=== PATIENT | male | born 1960 | race Two or more races ===

== ENCOUNTER 2017-05-09 09:31 | Emergency (ER) | payer OTHER ==
[~2017-05-09] VITALS: Ht 170.2 cm; Wt 90.7 kg
[~2017-05-09 09:31] MED LIST: ASA81 MG; ASPIR 8181 MG PO; AVAPRO300 MG; BACTROBAN OINT22 GM TP; CARVEDILOL25 MG; CATAFLAN; CIPRO750 MG; COREG CR20 MG; DOLOGESIC 500-1 EACH PO; FLEXERIL; FLONASE16 GM; GABAPENTIN100 MG; GABAPENTIN300 MG; GLUCOPHAGE XR750 MG; GLUCOPHAGE XR750 MG PO; HUMALOG MI100 UNIT/2; HUMALOG MIX 75/10 ML; LANTUS SOL100 UNIT/1; LUMIGAN2.5 M1; MECLIZINE HCL25 M1 PO; METFORMIN HCL1000 MG; MUPIROCIN15 GM TP; NEURONTIN300 MG PO; NIFE60TA3; NIFE60TA3 PO; NORFLEX100MG PO; NOVOLIN R100 UNIT/1; QUINAPRIL-HCTZ1 TA1; SYNTHROID75 MCG; SYNTHROID75 MCG PO; TRUSOPT10 ML; ULTRAM50 MG; ZOCOR20 MG
== END 2017-05-09 16:34 | disposition home or self-care (01) ==
LOC: ER 09:31 → CPU-OBS 10:10 → ER 10:10
DX: I10 Essential (primary) hypertension (principal); R07.89 Other chest pain

== ENCOUNTER → 2017-05-17 | Emergency (ER) | payer OTHER ==
[~2017-05-17] VITALS: Ht 172.7 cm; Wt 149.7 kg
== END | disposition home or self-care (01) ==
LOC: ER 12:21
DX: S60.211A Contusion of right wrist, initial encounter (principal); W22.8XXA Striking against or struck by other objects, initial encounter; Y93.89 Activity, other specified; Y92.89 Other specified places as the place of occurrence of the external cause; Y99.8 Other external cause status

== ENCOUNTER → 2017-05-30 | Emergency (ER) | payer OTHER ==
[~2017-05-30] VITALS: Ht 175.3 cm; Wt 136.1 kg
== END | disposition home or self-care (01) ==
LOC: ER 13:43
DX: L02.511 Cutaneous abscess of right hand (principal); S60.01 Contusion of thumb without damage to nail; W23.0XXS Caught, crushed, jammed, or pinched between moving objects, sequela

== ENCOUNTER 2017-08-11 13:23 | Emergency (ER) | payer OTHER ==
[~2017-08-11] VITALS: Ht 172.7 cm; Wt 145.1 kg
== END 2017-08-11 14:48 | disposition home or self-care (01) ==
LOC: ER 13:23
DX: L02.612 Cutaneous abscess of left foot (principal)

== ENCOUNTER 2017-10-06 09:14 | Inpatient (IN) | payer OTHER ==
[~2017-10-06] VITALS: Ht 172.7 cm; Wt 147.4 kg
[2017-10-08] MEDS ORDERED: ELIQUIS5 MG PO (07:58)
[2017-10-08] MEDS ORDERED: AVAPRO150 MG PO (07:59)
[2017-10-08] MEDS ORDERED: IRON1TAB4 PO (07:59)
[2017-10-08] MEDS ORDERED: CARDIZEM60 MG PO (07:59)
[2017-10-08] MEDS ORDERED: XOPENEX0.63 MG/3 IH (08:00)
== END 2017-10-08 10:31 | disposition home or self-care (01) | DRG 191 ==
LOC: ER 09:14 → MEDJ 15:12 → MEDI 15:12 → MEDJ 10-08 10:31
PROC: B246ZZZ Ultrasonography of Right and Left Heart (ICD-10-PCS; 2017-10-06)
PROC: 4A12X4Z Monitoring of Cardiac Electrical Activity, External Approach (ICD-10-PCS; 2017-10-06)
PROC: 3E0F7GC Introduction of Other Therapeutic Substance into Respiratory Tract, Via Natural or Artificial Opening (ICD-10-PCS; principal; 2017-10-07)
DX: J44.1 Chronic obstructive pulmonary disease with (acute) exacerbation (principal); L97.828 Non-pressure chronic ulcer of other part of left lower leg with other specified severity; I48.0 Paroxysmal atrial fibrillation; I10 Essential (primary) hypertension; D50.8 Other iron deficiency anemias; H54.8 Legal blindness, as defined in USA; E66.01 Morbid (severe) obesity due to excess calories; G47.33 Obstructive sleep apnea (adult) (pediatric); E11.622 Type 2 diabetes mellitus with other skin ulcer; E11.65 Type 2 diabetes mellitus with hyperglycemia

== ENCOUNTER 2018-03-15 15:36 | Emergency (ER) | payer OTHER ==
[~2018-03-15] VITALS: Ht 172.7 cm; Wt 149.7 kg
[~2018-03-15 15:36] MED LIST changes: +AVAPRO150 MG PO; +CARDIZEM60 MG PO; +ELIQUIS5 MG PO; +IRON1TAB4 PO; +XOPENEX0.63 MG/3 IH
== END 2018-03-15 21:43 | disposition home or self-care (01) ==
LOC: ER 15:36
DX: J06.9 Acute upper respiratory infection, unspecified (principal)

== ENCOUNTER 2018-05-07 18:10 | Emergency (ER) | payer OTHER ==
[~2018-05-07] VITALS: Ht 175.3 cm; Wt 158.8 kg
== END 2018-05-08 01:03 | disposition home or self-care (01) ==
LOC: ER 18:10
DX: K52.89 Other specified noninfective gastroenteritis and colitis (principal)

== ENCOUNTER 2018-07-21 00:20 | Emergency (ER) | payer OTHER ==
[~2018-07-21] VITALS: Ht 172.7 cm; Wt 127.0 kg
[2018-07-21] MEDS ORDERED: PEPCID40 MG PO (08:49)
[2018-07-21] MEDS ORDERED: ZOFRAN ODT8 MG PO (08:49)
== END 2018-07-21 09:05 | disposition home or self-care (01) ==
LOC: ER 00:20
DX: K29.60 Other gastritis without bleeding (principal)

== ENCOUNTER 2018-07-23 11:01 | Outpatient (CLI) | payer OTHER ==
[~2018-07-23 11:01] MED LIST changes: +PEPCID40 MG PO; +ZOFRAN ODT8 MG PO
== END 2018-07-23 14:41 | disposition home or self-care (01) ==
LOC: LAB 11:01
DX: N40.0 Benign prostatic hyperplasia without lower urinary tract symptoms (principal); R97.20 Elevated prostate specific antigen [PSA]; N40.1 Benign prostatic hyperplasia with lower urinary tract symptoms

== ENCOUNTER 2018-08-24 13:47 | Emergency (ER) | payer OTHER ==
[~2018-08-24] VITALS: Ht 177.8 cm; Wt 127.0 kg
[2018-08-24] MEDS ORDERED: HUMALOG JU100 UNIT/1 (14:45)
[2018-08-24] MEDS ORDERED: GLUCOPHAGE XR750 MG (14:45)
[2018-08-24] MEDS ORDERED: MICROZIDE12.5 MG (14:46)
[2018-08-24] MEDS ORDERED: ECOTRIN81 MG (14:46)
== END 2018-08-24 17:44 | disposition home or self-care (01) ==
LOC: ER 13:47
DX: J09.X2 Influenza due to identified novel influenza A virus with other respiratory manifestations (principal)

== ENCOUNTER 2018-10-30 17:55 | Emergency (ER) | payer OTHER ==
[~2018-10-30] VITALS: Ht 170.2 cm; Wt 138.3 kg
[~2018-10-30 17:55] MED LIST changes: +ECOTRIN81 MG; +HUMALOG JU100 UNIT/1; +MICROZIDE12.5 MG
== END 2018-10-31 | disposition home or self-care (01) ==
LOC: ER 17:55
DX: A41.89 Other specified sepsis (principal); M25.571 Pain in right ankle and joints of right foot; N39.0 Urinary tract infection, site not specified

== ENCOUNTER 2018-12-24 10:31 | Outpatient (CLI) | payer OTHER | END 2018-12-24 10:42 | disposition home or self-care (01) | LOC: NUCLEAR 10:31 | DX: M14.672 Charcot's joint, left ankle and foot (principal); I73.9 Peripheral vascular disease, unspecified ==

== ENCOUNTER 2019-01-19 14:10 | Emergency (ER) | payer OTHER ==
[~2019-01-19] VITALS: Ht 172.7 cm; Wt 127.0 kg
== END 2019-01-19 18:09 | disposition home or self-care (01) ==
LOC: ER 14:10 → EMR PED 14:10 → ER 15:18
DX: G89.29 Other chronic pain (principal); M25.562 Pain in left knee; M25.561 Pain in right knee

== ENCOUNTER 2019-02-26 20:10 | Emergency (ER) | payer OTHER ==
[~2019-02-26] VITALS: Ht 175.3 cm; Wt 158.8 kg
[2019-02-26] MEDS ORDERED: NIFEDIPINE20 MG (20:50)
[2019-02-26] MEDS ORDERED: CARVEDILOL ER40 MG (20:50)
[2019-02-26] MEDS ORDERED: ZYLOPRIM300 MG (20:51)
[2019-02-26] MEDS ORDERED: AVAPRO150 MG (20:51)
[2019-02-26] MEDS ORDERED: SIMVASTATIN80 MG (20:51)
== END 2019-02-26 23:01 | disposition home or self-care (01) ==
LOC: ER 20:10
DX: R00.2 Palpitations (principal); F41.1 Generalized anxiety disorder

== ENCOUNTER 2019-04-04 12:01 | Emergency (ER) | payer OTHER ==
[~2019-04-04] VITALS: Ht 172.7 cm; Wt 117.9 kg
[~2019-04-04 12:01] MED LIST changes: +AVAPRO150 MG; +CARVEDILOL ER40 MG; +NIFEDIPINE20 MG; +SIMVASTATIN80 MG; +ZYLOPRIM300 MG
== END 2019-04-04 17:05 | disposition home or self-care (01) ==
LOC: ER 12:01
DX: K29.60 Other gastritis without bleeding (principal)

== ENCOUNTER 2019-12-23 13:21 | Inpatient (IN) | payer OTHER ==
[~2019-12-23] VITALS: Ht 162.6 cm; Wt 136.1 kg
== END 2020-01-13 22:36 | disposition home or self-care (01) | DRG 623 ==
LOC: ER 13:21 → SEC-K 20:14 → SURH 20:14 → SEC-K 12-24 12:05 → MEDI 12-24 18:51 → SEC-K 12-24 21:55 → MEDI 12-24 21:56 → SURH 01-04 17:05
PROVIDERS: ADMIT Internal Medicine; ATTEND Internal Medicine
PROC: B54DZZZ Ultrasonography of Bilateral Lower Extremity Veins (ICD-10-PCS; 2019-12-23)
PROC: 3E0F7GC Introduction of Other Therapeutic Substance into Respiratory Tract, Via Natural or Artificial Opening (ICD-10-PCS; 2019-12-23)
PROC: 4A033R1 Measurement of Arterial Saturation, Peripheral, Percutaneous Approach (ICD-10-PCS; 2019-12-23)
PROC: B44HZZZ Ultrasonography of Bilateral Lower Extremity Arteries (ICD-10-PCS; 2019-12-23)
PROC: 0T9B70Z Drainage of Bladder with Drainage Device, Via Natural or Artificial Opening (ICD-10-PCS; 2019-12-23)
PROC: BT4JZZZ Ultrasonography of Kidneys and Bladder (ICD-10-PCS; 2019-12-25)
PROC: 8E0ZXY6 Isolation (ICD-10-PCS; 2019-12-25)
PROC: 0JBR0ZZ Excision of Left Foot Subcutaneous Tissue and Fascia, Open Approach (ICD-10-PCS; principal; 2019-12-28)
DX: E11.621 Type 2 diabetes mellitus with foot ulcer (principal); B37.89 Other sites of candidiasis; L97.423 Non-pressure chronic ulcer of left heel and midfoot with necrosis of muscle; L03.116 Cellulitis of left lower limb; B95.61 Methicillin susceptible Staphylococcus aureus infection as the cause of diseases classified elsewhere; I87.2 Venous insufficiency (chronic) (peripheral); G47.33 Obstructive sleep apnea (adult) (pediatric); E03.8 Other specified hypothyroidism; E66.01 Morbid (severe) obesity due to excess calories; E11.610 Type 2 diabetes mellitus with diabetic neuropathic arthropathy; E11.65 Type 2 diabetes mellitus with hyperglycemia; E11.40 Type 2 diabetes mellitus with diabetic neuropathy, unspecified; R31.29 Other microscopic hematuria; F41.1 Generalized anxiety disorder; Z79.4 Long term (current) use of insulin; Z03.818 Encounter for observation for suspected exposure to other biological agents ruled out

== ENCOUNTER 2020-01-14 10:33 | Emergency (ER) | payer OTHER ==
[~2020-01-14] VITALS: Ht 172.7 cm; Wt 149.7 kg
== END 2020-01-16 00:08 | disposition home or self-care (01) ==
LOC: ER 10:33
DX: E11.621 Type 2 diabetes mellitus with foot ulcer (principal); L97.428 Non-pressure chronic ulcer of left heel and midfoot with other specified severity; R53.81 Other malaise; J45.998 Other asthma; Z74.01 Bed confinement status

== ENCOUNTER 2020-01-20 13:05 | Emergency (ER) | payer OTHER ==
[~2020-01-20] VITALS: Ht 172.7 cm; Wt 136.1 kg
[2020-01-20] MEDS ORDERED: ZITHROMAX500 MG PO (15:02)
== END 2020-01-20 16:52 | disposition home or self-care (01) ==
LOC: ER 13:05
DX: H66.91 Otitis media, unspecified, right ear (principal)

== ENCOUNTER 2020-01-27 14:07 | Emergency (ER) | payer OTHER ==
[~2020-01-27] VITALS: Ht 172.7 cm; Wt 136.1 kg
[~2020-01-27 14:07] MED LIST changes: +ZITHROMAX500 MG PO
[2020-01-27] MEDS ORDERED: ANALPRAM HC 2.530 GM RECTAL (14:24)
== END 2020-01-27 15:30 | disposition home or self-care (01) ==
LOC: ER 14:07
DX: K64.8 Other hemorrhoids (principal)

== ENCOUNTER 2020-02-12 14:50 | Inpatient (IN) | payer OTHER ==
[~2020-02-12] VITALS: Ht 172.7 cm; Wt 136.1 kg
[~2020-02-12 14:50] MED LIST changes: +ANALPRAM HC 2.530 GM RECTAL
--- NOTE | 2020-02-12 16:18 | NUR ---
PTE SE RECIBE POR MOLESTIA EN EL CUERPO REFIERE PARAMEDICO Y PTE.
--- NOTE | 2020-02-12 16:19 | NUR ---
SE ORIENTA AL PACIENTE SOBRE EL TX. SE EXTRAEN MUESTRAS DE DIANNA BAJO MEDIDAS ASEPTICAS SE ROTULAN Y ENVIAN AL LABORATORIO. PTE CON ARCE DE COMUNIDAD. AL MOMENTO VACIO SIN ORINA.
== END 2020-02-16 12:38 | disposition home or self-care (01) | DRG 690 ==
LOC: ER 14:50 → MEDI 20:12
PROVIDERS: ADMIT Internal Medicine; ATTEND Internal Medicine
DX: N39.0 Urinary tract infection, site not specified (principal); L97.518 Non-pressure chronic ulcer of other part of right foot with other specified severity; E11.621 Type 2 diabetes mellitus with foot ulcer; E66.01 Morbid (severe) obesity due to excess calories; B96.29 Other Escherichia coli [E. coli] as the cause of diseases classified elsewhere; Z20.828 Contact with and (suspected) exposure to other viral communicable diseases; Z74.01 Bed confinement status

== ENCOUNTER 2020-03-25 16:29 | Inpatient (IN) | payer OTHER ==
[~2020-03-25] VITALS: Ht 172.7 cm; Wt 108.9 kg
--- NOTE | 2020-03-25 16:40 | NUR ---
PTE ALERTA Y ORIENTADO X 3 ESFERAS RECIBIDO EN AMBULANCIA,EN COMPANIA DE FAMILIAR,REFIERE VENIR POR ULCERA EN PIERNA LT.
--- NOTE | 2020-03-25 17:33 | NUR ---
PACIENTE ALERTA Y ORIENTADO EN FIFI KAVON ESFERAS. MS. CHAUDHARI ORIENTA A PACIENTE SOBRE PROCEDIMIENTO Y TX, REFIERE ENTENDER, EXTRAE MUESTRAS DE LABORATROIO CON MEDIDAS ASEPTICAS Y ADMINISTRA MEDICAMENTOS ANTHONY ORDEN MEDICA.
--- NOTE | 2020-03-26 01:30 | NUR ---
SE RECIBE MASCULINO ALERTA Y ORIENTADO POR KAVON ESFERAS, EN [place] CON BARANDAS SEGURAS Y ELEVADAS. AREA DE VENOPUNCION JENNYFER DE EDEMA O ENROJECIMIENTO. RECIBIENDO IVF ORDENADO. ARCE PATENTE DRENANDO ORINA COLOR AMARILLO. SE MANTIENE EN OBSERVACION POR CAMBIOS EN ESPERA DE MEDICO CONSULTADO.
--- NOTE | 2020-03-26 07:02 | NUR ---
PACIENTE ALERTA Y ORIENTADO EN FIFI KAVON ESFERAS, PRESENTA BUEN PATRON RESPIRATORIO Y JENNYFER DE DOLOR. RECIBIENDO 0.9% NSS A 150 ML/HR, VENOPUNCION PATENTE Y JENNYFER DE S/S DE FLEBITIS E INFILTRACION, SONDA URINARIA DRENANDO ORINA AMARILLO INTENSO. PENDIENTE EVALUACION DE MEDICINA INTERNA DR CHAUDHARI JOHNSON POR ULCERA EN PIERNA LT.
== END 2020-03-29 17:47 | disposition home or self-care (01) | DRG 638 ==
LOC: ER 16:29 → SEC-K 03-26 14:37 → SURG 03-26 19:26 → MEDJ 03-26 20:21
PROVIDERS: ADMIT Internal Medicine; ATTEND Internal Medicine
PROC: 3E0F7GC Introduction of Other Therapeutic Substance into Respiratory Tract, Via Natural or Artificial Opening (ICD-10-PCS; principal; 2020-03-26)
DX: E11.628 Type 2 diabetes mellitus with other skin complications (principal); L97.528 Non-pressure chronic ulcer of other part of left foot with other specified severity; L08.89 Other specified local infections of the skin and subcutaneous tissue; Z20.828 Contact with and (suspected) exposure to other viral communicable diseases; B96.5 Pseudomonas (aeruginosa) (mallei) (pseudomallei) as the cause of diseases classified elsewhere; B95.2 Enterococcus as the cause of diseases classified elsewhere; B95.1 Streptococcus, group B, as the cause of diseases classified elsewhere; I13.10 Hypertensive heart and chronic kidney disease without heart failure, with stage 1 through stage 4 chronic kidney disease, or unspecified chronic kidney disease; N18.9 Chronic kidney disease, unspecified; E66.01 Morbid (severe) obesity due to excess calories

== ENCOUNTER 2021-08-02 11:33 | Inpatient (IN) | payer OTHER ==
[~2021-08-02] VITALS: Ht 172.7 cm; Wt 99.8 kg
[2021-08-02] MEDS ORDERED: GLUMETZA500 MG (11:50)
[2021-08-02] MEDS ORDERED: HUMALOG100 UNIT/2 (11:50)
[2021-08-02] MEDS ORDERED: HUMULIN R100 UNIT/1 (11:51)
[2021-08-03] MEDS ORDERED: FLONASE16 GM (10:46)
[2021-08-03] MEDS ORDERED: DORZOLAMIDE HCL10 ML (10:47)
[2021-08-03] MEDS ORDERED: SERTRALINE HCL50 MG (10:47)
[2021-08-03] MEDS ORDERED: LUMIGAN2.5 M1 (10:47)
[2021-08-03] MEDS ORDERED: HUMALOG MI100 UNIT/2 (10:47)
[2021-08-03] MEDS ORDERED: CARVEDILOL12.5 M1 (10:47)
[2021-08-03] MEDS ORDERED: LEVOTHYROXINE25 MC1 (10:47)
[2021-08-03] MEDS ORDERED: COMBIGAN EYE DRO5 ML (10:48)
[2021-08-03] MEDS ORDERED: BUDESONIDE-FO10.2 G1 (10:48)
== END 2021-08-10 18:09 | disposition home or self-care (01) | DRG 690 ==
LOC: ER 11:33 → SEC-K 21:17 → MEDJ 21:17
PROVIDERS: ADMIT Internal Medicine; ATTEND Internal Medicine
PROC: 3E0F7GC Introduction of Other Therapeutic Substance into Respiratory Tract, Via Natural or Artificial Opening (ICD-10-PCS; principal; 2021-08-04)
DX: N39.0 Urinary tract infection, site not specified (principal); J45.901 Unspecified asthma with (acute) exacerbation; L97.328 Non-pressure chronic ulcer of left ankle with other specified severity; N40.1 Benign prostatic hyperplasia with lower urinary tract symptoms; I13.10 Hypertensive heart and chronic kidney disease without heart failure, with stage 1 through stage 4 chronic kidney disease, or unspecified chronic kidney disease; E11.22 Type 2 diabetes mellitus with diabetic chronic kidney disease; E11.40 Type 2 diabetes mellitus with diabetic neuropathy, unspecified; E11.621 Type 2 diabetes mellitus with foot ulcer; N18.9 Chronic kidney disease, unspecified; L08.89 Other specified local infections of the skin and subcutaneous tissue; B95.2 Enterococcus as the cause of diseases classified elsewhere; B96.4 Proteus (mirabilis) (morganii) as the cause of diseases classified elsewhere; N41.8 Other inflammatory diseases of prostate; G47.33 Obstructive sleep apnea (adult) (pediatric); E66.01 Morbid (severe) obesity due to excess calories; Z74.01 Bed confinement status; Z79.84 Long term (current) use of oral hypoglycemic drugs

== ENCOUNTER 2021-08-13 11:53 | Emergency (ER) | payer OTHER ==
[~2021-08-13] VITALS: Ht 172.7 cm; Wt 99.8 kg
[~2021-08-13 11:53] MED LIST changes: +BUDESONIDE-FO10.2 G1; +CARVEDILOL12.5 M1; +COMBIGAN EYE DRO5 ML; +DORZOLAMIDE HCL10 ML; +GLUMETZA500 MG; +HUMALOG100 UNIT/2; +HUMULIN R100 UNIT/1; +LEVOTHYROXINE25 MC1; +SERTRALINE HCL50 MG
== END 2021-08-13 14:24 | disposition home or self-care (01) ==
LOC: ER 11:53
DX: T83.9XXA Unspecified complication of genitourinary prosthetic device, implant and graft, initial encounter (principal)

== ENCOUNTER 2021-08-30 19:41 | Emergency (ER) | payer OTHER ==
[~2021-08-30] VITALS: Ht 172.7 cm; Wt 99.8 kg
== END 2021-08-31 00:43 | disposition home or self-care (01) ==
LOC: ER 19:41
DX: R33.9 Retention of urine, unspecified (principal); R07.9 Chest pain, unspecified; Z88.2 Allergy status to sulfonamides; Z88.8 Allergy status to other drugs, medicaments and biological substances; E11.9 Type 2 diabetes mellitus without complications; Z79.4 Long term (current) use of insulin; Z79.84 Long term (current) use of oral hypoglycemic drugs; I10 Essential (primary) hypertension

== ENCOUNTER 2022-01-22 22:36 | Emergency (ER) | payer OTHER ==
[~2022-01-22] VITALS: Ht 167.6 cm; Wt 127.0 kg
[2022-01-23] MEDS ORDERED: AZITHROMYCIN500 MG PO (06:22)
[2022-01-23] MEDS ORDERED: LEVALBUTER1.25 MG/0. IH (06:22)
[2022-01-23] MEDS ORDERED: BUDESONIDE0.5 MG/21 IH (06:22)
[2022-01-23] MEDS ORDERED: MUCINEX DM ER1 EAC1 PO (06:22)
== END 2022-01-23 09:09 | disposition home or self-care (01) ==
LOC: ER 22:36
DX: J06.9 Acute upper respiratory infection, unspecified (principal); R06.02 Shortness of breath; E11.9 Type 2 diabetes mellitus without complications; Z79.4 Long term (current) use of insulin; Z79.84 Long term (current) use of oral hypoglycemic drugs; Z20.822 Contact with and (suspected) exposure to COVID-19; Z88.2 Allergy status to sulfonamides; Z88.8 Allergy status to other drugs, medicaments and biological substances

== ENCOUNTER → 2022-02-15 | Outpatient (CLI) | payer OTHER ==
[~2022-02-15] MED LIST changes: +AZITHROMYCIN500 MG PO; +BUDESONIDE0.5 MG/21 IH; +LEVALBUTER1.25 MG/0. IH; +MUCINEX DM ER1 EAC1 PO
== END | disposition home or self-care (01) ==
LOC: RAD 12:01
PROVIDERS: ATTEND General Practice
DX: M25.561 Pain in right knee (principal); M25.562 Pain in left knee; M25.571 Pain in right ankle and joints of right foot

== ENCOUNTER 2022-07-11 14:04 | Outpatient (CLI) | payer OTHER | END 2022-07-11 14:07 | disposition home or self-care (01) | LOC: RAD 14:04 | PROVIDERS: ATTEND Physical Medicine & Rehabilitation | DX: M25.561 Pain in right knee (principal); M25.562 Pain in left knee ==

== ENCOUNTER 2022-07-26 13:49 | Outpatient (CLI) | payer OTHER | END 2022-07-26 13:58 | disposition home or self-care (01) | LOC: RAD 13:49 | PROVIDERS: ATTEND General Practice | DX: M25.572 Pain in left ankle and joints of left foot (principal); M25.571 Pain in right ankle and joints of right foot; M79.672 Pain in left foot; M79.671 Pain in right foot ==

== ENCOUNTER 2022-10-07 15:15 | Emergency (ER) | payer OTHER ==
[~2022-10-07] VITALS: Ht 175.3 cm; Wt 136.1 kg
== END 2022-10-07 20:19 | disposition home or self-care (01) ==
LOC: ER 15:15
DX: B02.8 Zoster with other complications (principal); R53.81 Other malaise; Z88.2 Allergy status to sulfonamides; Z91.041 Radiographic dye allergy status; Z88.1 Allergy status to other antibiotic agents

== ENCOUNTER 2022-10-28 12:16 | Emergency (ER) | payer OTHER ==
[~2022-10-28] VITALS: Ht 172.7 cm; Wt 142.4 kg
[2022-10-28] MEDS ORDERED: SYMBICORT 80/10.2 GM (12:43)
== END 2022-10-28 21:39 | disposition home or self-care (01) ==
LOC: ER 12:16
DX: R00.2 Palpitations (principal); I25.10 Atherosclerotic heart disease of native coronary artery without angina pectoris; E78.00 Pure hypercholesterolemia, unspecified; M19.90 Unspecified osteoarthritis, unspecified site; J44.9 Chronic obstructive pulmonary disease, unspecified; I50.9 Heart failure, unspecified; E05.80 Other thyrotoxicosis without thyrotoxic crisis or storm; Z88.2 Allergy status to sulfonamides; Z91.041 Radiographic dye allergy status; N39.0 Urinary tract infection, site not specified; Z20.822 Contact with and (suspected) exposure to COVID-19

== ENCOUNTER 2023-07-25 10:59 | Emergency (ER) | payer OTHER ==
[~2023-07-25] VITALS: Ht 162.6 cm; Wt 204.1 kg
[~2023-07-25 10:59] MED LIST changes: +SYMBICORT 80/10.2 GM
[2023-07-25] MEDS ORDERED: 0.9 % SODIUM CHLORIDE 1,000 ML IV SCH (11:15)
[2023-07-25 11:44] LABS: HEMATOCRIT 38.8 % (39.0-48.0); MEAN CELL VOLUME 92.1 fL (80.0-100.00); MEAN CORPUSCULAR HEMOGLOBIN 30.9 pg (27.00-32.0); MEAN CORPUSCULAR HGB CONC 33.6 g/dl (32.0-36.0); PLATELET COUNT 291 K/uL (150-450); RED BLOOD COUNT 4.21 M/uL (4.00-6.00); RED CELL DISTRIBUTION WIDTH 14.4 % (11.5-14.5)
[2023-07-25 13:25] LABS: CALCIUM 8.9 mg/dL (8.5-10.1); CREATININE SERUM 1.04 mg/dL (0.70-1.30); GFR 71.9; POTASSIUM 5.09 mEq/L (3.5-5.1)
[2023-07-25 14:13] LABS: ABG PH 7.404 (7.35-7.45); ABG PO2 84.4 mmHg (80-100); BASE EXCESS -1.1 mmol/l; BICARBONATE 23.2 mmol/l (23-25); SaO2 96.3 %; Tco2 24.4 mmol/l; allen test SATISFACTORY; o2 21 %; puncture site RADIAL RIGHT
== END 2023-07-25 17:18 | disposition home or self-care (01) ==
LOC: ER 10:59
PROVIDERS: Emergency Medicine
DX: J22 Unspecified acute lower respiratory infection (principal); R06.02 Shortness of breath; Z20.822 Contact with and (suspected) exposure to COVID-19; I10 Essential (primary) hypertension; E03.8 Other specified hypothyroidism; E11.9 Type 2 diabetes mellitus without complications; Z79.4 Long term (current) use of insulin; Z88.1 Allergy status to other antibiotic agents; Z88.2 Allergy status to sulfonamides; Z91.041 Radiographic dye allergy status
CPT/HCPCS: 36415; 71045; 82803; 93005; 96365; 96366; 99283; J7030

== ENCOUNTER 2023-07-29 12:20 | Emergency (ER) | payer OTHER ==
[~2023-07-29] VITALS: Ht 172.7 cm; Wt 165.1 kg
[2023-07-29] MEDS ORDERED: ONDANSETRON HCL 2 MG/ML VIAL IV STA (12:23)
[2023-07-29] MEDS ORDERED: FAMOTIDINE/PF 20 MG in 0.9 % SODIUM CHLORIDE 8 ML IV PUSH STA (12:23)
[2023-07-29] MEDS ORDERED: 0.9 % SODIUM CHLORIDE 1,000 ML IV SCH (12:30)
[2023-07-29 13:39] LABS: HEMATOCRIT 37.4 % (39.0-48.0); HEMOGLOBIN 12.4 g/dL (13-16.00); MEAN CELL VOLUME 92.9 fL (80.0-100.00); MEAN CORPUSCULAR HEMOGLOBIN 30.8 pg (27.00-32.0); MEAN CORPUSCULAR HGB CONC 33.1 g/dl (32.0-36.0); PLATELET COUNT 286 K/uL (150-450); RED BLOOD COUNT 4.03 M/uL (4.00-6.00); RED CELL DISTRIBUTION WIDTH 14.9 % (11.5-14.5)
[2023-07-29 14:12] LABS: AMYLASE 26 U/L (25-115); LIPASE 9 U/L (13-75)
== END 2023-07-29 17:44 | disposition home or self-care (01) ==
LOC: ER 12:20
PROVIDERS: Emergency Medicine
DX: R11.0 Nausea (principal); I10 Essential (primary) hypertension; E11.9 Type 2 diabetes mellitus without complications; Z79.4 Long term (current) use of insulin; Z88.1 Allergy status to other antibiotic agents; Z88.2 Allergy status to sulfonamides; Z91.041 Radiographic dye allergy status
CPT/HCPCS: 36415; 96365; 96366; 99282; J2405; J3490; J7030

== ENCOUNTER 2023-11-19 13:27 | Inpatient (IN) | payer OTHER ==
[~2023-11-19] VITALS: Ht 152.4 cm; Wt 148.3 kg
[~2023-11-19 13:27] MED LIST changes: +AMMONIUM LACTA385 GM; +AVAPRO300 MG PO; +CARVEDILOL25 M1; +CARVEDILOL3.125 MG PO; +CEFUROXIME500 MG; +CLOTRIMAZOLE-BE15 G1 TOP; +GABAPENTIN100 M2; +GABAPENTIN300 MG PO; +LEVOTHYROXINE25 MCG PO; +NIFEDIPINE ER60 MG PO; +SIMVASTATIN20 MG
--- NOTE | 2023-11-19 13:45 | NUR ---
SE RECIBE PTE ALERTA Y ORIENTADO X3 EL MISMO REFIERE TENER KANE FRAVTURA EN EL TOBILLO DE LA PIERNA IZQUIERDA Y ANOCHE ESTUVO SUPURANDO POR EL MISMO.
--- NOTE | 2023-11-19 16:49 | NUR ---
MASCULINO EVALUADO POR TALI HARMON. ALEJANDRO [place] ORIENTA A PTE SOBRE ORDENES MEDICAS. SE COLECTAN MUESTRAS DE LABORATORIO BAJO MEDIDAS ASEPTICAS Y SE CANALIZA.
[2023-11-19 17:04] LABS: ERYTHROCYTE SEDIMENTATION RATE 113 mm/hr; HEMATOCRIT 34.5 % (39.0-48.0); HEMOGLOBIN 11.6 g/dL (13-16.00); MEAN CELL VOLUME 91.3 fL (80.0-100.00); MEAN CORPUSCULAR HEMOGLOBIN 30.6 pg (27.00-32.0); MEAN CORPUSCULAR HGB CONC 33.5 g/dl (32.0-36.0); PLATELET COUNT 359 K/uL (150-450); RED BLOOD COUNT 3.78 M/uL (4.00-6.00); RED CELL DISTRIBUTION WIDTH 14.7 % (11.5-14.5)
[2023-11-19 17:23] LABS: PH,URINE 7.5 (5.0-8.0); URINE APPEARANCE Clear; URINE BILIRRUBIN Negative (NEGATIVE); URINE BLOOD Negative; URINE COLOR Yellow; URINE GLUCOSE Negative (NEGATIVE); URINE KETONE Negative (NEGATIVE); URINE LEUKOCYTE Negative; URINE NITRATE Negative; URINE PROTEIN Negative (NEGATIVE); URINE UROBILINOGEN 0.2 E.U./dl
[2023-11-19 17:26] LABS: URINE RBC 2.8 uL (0.0-20.8)
[2023-11-19 17:30] LABS: URINE EPITHELIAL CELLS 1.2 uL (0.0-38.8); URINE WBC 0.3 uL (0.0-23.2)
[2023-11-19 17:45] LABS: ALBUMIN 3.1 gm/dL (3.4-5.0); BILIRUBIN TOTAL 0.72 mg/dL (0.3-1.2); CALCIUM 9.1 mg/dL (8.5-10.1); CREATININE SERUM 0.92 mg/dL (0.70-1.30); GFR 82.83; GLOBULINA 4.3 G/DL (2.4-3.5); POTASSIUM 4.27 mEq/L (3.5-5.1); TOTAL PROTEIN 7.4 gm/dL (6.4-8.2)
[2023-11-19] MEDS ORDERED: CEFTRIAXONE SODIUM 2,000 MG VIAL IV ONE (18:00)
[2023-11-19] MEDS ORDERED: CEFTRIAXONE SODIUM 2,000 MG VIAL ONE (18:02)
[2023-11-19] MEDS ORDERED: PIPERACILLIN/TAZOBACTAM SODIUM 3.375 GM in 0.9 % SODIUM CHLORIDE 100 ML IV SCH (19:12)
[2023-11-19] MEDS ORDERED: 0.9 % SODIUM CHLORIDE 1,000 ML IV SCH (19:15)
[2023-11-19] MEDS ORDERED: ONDANSETRON HCL 4 MG in 0.9 % SODIUM CHLORIDE 50 ML IV PRN (19:15)
[2023-11-19] MEDS ORDERED: INSULIN LISPRO 1,000 UNIT/10 ML UNITS SUBCUTANEO PRN (19:15)
[2023-11-19] MEDS ORDERED: ACETAMINOPHEN 500 MG GEL..CAP PO PRN (19:15)
[2023-11-19] MEDS ORDERED: DEXTROSE 50 % IN WATER 0.5 G/ML DISP.SYRIN IV PRN (19:15)
[2023-11-19] MEDS ORDERED: PIPERACILLIN/TAZOBACTAM SODIUM 3.375 GM VIAL IV ONE (19:38)
[2023-11-19 20:55] LABS: INR 1.1; PARTIAL THROMBOPLASTIN TIME 33.3 SECONDS (22.0-34.0); PROTHROMBIN TIME 11.5 SECONDS (9.0-11.5)
[2023-11-19] MEDS ORDERED: CARVEDILOL 3.125 MG TABLET PO SCH (21:00)
[2023-11-20] MEDS ORDERED: IPRATROPIUM BROMIDE 0.5 MG/2.5 ML AMPUL.NEB IH SCH (01:00)
[2023-11-20] MEDS ORDERED: APIXABAN 5 MG TABLET PO SCH (05:00)
[2023-11-20] MEDS ORDERED: FAMOTIDINE/PF 20 MG/2 ML VIAL ONE (08:31)
[2023-11-20] MEDS ORDERED: NIFEDIPINE 60 MG TAB.SA.OSM PO SCH (09:00)
[2023-11-20] MEDS ORDERED: FAMOTIDINE/PF 20 MG in 0.9 % SODIUM CHLORIDE 8 ML IV PUSH SCH (09:00)
[2023-11-20] MEDS ORDERED: SERTRALINE HCL 50 MG TABLET PO SCH (09:00)
[2023-11-20] MEDS ORDERED: VANCOMYCIN HCL 5 MG/ML REDILUIDO IV SCH (21:00)
[2023-11-21 05:09] LABS: HEMATOCRIT 34.8 % (39.0-48.0); MEAN CELL VOLUME 92.8 fL (80.0-100.00); MEAN CORPUSCULAR HGB CONC 33.1 g/dl (32.0-36.0); PLATELET COUNT 353 K/uL (150-450); RED BLOOD COUNT 3.75 M/uL (4.00-6.00); RED CELL DISTRIBUTION WIDTH 14.6 % (11.5-14.5)
[2023-11-21 05:21] LABS: HEMOGLOBIN 11.5 g/dL (13-16.00); MEAN CORPUSCULAR HEMOGLOBIN 30.6 pg (27.00-32.0)
[2023-11-21 05:33] LABS: ALBUMIN 2.9 gm/dL (3.4-5.0); BILIRUBIN TOTAL 0.83 mg/dL (0.3-1.2); CALCIUM 8.5 mg/dL (8.5-10.1); CREATININE SERUM 0.94 mg/dL (0.70-1.30); GFR 80.79; GLOBULINA 3.6 G/DL (2.4-3.5); MAGNESIUM 1.9 mg/dL (1.8-2.4); PHOSPHOROUS 3.7 mg/dL (2.5-4.9); POTASSIUM 4.72 mEq/L (3.5-5.1); TOTAL PROTEIN 6.5 gm/dL (6.4-8.2)
[2023-11-21 05:36] LABS: C-REACTIVE PROTEIN 1.92 MG/DL (0.00-0.29)
[2023-11-21] MEDS ORDERED: LACTOBACILLUS ACIDOPHILUS 1 CAP CAP PO SCH (17:00)
[2023-11-21] MEDS ORDERED: FAMOtidine 20 MG TABLET PO SCH (21:00)
[2023-11-22] MEDS ORDERED: CEFEPIME HCL 2,000 MG VIAL IV SCH (17:00)
[2023-11-24 12:04] LABS: HEMATOCRIT 37.3 % (39.0-48.0); HEMOGLOBIN 12.6 g/dL (13-16.00); MEAN CORPUSCULAR HEMOGLOBIN 31.3 pg (27.00-32.0); MEAN CORPUSCULAR HGB CONC 33.7 g/dl (32.0-36.0); PLATELET COUNT 389 K/uL (150-450); RED BLOOD COUNT 4.02 M/uL (4.00-6.00); RED CELL DISTRIBUTION WIDTH 14.7 % (11.5-14.5)
[2023-11-24 12:35] LABS: ALBUMIN 2.9 gm/dL (3.4-5.0); BILIRUBIN TOTAL 0.59 mg/dL (0.3-1.2); CREATININE SERUM 0.83 mg/dL (0.70-1.30); GFR 93.27; GLOBULINA 4.1 G/DL (2.4-3.5); MAGNESIUM 1.8 mg/dL (1.8-2.4); PHOSPHOROUS 2.6 mg/dL (2.5-4.9); POTASSIUM 4.53 mEq/L (3.5-5.1)
[2023-11-24 12:44] LABS: C-REACTIVE PROTEIN 1.4 MG/DL (0.00-0.29)
[2023-11-26] MEDS ORDERED: SODIUM CHLORIDE 0.45 % 1,000 ML IV SCH (10:30)
[2023-11-26] MEDS ORDERED: [UNRECOGNIZED DRUG - OTHER] PO SCH ×2 (17:00→18:00)
[2023-11-26] MEDS ORDERED: BANANA FLAKES PO SCH ×2 (17:00→18:00)
[2023-11-26] MEDS ORDERED: VANCOMYCIN HCL 1,000 MG VIAL IV SCH (21:00)
[2023-11-27] MEDS ORDERED: NIFEDIPINE 90 MG TAB.SA.OSM PO SCH (09:00)
[2023-11-27 13:02] LABS: HEMATOCRIT 36.1 % (39.0-48.0); MEAN CELL VOLUME 93.9 fL (80.0-100.00); MEAN CORPUSCULAR HEMOGLOBIN 31.3 pg (27.00-32.0); MEAN CORPUSCULAR HGB CONC 33.4 g/dl (32.0-36.0); PLATELET COUNT 310 K/uL (150-450); RED BLOOD COUNT 3.84 M/uL (4.00-6.00); RED CELL DISTRIBUTION WIDTH 14.5 % (11.5-14.5)
[2023-11-27 13:51] LABS: ALBUMIN 2.8 gm/dL (3.4-5.0); BILIRUBIN TOTAL 0.47 mg/dL (0.3-1.2); CALCIUM 8.8 mg/dL (8.5-10.1); CREATININE SERUM 0.72 mg/dL (0.70-1.30); GFR 109.9; GLOBULINA 3.9 G/DL (2.4-3.5); POTASSIUM 4.24 mEq/L (3.5-5.1); TOTAL PROTEIN 6.7 gm/dL (6.4-8.2)
[2023-11-28] MEDS ORDERED: GABAPENTIN 300 MG CAPSULE PO SCH (17:00)
[2023-11-28] MEDS ORDERED: CHOLESTYRAMINE/ASPARTAME LIGHT 4 G/PKT PACKET PO SCH (20:20)
[2023-11-29 10:05] LABS: HEMATOCRIT 37.2 % (39.0-48.0); HEMOGLOBIN 12.3 g/dL (13-16.00); MEAN CELL VOLUME 93.9 fL (80.0-100.00); PLATELET COUNT 328 K/uL (150-450); RED BLOOD COUNT 3.96 M/uL (4.00-6.00); RED CELL DISTRIBUTION WIDTH 14.8 % (11.5-14.5)
[2023-11-29 10:39] LABS: ALBUMIN 2.9 gm/dL (3.4-5.0); BILIRUBIN TOTAL 0.6 mg/dL (0.3-1.2); CALCIUM 9.1 mg/dL (8.5-10.1); CREATININE SERUM 0.89 mg/dL (0.70-1.30); GFR 86.06; GLOBULINA 3.9 G/DL (2.4-3.5); MAGNESIUM 1.7 mg/dL (1.8-2.4); PHOSPHOROUS 2.8 mg/dL (2.5-4.9); POTASSIUM 4.51 mEq/L (3.5-5.1); TOTAL PROTEIN 6.8 gm/dL (6.4-8.2)
[2023-11-29 10:44] LABS: C-REACTIVE PROTEIN 2.04 MG/DL (0.00-0.29)
[2023-11-29] MEDS ORDERED: MAGNESIUM SULFATE IN WATER 50 ML IV SCH (18:00)
[2023-12-02 06:32] LABS: HEMATOCRIT 34.3 % (39.0-48.0); HEMOGLOBIN 11.4 g/dL (13-16.00); MEAN CELL VOLUME 92.8 fL (80.0-100.00); MEAN CORPUSCULAR HGB CONC 33.4 g/dl (32.0-36.0); PLATELET COUNT 281 K/uL (150-450); RED BLOOD COUNT 3.69 M/uL (4.00-6.00); RED CELL DISTRIBUTION WIDTH 14.4 % (11.5-14.5)
[2023-12-02 07:12] LABS: ALBUMIN 2.9 gm/dL (3.4-5.0); BILIRUBIN TOTAL 0.68 mg/dL (0.3-1.2); CALCIUM 8.8 mg/dL (8.5-10.1); CREATININE SERUM 0.75 mg/dL (0.70-1.30); GFR 104.85; GLOBULINA 3.6 G/DL (2.4-3.5); POTASSIUM 4.86 mEq/L (3.5-5.1); TOTAL PROTEIN 6.5 gm/dL (6.4-8.2)
[2023-12-03] MEDS ORDERED: ELIQUIS5 MG PO (12:45)
[2023-12-03] MEDS ORDERED: IPRATROPIU0.2 MG/1 M IH (12:45)
[2023-12-03] MEDS ORDERED: CEFUROXIME500 MG PO (12:45)
[2023-12-03] MEDS ORDERED: CARVEDILOL3.125 MG PO (12:46)
[2023-12-03] MEDS ORDERED: PROCARDIA XL90 MG PO (12:47)
[2023-12-03] MEDS ORDERED: CHOLESTYRAMINE L4 GM PO (12:47)
[2023-12-03] MEDS ORDERED: SIMVASTATIN80 MG PO (12:47)
[2023-12-03] MEDS ORDERED: SERTRALINE HCL50 MG PO (12:48)
[2023-12-03] MEDS ORDERED: INTESTINEX680 M1 PO (12:48)
[2023-12-03] MEDS ORDERED: GABAPENTIN300 MG PO (12:48)
== END 2023-12-03 20:41 | disposition home or self-care (01) | DRG 638 ==
LOC: ER 13:27 → MEDI 20:19
PROVIDERS: General Practice; Internal Medicine; Internal Medicine Infectious Disease; Nurse Practitioner Family; ADMIT Internal Medicine; ATTEND Internal Medicine
PROC: B54CZZZ Ultrasonography of Left Lower Extremity Veins (ICD-10-PCS; principal; 2023-11-19)
PROC: 3E0F7GC Introduction of Other Therapeutic Substance into Respiratory Tract, Via Natural or Artificial Opening (ICD-10-PCS; 2023-11-20)
PROC: 02HV33Z Insertion of Infusion Device into Superior Vena Cava, Percutaneous Approach (ICD-10-PCS; 2023-11-25)
PROC: 3E04329 Introduction of Other Anti-infective into Central Vein, Percutaneous Approach (ICD-10-PCS; 2023-11-25)
DX: E11.628 Type 2 diabetes mellitus with other skin complications (principal); K52.1 Toxic gastroenteritis and colitis; L03.116 Cellulitis of left lower limb; L02.416 Cutaneous abscess of left lower limb; R65.10 Systemic inflammatory response syndrome (SIRS) of non-infectious origin without acute organ dysfunction; Z68.44 Body mass index [BMI] 60.0-69.9, adult; L97.528 Non-pressure chronic ulcer of other part of left foot with other specified severity; E11.42 Type 2 diabetes mellitus with diabetic polyneuropathy; E11.610 Type 2 diabetes mellitus with diabetic neuropathic arthropathy; I89.0 Lymphedema, not elsewhere classified; E83.42 Hypomagnesemia; T36.8X5A Adverse effect of other systemic antibiotics, initial encounter; D72.829 Elevated white blood cell count, unspecified; E03.9 Hypothyroidism, unspecified; J45.998 Other asthma; E66.01 Morbid (severe) obesity due to excess calories; B95.2 Enterococcus as the cause of diseases classified elsewhere; B96.5 Pseudomonas (aeruginosa) (mallei) (pseudomallei) as the cause of diseases classified elsewhere; B96.6 Bacteroides fragilis [B. fragilis] as the cause of diseases classified elsewhere; B96.89 Other specified bacterial agents as the cause of diseases classified elsewhere; Y92.230 Patient room in hospital as the place of occurrence of the external cause; Z79.4 Long term (current) use of insulin

== ENCOUNTER 2023-12-08 13:54 | Inpatient (IN) | payer OTHER ==
[~2023-12-08] VITALS: Ht 172.7 cm; Wt 143.8 kg
[~2023-12-08 13:54] MED LIST changes: +CEFUROXIME500 MG PO; +CHOLESTYRAMINE L4 GM PO; +INTESTINEX680 M1 PO; +IPRATROPIU0.2 MG/1 M IH; +PROCARDIA XL90 MG PO; +SERTRALINE HCL50 MG PO; +SIMVASTATIN80 MG PO
[2023-12-08] MEDS ORDERED: FAMOTIDINE/PF 20 MG/2 ML VIAL IV ONE (14:45)
[2023-12-08] MEDS ORDERED: DILTIAZEM HCL 25 MG/5 ML VIAL IV ONE ×2 (14:45→16:08)
[2023-12-08 15:44] LABS: PH,URINE 6.5 (5.0-8.0); URINE APPEARANCE Clear; URINE BILIRRUBIN Negative (NEGATIVE); URINE BLOOD Negative; URINE COLOR Yellow; URINE GLUCOSE Negative (NEGATIVE); URINE KETONE Negative (NEGATIVE); URINE LEUKOCYTE Trace; URINE NITRATE Negative; URINE PROTEIN 30 (NEGATIVE); URINE UROBILINOGEN 0.2 E.U./dl
[2023-12-08 15:47] LABS: URINE BACTERIA 47.8 uL (0.0-1933); URINE EPITHELIAL CELLS 8.1 uL (0.0-38.8); URINE RBC 3.2 uL (0.0-20.8)
[2023-12-08 15:50] LABS: HEMATOCRIT 34.6 % (39.0-48.0); HEMOGLOBIN 11.9 g/dL (13-16.00); MEAN CELL VOLUME 92.3 fL (80.0-100.00); MEAN CORPUSCULAR HEMOGLOBIN 31.8 pg (27.00-32.0); MEAN CORPUSCULAR HGB CONC 34.5 g/dl (32.0-36.0); PLATELET COUNT 316 K/uL (150-450); RED BLOOD COUNT 3.75 M/uL (4.00-6.00); RED CELL DISTRIBUTION WIDTH 14.4 % (11.5-14.5)
[2023-12-08 15:52] LABS: URINE CAST 1.22 uL (0.0-1.40)
[2023-12-08] MEDS ORDERED: FAMOTIDINE/PF 20 MG/2 ML VIAL ONE ×2 (16:07→21:25)
[2023-12-08 16:15] LABS: proBNP 1653 pg/mL (0-56.7)
[2023-12-08 16:16] LABS: TROPONIN I hs < 3.0 PG/ML (42.2-82.3)
[2023-12-08 16:34] LABS: ALBUMIN 3.2 gm/dL (3.4-5.0); BILIRUBIN TOTAL 0.56 mg/dL (0.3-1.2); CREATININE SERUM 1.94 mg/dL (0.70-1.30); GFR 35.01; GLOBULINA 4.1 G/DL (2.4-3.5); POTASSIUM 5.59 mEq/L (3.5-5.1); TOTAL PROTEIN 7.3 gm/dL (6.4-8.2)
[2023-12-08] MEDS ORDERED: FAMOTIDINE/PF 20 MG in 0.9 % SODIUM CHLORIDE 100 ML IV SCH (20:16)
[2023-12-08] MEDS ORDERED: APIXABAN 5 MG TABLET PO SCH (20:17)
[2023-12-08] MEDS ORDERED: NIFEDIPINE 60 MG TAB.SA.OSM PO SCH (20:19)
[2023-12-08] MEDS ORDERED: INSULIN LISPRO 1,000 UNIT/10 ML UNITS SUBCUTANEO PRN (20:30)
[2023-12-08] MEDS ORDERED: DEXTROSE 50 % IN WATER 0.5 G/ML DISP.SYRIN IV PRN (20:30)
[2023-12-08] MEDS ORDERED: 0.9 % SODIUM CHLORIDE 1,000 ML IV SCH (20:30)
[2023-12-08] MEDS ORDERED: GABAPENTIN 300 MG CAPSULE PO SCH (20:49)
[2023-12-08] MEDS ORDERED: CARVEDILOL 3.125 MG TABLET PO SCH (21:00)
[2023-12-08 21:47] LABS: INR 1.13; PARTIAL THROMBOPLASTIN TIME 23.1 SECONDS (22.0-34.0); PROTHROMBIN TIME 11.8 SECONDS (9.0-11.5)
[2023-12-09 15:07] LABS: URINE APPEARANCE Clear; URINE BILIRRUBIN Negative (NEGATIVE); URINE BLOOD Large; URINE COLOR Yellow; URINE GLUCOSE Negative (NEGATIVE); URINE KETONE Negative (NEGATIVE); URINE LEUKOCYTE Small; URINE NITRATE Negative; URINE PROTEIN 30 (NEGATIVE); URINE UROBILINOGEN 0.2 E.U./dl
[2023-12-09 15:08] LABS: URINE BACTERIA 196.5 uL (0.0-1933); URINE EPITHELIAL CELLS 7.4 uL (0.0-38.8); URINE RBC 2748.7 uL (0.0-20.8); URINE WBC 103.5 uL (0.0-23.2)
[2023-12-09 15:53] LABS: URINE CAST 0.45 uL (0.0-1.40)
[2023-12-09 16:22] LABS: EOSINOPHILS,URINE NONE EOS SEEN
[2023-12-09] MEDS ORDERED: LACTOBACILLUS ACIDOPHILUS 1 CAP CAP PO SCH (17:00)
[2023-12-09] MEDS ORDERED: VANCOMYCIN HCL 5 MG/ML REDILUIDO IV SCH (17:00)
[2023-12-09] MEDS ORDERED: CEFEPIME HCL 2,000 MG VIAL IV SCH (17:00)
[2023-12-10 10:55] LABS: HEMATOCRIT 34.4 % (39.0-48.0); HEMOGLOBIN 11.6 g/dL (13-16.00); MEAN CELL VOLUME 93.4 fL (80.0-100.00); MEAN CORPUSCULAR HEMOGLOBIN 31.4 pg (27.00-32.0); MEAN CORPUSCULAR HGB CONC 33.6 g/dl (32.0-36.0); PLATELET COUNT 284 K/uL (150-450); RED BLOOD COUNT 3.69 M/uL (4.00-6.00); RED CELL DISTRIBUTION WIDTH 14.7 % (11.5-14.5)
[2023-12-10 11:38] LABS: ALBUMIN 3.1 gm/dL (3.4-5.0); BILIRUBIN TOTAL 0.85 mg/dL (0.3-1.2); CALCIUM 8.6 mg/dL (8.5-10.1); CREATININE SERUM 1.44 mg/dL (0.70-1.30); GFR 49.39; GLOBULINA 3.8 G/DL (2.4-3.5); MAGNESIUM 1.7 mg/dL (1.8-2.4); POTASSIUM 5.1 mEq/L (3.5-5.1); TOTAL PROTEIN 6.9 gm/dL (6.4-8.2)
[2023-12-10 11:39] LABS: C-REACTIVE PROTEIN 2.05 MG/DL (0.00-0.29)
[2023-12-11] MEDS ORDERED: LEVALBUTEROL HCL 0.63 MG/3 ML SOLUTION IH SCH (13:00)
[2023-12-11] MEDS ORDERED: LACTULOSE 20 G/30 ML BLIST.PACK PO SCH (17:00)
[2023-12-11] MEDS ORDERED: FAMOtidine 20 MG TABLET PO SCH (21:00)
[2023-12-12 10:00] LABS: HEMOGLOBIN 11.9 g/dL (13-16.00); MEAN CELL VOLUME 91.6 fL (80.0-100.00); MEAN CORPUSCULAR HGB CONC 33.9 g/dl (32.0-36.0); PLATELET COUNT 323 K/uL (150-450); RED BLOOD COUNT 3.82 M/uL (4.00-6.00); RED CELL DISTRIBUTION WIDTH 14.3 % (11.5-14.5)
[2023-12-12 10:25] LABS: BILIRUBIN TOTAL 0.81 mg/dL (0.3-1.2); CALCIUM 8.7 mg/dL (8.5-10.1); CREATININE SERUM 1.1 mg/dL (0.70-1.30); GFR 67.39; GLOBULINA 3.8 G/DL (2.4-3.5); MAGNESIUM 1.5 mg/dL (1.8-2.4); PHOSPHOROUS 3.2 mg/dL (2.5-4.9); POTASSIUM 4.89 mEq/L (3.5-5.1); TOTAL PROTEIN 6.8 gm/dL (6.4-8.2)
[2023-12-12] MEDS ORDERED: MAGNESIUM SULFATE 1,000 MG in 0.9 % SODIUM CHLORIDE 50 ML IV ONE (23:15)
[2023-12-13 08:51] LABS: ALBUMIN 2.9 gm/dL (3.4-5.0); CALCIUM 8.7 mg/dL (8.5-10.1); CREATININE SERUM 1.11 mg/dL (0.70-1.30); GFR 66.69; MAGNESIUM 1.7 mg/dL (1.8-2.4); PHOSPHOROUS 2.8 mg/dL (2.5-4.9); POTASSIUM 4.86 mEq/L (3.5-5.1)
[2023-12-13] MEDS ORDERED: MAGNESIUM SULFATE IN WATER 2 GM/50 ML PIGGYBAG IV NR (10:00)
[2023-12-14] MEDS ORDERED: LEVALBUTEROL HCL 0.63 MG/3 ML SOLUTION IH SCH (01:00)
[2023-12-14] MEDS ORDERED: LEVALBUTEROL HCL 0.63 MG/3 ML SOLUTION IH ONE (08:26)
[2023-12-14 08:33] LABS: ALBUMIN 2.8 gm/dL (3.4-5.0); BILIRUBIN TOTAL 0.4 mg/dL (0.3-1.2); CALCIUM 8.6 mg/dL (8.5-10.1); CREATININE SERUM 1.11 mg/dL (0.70-1.30); GFR 66.69; GLOBULINA 3.7 G/DL (2.4-3.5); POTASSIUM 4.54 mEq/L (3.5-5.1); TOTAL PROTEIN 6.5 gm/dL (6.4-8.2)
[2023-12-16] MEDS ORDERED: VANCOMYCIN HCL 5 MG/ML REDILUIDO IV SCH (17:00)
[2023-12-17] MEDS ORDERED: LEVALBUTEROL HCL 0.63 MG/3 ML SOLUTION IH SCH
[2023-12-17 06:43] LABS: HEMATOCRIT 33.4 % (39.0-48.0); HEMOGLOBIN 11.2 g/dL (13-16.00); MEAN CELL VOLUME 91.6 fL (80.0-100.00); MEAN CORPUSCULAR HEMOGLOBIN 30.7 pg (27.00-32.0); MEAN CORPUSCULAR HGB CONC 33.5 g/dl (32.0-36.0); PLATELET COUNT 298 K/uL (150-450); RED BLOOD COUNT 3.65 M/uL (4.00-6.00); RED CELL DISTRIBUTION WIDTH 14.4 % (11.5-14.5)
[2023-12-17 07:15] LABS: BILIRUBIN TOTAL 0.69 mg/dL (0.3-1.2); CALCIUM 9.2 mg/dL (8.5-10.1); CREATININE SERUM 0.94 mg/dL (0.70-1.30); GFR 80.79; GLOBULINA 3.4 G/DL (2.4-3.5); MAGNESIUM 1.7 mg/dL (1.8-2.4); PHOSPHOROUS 2.8 mg/dL (2.5-4.9); POTASSIUM 4.5 mEq/L (3.5-5.1); TOTAL PROTEIN 6.4 gm/dL (6.4-8.2)
[2023-12-17] MEDS ORDERED: MAGNESIUM SULFATE 1,000 MG in 0.9 % SODIUM CHLORIDE 50 ML IV ONE (20:00)
[2023-12-17] MEDS ORDERED: MAGNESIUM SULFATE IN WATER 2 GM/50 ML PIGGYBAG IV ONE (20:48)
[2023-12-18] MEDS ORDERED: MINERAL OIL 30 ML BLIST.PACK PO NR (13:45)
[2023-12-18] MEDS ORDERED: MAGNESIUM HYDROXIDE 30 ML BLIST.PACK PO NR (13:45)
[2023-12-18] MEDS ORDERED: LACTULOSE 20 G/30 ML BLIST.PACK PO NR (13:45)
[2023-12-19 06:16] LABS: HEMATOCRIT 33.6 % (39.0-48.0); MEAN CELL VOLUME 92.8 fL (80.0-100.00); MEAN CORPUSCULAR HEMOGLOBIN 30.5 pg (27.00-32.0); MEAN CORPUSCULAR HGB CONC 32.8 g/dl (32.0-36.0); PLATELET COUNT 305 K/uL (150-450); RED BLOOD COUNT 3.62 M/uL (4.00-6.00); RED CELL DISTRIBUTION WIDTH 14.3 % (11.5-14.5)
[2023-12-19 06:48] LABS: BILIRUBIN TOTAL 0.7 mg/dL (0.3-1.2); CALCIUM 9.1 mg/dL (8.5-10.1); CREATININE SERUM 0.94 mg/dL (0.70-1.30); GFR 80.79; GLOBULINA 3.7 G/DL (2.4-3.5); MAGNESIUM 1.6 mg/dL (1.8-2.4); PHOSPHOROUS 2.9 mg/dL (2.5-4.9); POTASSIUM 4.42 mEq/L (3.5-5.1); TOTAL PROTEIN 6.7 gm/dL (6.4-8.2)
[2023-12-19] MEDS ORDERED: MAGNESIUM SULFATE/D5W 100 ML IV ONE (09:45)
[2023-12-19] MEDS ORDERED: LACTULOSE 20 G/30 ML BLIST.PACK PO SCH (10:00)
[2023-12-19] MEDS ORDERED: IPRATROPIUM BROMIDE 0.5 MG/2.5 ML AMPUL.NEB IH SCH (17:00)
[2023-12-20] MEDS ORDERED: IPRATROPIU0.2 MG/1 M IH (17:50)
== END 2023-12-20 21:44 | disposition home or self-care (01) | DRG 309 ==
LOC: ER 13:54 → MEDJ 20:24
PROVIDERS: General Practice; Internal Medicine; Internal Medicine Infectious Disease; Internal Medicine Nephrology; Nurse Practitioner Family; ADMIT Internal Medicine; ATTEND Internal Medicine
PROC: 4A12X4Z Monitoring of Cardiac Electrical Activity, External Approach (ICD-10-PCS; principal; 2023-12-08)
PROC: B246ZZZ Ultrasonography of Right and Left Heart (ICD-10-PCS; 2023-12-09)
PROC: 3E0F7GC Introduction of Other Therapeutic Substance into Respiratory Tract, Via Natural or Artificial Opening (ICD-10-PCS; 2023-12-11)
DX: I48.20 Chronic atrial fibrillation, unspecified (principal); J45.901 Unspecified asthma with (acute) exacerbation; L03.116 Cellulitis of left lower limb; N17.9 Acute kidney failure, unspecified; J90 Pleural effusion, not elsewhere classified; I50.9 Heart failure, unspecified; K59.00 Constipation, unspecified; I13.10 Hypertensive heart and chronic kidney disease without heart failure, with stage 1 through stage 4 chronic kidney disease, or unspecified chronic kidney disease; E11.22 Type 2 diabetes mellitus with diabetic chronic kidney disease; E11.42 Type 2 diabetes mellitus with diabetic polyneuropathy; N18.9 Chronic kidney disease, unspecified; E03.9 Hypothyroidism, unspecified; E83.42 Hypomagnesemia; H54.8 Legal blindness, as defined in USA; Z74.01 Bed confinement status

== ENCOUNTER 2023-12-26 05:09 | Inpatient (IN) | payer OTHER ==
[~2023-12-26] VITALS: Ht 172.7 cm; Wt 127.0 kg
[2023-12-26] MEDS ORDERED: DILTIAZEM HCL 125MG/25ML VIAL IV STA (05:36)
[2023-12-26 06:37] LABS: URINE APPEARANCE Clear; URINE BILIRRUBIN Negative (NEGATIVE); URINE BLOOD Negative; URINE COLOR Yellow; URINE GLUCOSE Negative (NEGATIVE); URINE KETONE Negative (NEGATIVE); URINE LEUKOCYTE Moderate; URINE NITRATE Negative; URINE PROTEIN 30 (NEGATIVE)
[2023-12-26 06:41] LABS: URINE BACTERIA 70.5 uL (0.0-1933); URINE EPITHELIAL CELLS 14.6 uL (0.0-38.8); URINE RBC 4.1 uL (0.0-20.8); URINE WBC 127.2 uL (0.0-23.2)
[2023-12-26 06:59] LABS: HEMATOCRIT 33.6 % (39.0-48.0); HEMOGLOBIN 11.3 g/dL (13-16.00); MEAN CELL VOLUME 91.8 fL (80.0-100.00); MEAN CORPUSCULAR HGB CONC 33.8 g/dl (32.0-36.0); PLATELET COUNT 330 K/uL (150-450); RED BLOOD COUNT 3.66 M/uL (4.00-6.00); RED CELL DISTRIBUTION WIDTH 14.1 % (11.5-14.5)
[2023-12-26 07:04] LABS: INR 1.21; PARTIAL THROMBOPLASTIN TIME 35.9 SECONDS (22.0-34.0)
[2023-12-26 07:08] LABS: ALBUMIN 3.5 gm/dL (3.4-5.0); BILIRUBIN TOTAL 1.04 mg/dL (0.3-1.2); CREATININE SERUM 1.49 mg/dL (0.70-1.30); GFR 47.48; GLOBULINA 4.2 G/DL (2.4-3.5); POTASSIUM 3.75 mEq/L (3.5-5.1); TOTAL PROTEIN 7.7 gm/dL (6.4-8.2)
[2023-12-26 07:09] LABS: URINE CAST 0.61 uL (0.0-1.40)
[2023-12-26] MEDS ORDERED: IPRATROPIUM BROMIDE 0.5 MG/2.5 ML AMPUL.NEB IH SCH (19:15)
[2023-12-26] MEDS ORDERED: CEFTRIAXONE SODIUM 2,000 MG in 0.9 % SODIUM CHLORIDE 100 ML IV SCH (19:20)
[2023-12-26] MEDS ORDERED: FUROsemide 20 MG/2 ML VIAL IV SCH (19:22)
[2023-12-26] MEDS ORDERED: DEXTROSE 50 % IN WATER 0.5 G/ML DISP.SYRIN IV PRN ×2 (19:30→19:45)
[2023-12-26] MEDS ORDERED: INSULIN LISPRO 1,000 UNIT/10 ML UNITS SUBCUTANEO PRN ×2 (19:30→19:45)
[2023-12-26] MEDS ORDERED: ACETAMINOPHEN 500 MG GEL..CAP PO PRN (19:30)
[2023-12-26] MEDS ORDERED: CEFTRIAXONE SODIUM 2,000 MG VIAL ONE (20:21)
[2023-12-26] MEDS ORDERED: AMIODARONE IN DEXTROSE,ISO-OSM 360 MG/200 ML IV.SOLN IV ONE (20:21)
[2023-12-26] MEDS ORDERED: FUROsemide 20 MG/2 ML VIAL ONE (20:21)
[2023-12-26 20:37] LABS: INR 1.17; PARTIAL THROMBOPLASTIN TIME 33.3 SECONDS (22.0-34.0); PROTHROMBIN TIME 12.6 SECONDS (9.0-11.5)
[2023-12-26 21:20] VITALS: BP 126/73; O2SAT 100
[2023-12-26 22:05] VITALS: BP 115/69; O2SAT 100
[2023-12-26 23:52] VITALS: BP 126/79
[2023-12-27] VITALS (22 sets, daily range): BP systolic 97–132; BP diastolic 61–85; O2SAT 96–100
[2023-12-27] MEDS ORDERED: APIXABAN 5 MG TABLET PO ONE (02:05)
[2023-12-27] MEDS ORDERED: LEVOTHYROXINE SODIUM 25 MCG TABLET PO ONE (02:05)
[2023-12-27] MEDS ORDERED: APIXABAN 5 MG TABLET PO SCH (05:00)
[2023-12-27] MEDS ORDERED: LEVOTHYROXINE SODIUM 25 MCG TABLET PO SCH (06:00)
[2023-12-27] MEDS ORDERED: SERTRALINE HCL 50 MG TABLET PO SCH (09:00)
[2023-12-27] MEDS ORDERED: SIMVASTATIN 20 MG TABLET PO SCH (17:00)
[2023-12-27] MEDS ORDERED: AMIODARONE HCL 200 MG TABLET PO SCH (17:00)
[2023-12-27] MEDS ORDERED: CLOTRIMAZOLE 30 GM TUBE TOP SCH (17:04)
[2023-12-28 04:00] VITALS: BP 108/75
[2023-12-28 07:37] LABS: HEMATOCRIT 35.4 % (39.0-48.0); HEMOGLOBIN 11.8 g/dL (13-16.00); MEAN CELL VOLUME 91.4 fL (80.0-100.00); MEAN CORPUSCULAR HEMOGLOBIN 30.5 pg (27.00-32.0); MEAN CORPUSCULAR HGB CONC 33.3 g/dl (32.0-36.0); PLATELET COUNT 313 K/uL (150-450); RED BLOOD COUNT 3.87 M/uL (4.00-6.00); RED CELL DISTRIBUTION WIDTH 14.5 % (11.5-14.5)
[2023-12-28 08:00] VITALS: BP 89/81; O2SAT 98
[2023-12-28 08:15] LABS: ALBUMIN 3.2 gm/dL (3.4-5.0); BILIRUBIN TOTAL 0.48 mg/dL (0.3-1.2); CALCIUM 9.2 mg/dL (8.5-10.1); CREATININE SERUM 1.24 mg/dL (0.70-1.30); GFR 58.69; GLOBULINA 3.9 G/DL (2.4-3.5); MAGNESIUM 1.5 mg/dL (1.8-2.4); PHOSPHOROUS 3.9 mg/dL (2.5-4.9); POTASSIUM 4.29 mEq/L (3.5-5.1); TOTAL PROTEIN 7.1 gm/dL (6.4-8.2)
[2023-12-28 08:30] LABS: C-REACTIVE PROTEIN 1.54 MG/DL (0.00-0.29)
[2023-12-28] MEDS ORDERED: MAGNESIUM SULFATE IN WATER 50 ML IV NR (09:00)
[2023-12-28 12:00] VITALS: BP 120/77; O2SAT 100
[2023-12-28] MEDS ORDERED: POLYETHYLENE GLYCOL 3350 17 GM BLIST.PACK PO SCH (12:00)
[2023-12-28] MEDS ORDERED: FLUCONAZOLE IN NACL,ISO-OSM 400 MG/200 ML PIGGYBAG IV NR (14:00)
[2023-12-28 16:12] VITALS: BP 107/64; O2SAT 100
[2023-12-28] MEDS ORDERED: FUROsemide 40 MG TABLET PO NR (16:45)
[2023-12-28] MEDS ORDERED: BUDESONIDE 0.5 MG/2 ML AMPUL.NEB IH SCH (17:00)
[2023-12-28] MEDS ORDERED: MAGNESIUM SULFATE IN WATER 50 ML IV SCH (18:00)
[2023-12-28 20:00] VITALS: BP 121/88; O2SAT 100
[2023-12-28 23:26] VITALS: BP 89/74
[2023-12-29 04:00] VITALS: BP 105/75; O2SAT 96
[2023-12-29 07:57] VITALS: BP 109/82; O2SAT 100
[2023-12-29] MEDS ORDERED: FUROsemide 40 MG TABLET PO SCH (09:00)
[2023-12-29] MEDS ORDERED: CHLORHEXIDINE GLUCONATE 120 ML BOTTLE TOP ONE (10:24)
[2023-12-29 12:00] VITALS: BP 120/79; O2SAT 100
[2023-12-29] MEDS ORDERED: FLUCONAZOLE IN NACL,ISO-OSM 100 ML IV SCH (12:00)
[2023-12-29 15:34] VITALS: BP 106/67; O2SAT 100
[2023-12-29 20:00] VITALS: BP 131/92; O2SAT 100
[2023-12-29] MEDS ORDERED: SERTRALINE HCL 50 MG TABLET PO SCH (21:00)
[2023-12-29 23:02] VITALS: BP 119/86; O2SAT 100
[2023-12-30 04:00] VITALS: BP 125/77; O2SAT 100
[2023-12-30 07:02] LABS: CALCIUM 8.9 mg/dL (8.5-10.1); CREATININE SERUM 1.46 mg/dL (0.70-1.30); GFR 48.61; POTASSIUM 4.34 mEq/L (3.5-5.1)
[2023-12-30 07:32] VITALS: BP 125/77; O2SAT 98
[2023-12-30 12:00] VITALS: BP 102/76; O2SAT 98
[2023-12-30 16:00] VITALS: BP 107/91; O2SAT 99
[2023-12-31 02:01] VITALS: BP 159/84
[2023-12-31 09:42] VITALS: BP 107/62; O2SAT 96
[2023-12-31] MEDS ORDERED: FLUCONAZOLE 200 MG TABLET PO SCH (12:00)
[2023-12-31 19:07] VITALS: BP 143/85
[2024-01-01 02:54] VITALS: BP 142/89; O2SAT 99
[2024-01-01 08:32] LABS: HEMATOCRIT 35.5 % (39.0-48.0); HEMOGLOBIN 11.5 g/dL (13-16.00); MEAN CELL VOLUME 92.5 fL (80.0-100.00); MEAN CORPUSCULAR HGB CONC 32.4 g/dl (32.0-36.0); PLATELET COUNT 284 K/uL (150-450); RED BLOOD COUNT 3.84 M/uL (4.00-6.00)
[2024-01-01 09:09] VITALS: BP 112/72
[2024-01-01 09:34] LABS: ALBUMIN 3.3 gm/dL (3.4-5.0); BILIRUBIN TOTAL 0.6 mg/dL (0.3-1.2); CALCIUM 9.1 mg/dL (8.5-10.1); CREATININE SERUM 1.39 mg/dL (0.70-1.30); GFR 51.44; GLOBULINA 3.6 G/DL (2.4-3.5); MAGNESIUM 1.9 mg/dL (1.8-2.4); PHOSPHOROUS 3.2 mg/dL (2.5-4.9); POTASSIUM 4.25 mEq/L (3.5-5.1); TOTAL PROTEIN 6.9 gm/dL (6.4-8.2)
[2024-01-01 17:50] VITALS: BP 137/89
[2024-01-02 01:25] VITALS: BP 137/85; O2SAT 100
[2024-01-02 05:50] VITALS: BP 125/72; O2SAT 98
[2024-01-02 09:09] VITALS: BP 143/82
[2024-01-02] MEDS ORDERED: KETOROLAC TROMETHAMINE 30 MG VIAL IV STA (14:52)
[2024-01-02 17:18] VITALS: BP 172/94
[2024-01-02] MEDS ORDERED: ELIQUIS5 MG PO ×2 (17:54→20:26)
[2024-01-02] MEDS ORDERED: AMIODARONE HCL200 MG PO ×2 (17:55→20:26)
[2024-01-02] MEDS ORDERED: SIMVASTATIN20 MG PO ×2 (17:55→20:26)
[2024-01-02] MEDS ORDERED: SERTRALINE HCL50 MG PO ×2 (17:55→20:26)
[2024-01-02] MEDS ORDERED: BUDESONIDE0.5 MG/2 M IH ×2 (17:56→20:26)
[2024-01-02] MEDS ORDERED: FUROSEMIDE40 MG PO ×2 (17:56→20:26)
[2024-01-02] MEDS ORDERED: LEVOTHYROXINE25 MCG PO ×2 (17:57→20:26)
[2024-01-02] MEDS ORDERED: NIFEDIPINE ER30 M1 PO ×2 (17:59→20:26)
== END 2024-01-02 22:09 | disposition home or self-care (01) | DRG 292 ==
LOC: ER 05:09 → ICU-2 20:13 → ICU 20:13 → MEDJ 12-30 18:36
PROVIDERS: General Practice; Internal Medicine Endocrinology, Diabetes & Metabolism; Internal Medicine Infectious Disease; ADMIT Internal Medicine; ATTEND Internal Medicine
PROC: B246ZZZ Ultrasonography of Right and Left Heart (ICD-10-PCS; principal; 2023-12-26)
PROC: 3E0F7GC Introduction of Other Therapeutic Substance into Respiratory Tract, Via Natural or Artificial Opening (ICD-10-PCS; 2023-12-27)
PROC: 02HV33Z Insertion of Infusion Device into Superior Vena Cava, Percutaneous Approach (ICD-10-PCS; 2023-12-28)
DX: I11.0 Hypertensive heart disease with heart failure (principal); I48.20 Chronic atrial fibrillation, unspecified; N17.8 Other acute kidney failure; N39.0 Urinary tract infection, site not specified; I50.9 Heart failure, unspecified; E03.8 Other specified hypothyroidism; E11.65 Type 2 diabetes mellitus with hyperglycemia; D72.828 Other elevated white blood cell count; F41.8 Other specified anxiety disorders; R06.02 Shortness of breath; E11.22 Type 2 diabetes mellitus with diabetic chronic kidney disease; N18.9 Chronic kidney disease, unspecified; Z79.4 Long term (current) use of insulin

== ENCOUNTER 2024-01-03 08:18 | Emergency (ER) | payer OTHER ==
[~2024-01-03] VITALS: Ht 175.3 cm; Wt 117.9 kg
[~2024-01-03 08:18] MED LIST changes: +AMIODARONE HCL200 MG PO; +BUDESONIDE0.5 MG/2 M IH; +FUROSEMIDE40 MG PO; +NIFEDIPINE ER30 M1 PO; +SIMVASTATIN20 MG PO
[2024-01-03] MEDS ORDERED: 0.9 % SODIUM CHLORIDE 1,000 ML IV SCH (08:45)
[2024-01-03 09:34] LABS: HEMATOCRIT 35.6 % (39.0-48.0); HEMOGLOBIN 12.1 g/dL (13-16.00); MEAN CELL VOLUME 91.9 fL (80.0-100.00); MEAN CORPUSCULAR HEMOGLOBIN 31.1 pg (27.00-32.0); MEAN CORPUSCULAR HGB CONC 33.9 g/dl (32.0-36.0); PLATELET COUNT 348 K/uL (150-450); RED BLOOD COUNT 3.88 M/uL (4.00-6.00); RED CELL DISTRIBUTION WIDTH 14.5 % (11.5-14.5)
[2024-01-03 10:01] LABS: URINE APPEARANCE Cloudy; URINE BILIRRUBIN Negative (NEGATIVE); URINE BLOOD Negative; URINE COLOR Dark Yellow; URINE GLUCOSE Negative (NEGATIVE); URINE KETONE Trace (NEGATIVE); URINE LEUKOCYTE Small; URINE NITRATE Negative; URINE UROBILINOGEN 0.2 E.U./dl
[2024-01-03 10:04] LABS: URINE BACTERIA 100.7 uL (0.0-1933); URINE CAST 17.25 uL (0.0-1.40); URINE EPITHELIAL CELLS 46.8 uL (0.0-38.8); URINE RBC 11.6 uL (0.0-20.8); URINE WBC 56.5 uL (0.0-23.2)
[2024-01-03 11:02] LABS: URINE PROTEIN 100 (NEGATIVE)
[2024-01-03 11:04] LABS: URINE CRYSTALS MODERATE /HPF
[2024-01-03 11:05] LABS: URINE MUCUS MODERATE
[2024-01-03 11:30] LABS: CALCIUM 9.8 mg/dL (8.5-10.1); CREATININE SERUM 2.14 mg/dL (0.70-1.30); GFR 31.27; POTASSIUM 4.26 mEq/L (3.5-5.1)
[2024-01-03] MEDS ORDERED: CEFTRIAXONE SODIUM 1,000 MG VIAL IV ONE (13:30)
[2024-01-03] MEDS ORDERED: CEFTRIAXONE SODIUM 1,000 MG VIAL ONE (14:04)
[2024-01-03] MEDS ORDERED: POLYETHYLENE GLYCOL 3350 17 GM BLIST.PACK PO ONE (15:30)
[2024-01-03] MEDS ORDERED: FAMOTIDINE/PF 20 MG/2 ML VIAL ONE (18:56)
[2024-01-03] MEDS ORDERED: FAMOTIDINE/PF 20 MG/2 ML VIAL IV ONE (19:00)
== END 2024-01-03 19:37 | disposition home or self-care (01) ==
LOC: ER 08:18
PROVIDERS: Emergency Medicine
DX: N39.0 Urinary tract infection, site not specified (principal); R33.8 Other retention of urine; I48.91 Unspecified atrial fibrillation; Z91.041 Radiographic dye allergy status; Z88.2 Allergy status to sulfonamides; I49.8 Other specified cardiac arrhythmias; E78.00 Pure hypercholesterolemia, unspecified; I10 Essential (primary) hypertension; F32.89 Other specified depressive episodes; E11.9 Type 2 diabetes mellitus without complications; Z79.4 Long term (current) use of insulin; Z20.822 Contact with and (suspected) exposure to COVID-19
CPT/HCPCS: 36415; 51702; 96365; J0696

== ENCOUNTER 2024-01-05 11:58 | Emergency (ER) | payer OTHER ==
[~2024-01-05] VITALS: Ht 172.7 cm; Wt 117.9 kg
[2024-01-05 14:34] LABS: HEMATOCRIT 33.3 % (39.0-48.0); HEMOGLOBIN 11.1 g/dL (13-16.00); MEAN CELL VOLUME 91.2 fL (80.0-100.00); MEAN CORPUSCULAR HEMOGLOBIN 30.3 pg (27.00-32.0); MEAN CORPUSCULAR HGB CONC 33.3 g/dl (32.0-36.0); PLATELET COUNT 305 K/uL (150-450); RED BLOOD COUNT 3.66 M/uL (4.00-6.00); RED CELL DISTRIBUTION WIDTH 14.3 % (11.5-14.5)
[2024-01-05 14:58] LABS: CALCIUM 9.4 mg/dL (8.5-10.1); CREATININE SERUM 3.02 mg/dL (0.70-1.30); GFR 21.01; POTASSIUM 4.09 mEq/L (3.5-5.1)
[2024-01-05 15:10] LABS: URINE APPEARANCE Clear; URINE BILIRRUBIN Small (NEGATIVE); URINE BLOOD Negative; URINE COLOR Dark Yellow; URINE GLUCOSE Negative (NEGATIVE); URINE KETONE Trace (NEGATIVE); URINE LEUKOCYTE Trace; URINE NITRATE Negative
[2024-01-05 15:13] LABS: URINE CAST 14.96 uL (0.0-1.40); URINE EPITHELIAL CELLS 10.5 uL (0.0-38.8); URINE RBC 10.6 uL (0.0-20.8); URINE WBC 32.3 uL (0.0-23.2)
[2024-01-05 15:57] LABS: URINE PROTEIN 100 (NEGATIVE)
== END 2024-01-05 19:44 | disposition home or self-care (01) ==
LOC: ER 11:58
PROVIDERS: General Practice
DX: R33.8 Other retention of urine (principal); R10.9 Unspecified abdominal pain; I10 Essential (primary) hypertension; E11.9 Type 2 diabetes mellitus without complications; Z79.4 Long term (current) use of insulin; Z88.1 Allergy status to other antibiotic agents; Z88.2 Allergy status to sulfonamides; Z91.041 Radiographic dye allergy status

== ENCOUNTER 2024-01-12 10:08 | Emergency (ER) | payer OTHER ==
[~2024-01-12] VITALS: Ht 172.7 cm; Wt 117.9 kg
[2024-01-12] MEDS ORDERED: 0.9 % SODIUM CHLORIDE 1,000 ML IV ONE (10:45)
[2024-01-12] MEDS ORDERED: METHYLPREDNISOLONE SOD SUCC 40 MG VIAL IV ONE (10:45)
[2024-01-12] MEDS ORDERED: DIPHENHYDRAMINE HCL 50 MG/ML VIAL 1ML IV ONE (10:45)
[2024-01-12] MEDS ORDERED: FAMOtidine 10 MG/ML (4ML VIAL) IV ONE (10:45)
[2024-01-12] MEDS ORDERED: METHYLPREDNISOLONE SOD SUCC 40 MG VIAL ONE (11:01)
[2024-01-12] MEDS ORDERED: DIPHENHYDRAMINE HCL 50 MG/ML VIAL 1ML ONE (11:01)
[2024-01-12] MEDS ORDERED: FAMOTIDINE/PF 20 MG/2 ML VIAL ONE (11:01)
[2024-01-12] MEDS ORDERED: BARIUM SULFATE 450 ML ORAL.SUSP PO ONE (11:05)
[2024-01-12 11:42] LABS: HEMATOCRIT 33.3 % (39.0-48.0); HEMOGLOBIN 11.1 g/dL (13-16.00); MEAN CELL VOLUME 92.2 fL (80.0-100.00); MEAN CORPUSCULAR HEMOGLOBIN 30.7 pg (27.00-32.0); MEAN CORPUSCULAR HGB CONC 33.4 g/dl (32.0-36.0); PLATELET COUNT 306 K/uL (150-450); RED BLOOD COUNT 3.61 M/uL (4.00-6.00); RED CELL DISTRIBUTION WIDTH 14.4 % (11.5-14.5)
[2024-01-12 11:48] LABS: PH,URINE 5.5 (5.0-8.0); URINE APPEARANCE Clear; URINE BILIRRUBIN Negative (NEGATIVE); URINE BLOOD NHT; URINE COLOR Yellow; URINE GLUCOSE Negative (NEGATIVE); URINE KETONE Negative (NEGATIVE); URINE LEUKOCYTE Trace; URINE NITRATE Negative; URINE PROTEIN Trace (NEGATIVE); URINE UROBILINOGEN 0.2 E.U./dl
[2024-01-12 11:53] LABS: URINE BACTERIA 120.9 uL (0.0-1933); URINE EPITHELIAL CELLS 7.4 uL (0.0-38.8); URINE WBC 13.1 uL (0.0-23.2)
[2024-01-12 11:57] LABS: URINE CAST 1.37 uL (0.0-1.40)
[2024-01-12 12:27] LABS: ALBUMIN 3.4 gm/dL (3.4-5.0); BILIRUBIN TOTAL 0.82 mg/dL (0.3-1.2); CALCIUM 9.3 mg/dL (8.5-10.1); CREATININE SERUM 2.06 mg/dL (0.70-1.30); GFR 32.67; GLOBULINA 3.9 G/DL (2.4-3.5); POTASSIUM 5.42 mEq/L (3.5-5.1); TOTAL PROTEIN 7.3 gm/dL (6.4-8.2)
[2024-01-13] MEDS ORDERED: MIRALAX510 GM PO (03:04)
== END 2024-01-13 11:01 | disposition home or self-care (01) ==
LOC: ER 10:08
PROVIDERS: General Practice
DX: K59.00 Constipation, unspecified (principal); I10 Essential (primary) hypertension; E11.9 Type 2 diabetes mellitus without complications; Z79.4 Long term (current) use of insulin; Z88.1 Allergy status to other antibiotic agents; Z88.2 Allergy status to sulfonamides; Z91.041 Radiographic dye allergy status
CPT/HCPCS: 36415; 74177; 96365; 99284; J1200; J3490 ×2; J7030; Q9965

== ENCOUNTER 2024-02-03 12:52 | Inpatient (IN) | payer OTHER ==
[~2024-02-03] VITALS: Ht 167.6 cm; Wt 142.9 kg
[~2024-02-03 12:52] MED LIST changes: +MIRALAX510 GM PO
[2024-02-03 15:59] LABS: HEMATOCRIT 31.8 % (39.0-48.0); HEMOGLOBIN 10.5 g/dL (13-16.00); MEAN CELL VOLUME 92.2 fL (80.0-100.00); MEAN CORPUSCULAR HEMOGLOBIN 30.6 pg (27.00-32.0); MEAN CORPUSCULAR HGB CONC 33.2 g/dl (32.0-36.0); PLATELET COUNT 306 K/uL (150-450); RED BLOOD COUNT 3.44 M/uL (4.00-6.00); RED CELL DISTRIBUTION WIDTH 14.7 % (11.5-14.5)
[2024-02-03 16:16] LABS: INR 1.14; PARTIAL THROMBOPLASTIN TIME 34.4 SECONDS (22.0-34.0); PROTHROMBIN TIME 12.3 SECONDS (9.0-11.5)
[2024-02-03 16:23] LABS: ALBUMIN 3.1 gm/dL (3.4-5.0); BILIRUBIN TOTAL 0.54 mg/dL (0.3-1.2); CALCIUM 8.8 mg/dL (8.5-10.1); CREATININE SERUM 1.16 mg/dL (0.70-1.30); GFR 63.19; GLOBULINA 4.1 G/DL (2.4-3.5); POTASSIUM 4.42 mEq/L (3.5-5.1); TOTAL PROTEIN 7.2 gm/dL (6.4-8.2)
[2024-02-03 16:29] LABS: PH,URINE 6.5 (5.0-8.0); URINE APPEARANCE Clear; URINE BILIRRUBIN Negative (NEGATIVE); URINE BLOOD Negative; URINE COLOR Yellow; URINE GLUCOSE Negative (NEGATIVE); URINE KETONE Negative (NEGATIVE); URINE LEUKOCYTE Negative; URINE NITRATE Negative; URINE PROTEIN Negative (NEGATIVE); URINE UROBILINOGEN 0.2 E.U./dl
[2024-02-03 16:33] LABS: URINE BACTERIA 308.6 uL (0.0-1933); URINE EPITHELIAL CELLS 0.9 uL (0.0-38.8); URINE RBC 0.4 uL (0.0-20.8); URINE WBC 0.4 uL (0.0-23.2)
[2024-02-03 18:44] VITALS: BP 107/76
[2024-02-03] MEDS ORDERED: NITROGLYCERIN IN 5 % DEXTROSE 50 MG/250 ML BOTTLE IV SCH ×2 (19:15→20:30)
[2024-02-03] MEDS ORDERED: FUROsemide 20 MG/2 ML VIAL IV ONE (19:15)
[2024-02-03] MEDS ORDERED: IPRATROPIUM BROMIDE 0.5 MG/2.5 ML AMPUL.NEB IH SCH (20:39)
[2024-02-03] MEDS ORDERED: ACETAMINOPHEN 500 MG GEL..CAP PO PRN (20:45)
[2024-02-03] MEDS ORDERED: AMIODARONE HCL 50 MG/ML AMPUL IV ONE (20:45)
[2024-02-03] MEDS ORDERED: APIXABAN 5 MG TABLET PO SCH (21:00)
[2024-02-03] MEDS ORDERED: CEFEPIME HCL 2,000 MG in 0.9 % SODIUM CHLORIDE 100 ML IV SCH (21:00)
[2024-02-03 23:49] VITALS: BP 133/82; O2SAT 100
[2024-02-04 03:54] VITALS: BP 135/77; O2SAT 100
[2024-02-04] MEDS ORDERED: LEVOTHYROXINE SODIUM 25 MCG TABLET PO SCH (06:00)
[2024-02-04 07:00] VITALS: BP 118/66; O2SAT 99
[2024-02-04] MEDS ORDERED: ATORVASTATIN CALCIUM 20 MG TABLET PO SCH (09:00)
[2024-02-04] MEDS ORDERED: SERTRALINE HCL 50 MG TABLET PO SCH (09:00)
[2024-02-04] MEDS ORDERED: TAMSULOSIN HCL 0.4 MG CAP PO SCH (09:00)
[2024-02-04] MEDS ORDERED: METOPROLOL TARTRATE 25 MG TABLET PO SCH (11:16)
[2024-02-04 11:18] VITALS: BP 103/76; O2SAT 98
[2024-02-04 15:20] VITALS: BP 146/85; O2SAT 97
[2024-02-04 15:58] VITALS: O2SAT 97
[2024-02-04] MEDS ORDERED: VANCOMYCIN HCL 5 MG/ML REDILUIDO IV SCH (17:00)
[2024-02-04 20:02] VITALS: O2SAT 98
[2024-02-05 00:50] VITALS: BP 137/83; O2SAT 99
[2024-02-05 01:32] VITALS: O2SAT 90
[2024-02-05 08:17] VITALS: BP 153/92; O2SAT 97
[2024-02-05] MEDS ORDERED: AMIODARONE HCL 200 MG TABLET PO SCH (09:00)
[2024-02-05] MEDS ORDERED: VANCOMYCIN HCL 5 MG/ML REDILUIDO IV SCH (17:00)
[2024-02-05 17:16] VITALS: BP 129/77; O2SAT 96
[2024-02-05 18:00] VITALS: O2SAT 94
[2024-02-05 21:29] VITALS: O2SAT 97
[2024-02-06] VITALS (7 sets, daily range): BP systolic 145–160; BP diastolic 82–88; O2SAT 90–99
[2024-02-06 07:03] LABS: HEMATOCRIT 29.5 % (39.0-48.0); HEMOGLOBIN 9.8 g/dL (13-16.00); MEAN CORPUSCULAR HEMOGLOBIN 30.9 pg (27.00-32.0); MEAN CORPUSCULAR HGB CONC 33.3 g/dl (32.0-36.0); PLATELET COUNT 298 K/uL (150-450); RED BLOOD COUNT 3.17 M/uL (4.00-6.00); RED CELL DISTRIBUTION WIDTH 14.2 % (11.5-14.5)
[2024-02-06 07:13] LABS: ALBUMIN 2.7 gm/dL (3.4-5.0); BILIRUBIN TOTAL 0.76 mg/dL (0.3-1.2); CALCIUM 8.8 mg/dL (8.5-10.1); CREATININE SERUM 0.97 mg/dL (0.70-1.30); GFR 77.67; GLOBULINA 3.4 G/DL (2.4-3.5); POTASSIUM 4.58 mEq/L (3.5-5.1); TOTAL PROTEIN 6.1 gm/dL (6.4-8.2)
[2024-02-06] MEDS ORDERED: GABAPENTIN 300 MG CAPSULE PO SCH (21:00)
[2024-02-06] MEDS ORDERED: SERTRALINE HCL 50 MG TABLET PO SCH (21:00)
[2024-02-07] VITALS (8 sets, daily range): BP systolic 136–160; BP diastolic 73–85; O2SAT 94–99
[2024-02-07] MEDS ORDERED: DEXTROSE 50 % IN WATER 0.5 G/ML DISP.SYRIN IV PRN (08:45)
[2024-02-07] MEDS ORDERED: INSULIN LISPRO 1,000 UNIT/10 ML UNITS SUBCUTANEO PRN (08:45)
[2024-02-08] VITALS (9 sets, daily range): BP systolic 139–162; BP diastolic 74–90; O2SAT 90–99
[2024-02-09] VITALS (9 sets, daily range): BP systolic 141–151; BP diastolic 63–89; O2SAT 90–100
[2024-02-09] MEDS ORDERED: LOSARTAN POTASSIUM 100 MG TABLET PO SCH (09:00)
[2024-02-10] VITALS (9 sets, daily range): BP systolic 130–155; BP diastolic 69–86; O2SAT 95–99
[2024-02-10 15:32] LABS: HEMATOCRIT 31.6 % (39.0-48.0); HEMOGLOBIN 10.5 g/dL (13-16.00); MEAN CELL VOLUME 93.3 fL (80.0-100.00); MEAN CORPUSCULAR HGB CONC 33.2 g/dl (32.0-36.0); PLATELET COUNT 305 K/uL (150-450); RED BLOOD COUNT 3.39 M/uL (4.00-6.00); RED CELL DISTRIBUTION WIDTH 14.7 % (11.5-14.5)
[2024-02-10 15:58] LABS: ALBUMIN 2.9 gm/dL (3.4-5.0); BILIRUBIN TOTAL 0.43 mg/dL (0.3-1.2); CALCIUM 8.4 mg/dL (8.5-10.1); CREATININE SERUM 1.08 mg/dL (0.70-1.30); GFR 68.62; GLOBULINA 3.6 G/DL (2.4-3.5); POTASSIUM 4.38 mEq/L (3.5-5.1); TOTAL PROTEIN 6.5 gm/dL (6.4-8.2)
[2024-02-11 00:01] VITALS: BP 162/95
[2024-02-11 02:00] VITALS: O2SAT 90
[2024-02-11 06:21] VITALS: O2SAT 93
[2024-02-11 08:08] VITALS: BP 150/76; O2SAT 97
[2024-02-11 09:16] VITALS: O2SAT 99
[2024-02-11 13:21] VITALS: O2SAT 96
== END 2024-02-11 15:10 | disposition home or self-care (01) | DRG 603 ==
LOC: ER 12:52 → ICU-2 21:06 → MEDI 02-04 10:50
PROVIDERS: Emergency Medicine; ADMIT Internal Medicine; ATTEND Internal Medicine
PROC: B24BYZZ Ultrasonography of Heart with Aorta using Other Contrast (ICD-10-PCS; principal; 2024-02-04)
PROC: B54DZZZ Ultrasonography of Bilateral Lower Extremity Veins (ICD-10-PCS; 2024-02-04)
PROC: 4A12X4Z Monitoring of Cardiac Electrical Activity, External Approach (ICD-10-PCS; 2024-02-04)
PROC: 02HV33Z Insertion of Infusion Device into Superior Vena Cava, Percutaneous Approach (ICD-10-PCS; 2024-02-06)
DX: L03.116 Cellulitis of left lower limb (principal); I48.20 Chronic atrial fibrillation, unspecified; R65.10 Systemic inflammatory response syndrome (SIRS) of non-infectious origin without acute organ dysfunction; L03.115 Cellulitis of right lower limb; I50.9 Heart failure, unspecified; L97.529 Non-pressure chronic ulcer of other part of left foot with unspecified severity; I10 Essential (primary) hypertension; E11.9 Type 2 diabetes mellitus without complications; Z79.4 Long term (current) use of insulin; D72.829 Elevated white blood cell count, unspecified; E03.9 Hypothyroidism, unspecified

== ENCOUNTER 2024-02-14 21:00 | Emergency (ER) | payer OTHER ==
[~2024-02-14] VITALS: Ht 172.7 cm; Wt 136.1 kg
[2024-02-14] MEDS ORDERED: FAMOTIDINE/PF 20 MG in 0.9 % SODIUM CHLORIDE 8 ML IV PUSH STA (21:05)
[2024-02-14] MEDS ORDERED: 0.9 % SODIUM CHLORIDE 1,000 ML IV SCH (21:15)
[2024-02-14] MEDS ORDERED: ONDANSETRON HCL 2 MG/ML VIAL IV ONE (21:15)
[2024-02-14 21:40] LABS: HEMOGLOBIN 11.2 g/dL (13-16.00); MEAN CELL VOLUME 93.2 fL (80.0-100.00); MEAN CORPUSCULAR HEMOGLOBIN 30.6 pg (27.00-32.0); MEAN CORPUSCULAR HGB CONC 32.9 g/dl (32.0-36.0); PLATELET COUNT 304 K/uL (150-450); RED BLOOD COUNT 3.64 M/uL (4.00-6.00); RED CELL DISTRIBUTION WIDTH 14.3 % (11.5-14.5)
[2024-02-14 21:55] LABS: ALBUMIN 3.4 gm/dL (3.4-5.0); BILIRUBIN TOTAL 0.42 mg/dL (0.3-1.2); CALCIUM 9.5 mg/dL (8.5-10.1); CREATININE SERUM 1.69 mg/dL (0.70-1.30); GFR 40.93; GLOBULINA 4.4 G/DL (2.4-3.5); POTASSIUM 4.37 mEq/L (3.5-5.1); TOTAL PROTEIN 7.8 gm/dL (6.4-8.2)
[2024-02-14] MEDS ORDERED: ONDANSETRON ODT8 MG PO (22:09)
== END 2024-02-15 01:00 | disposition home or self-care (01) ==
LOC: ER 21:00
PROVIDERS: General Practice
DX: R11.0 Nausea (principal); Z88.2 Allergy status to sulfonamides; Z91.041 Radiographic dye allergy status
CPT/HCPCS: 36415; 93005; 96365; 96366; 99283; J2405; J3490; J7030

== ENCOUNTER 2024-02-17 19:19 | Inpatient (IN) | payer OTHER ==
[~2024-02-17] VITALS: Ht 172.7 cm; Wt 158.8 kg
[~2024-02-17 19:19] MED LIST changes: +ONDANSETRON ODT8 MG PO
--- NOTE | 2024-02-17 19:33 | NUR ---
PTE ALERTA Y ORIENTADO X 3 ESFERAS RECIBIDO EN AMBULANCIA SIN FAMILIAR.REFIERE PRESION ARTERIAL ELEVADA,SE NICK MANUAL 130/100.SE REALIZA EKG Y SE MUESTRA A DR GASPAR.
[2024-02-17] MEDS ORDERED: hydrALAZINE HCL 20 MG VIAL IV ONE (20:45)
--- NOTE | 2024-02-17 21:03 | NUR ---
SE ORIENTA PTE SOBRE TX A SEGUIR, EL MISMO REFIERE ENTENDER. SE NICK MJUESTRA DE LAB, SE CANALIZA Y SE ADMINISTRA MED ANTHONY ORDEN MEDICA
[2024-02-17 21:08] LABS: HEMATOCRIT 32.4 % (39.0-48.0); HEMOGLOBIN 10.7 g/dL (13-16.00); MEAN CELL VOLUME 93.1 fL (80.0-100.00); MEAN CORPUSCULAR HEMOGLOBIN 30.8 pg (27.00-32.0); MEAN CORPUSCULAR HGB CONC 33.1 g/dl (32.0-36.0); PLATELET COUNT 265 K/uL (150-450); RED BLOOD COUNT 3.48 M/uL (4.00-6.00); RED CELL DISTRIBUTION WIDTH 14.5 % (11.5-14.5)
[2024-02-17 21:23] LABS: URINE APPEARANCE Clear; URINE BILIRRUBIN Negative (NEGATIVE); URINE BLOOD Negative; URINE COLOR Yellow; URINE GLUCOSE Negative (NEGATIVE); URINE KETONE Negative (NEGATIVE); URINE LEUKOCYTE Negative; URINE NITRATE Negative; URINE UROBILINOGEN 0.2 E.U./dl
[2024-02-17 21:26] LABS: URINE BACTERIA 6.2 uL (0.0-1933); URINE EPITHELIAL CELLS 3.8 uL (0.0-38.8); URINE WBC 15.4 uL (0.0-23.2)
[2024-02-17 21:42] LABS: ALBUMIN 3.3 gm/dL (3.4-5.0); BILIRUBIN TOTAL 0.34 mg/dL (0.3-1.2); CALCIUM 8.8 mg/dL (8.5-10.1); CREATININE SERUM 1.39 mg/dL (0.70-1.30); GFR 51.28; GLOBULINA 3.4 G/DL (2.4-3.5); POTASSIUM 4.56 mEq/L (3.5-5.1); TOTAL PROTEIN 6.7 gm/dL (6.4-8.2)
[2024-02-17 22:28] LABS: URINE PROTEIN 100 (NEGATIVE)
[2024-02-17] MEDS ORDERED: DILTIAZEM HCL 125 MG in 0.9 % SODIUM CHLORIDE 100 ML IV SCH (23:30)
[2024-02-17] MEDS ORDERED: ACETAMINOPHEN 500 MG GEL..CAP PO PRN (23:30)
[2024-02-18] VITALS (9 sets, daily range): BP systolic 138–166; BP diastolic 70–97; O2SAT 97–100
[2024-02-18] MEDS ORDERED: APIXABAN 5 MG TABLET PO SCH (05:00)
[2024-02-18] MEDS ORDERED: LEVOTHYROXINE SODIUM 25 MCG TABLET PO SCH (06:00)
[2024-02-18 07:11] LABS: INR 1.18; PARTIAL THROMBOPLASTIN TIME 32.2 SECONDS (22.0-34.0); PROTHROMBIN TIME 12.7 SECONDS (9.0-11.5)
[2024-02-18] MEDS ORDERED: FUROsemide 20 MG/2 ML VIAL IV SCH (09:00)
[2024-02-18] MEDS ORDERED: FAMOTIDINE/PF 20 MG in 0.9 % SODIUM CHLORIDE 8 ML IV PUSH SCH (09:00)
[2024-02-18] MEDS ORDERED: NIFEDIPINE 30 MG TAB.SA.OSM PO SCH (09:00)
[2024-02-18] MEDS ORDERED: CARVEDILOL 3.125 MG TABLET PO SCH (09:00)
[2024-02-18] MEDS ORDERED: IRBESARTAN 150 MG TABLET PO SCH (11:00)
[2024-02-18] MEDS ORDERED: DEXTROSE 50 % IN WATER 0.5 G/ML DISP.SYRIN IV PRN (13:15)
[2024-02-18] MEDS ORDERED: INSULIN LISPRO 1,000 UNIT/10 ML UNITS SUBCUTANEO PRN (13:15)
[2024-02-18] MEDS ORDERED: SIMVASTATIN 20 MG TABLET PO SCH (17:00)
[2024-02-19] VITALS (7 sets, daily range): BP systolic 127–166; BP diastolic 68–82; O2SAT 96–99
[2024-02-19] MEDS ORDERED: LEVOTHYROXINE SODIUM 50 MCG TABLET PO SCH (06:00)
[2024-02-19] MEDS ORDERED: DOCUSATE CALCIUM 240 MG CAPSULE PO SCH (09:00)
[2024-02-19 09:25] LABS: ALBUMIN 3.2 gm/dL (3.4-5.0); BILIRUBIN TOTAL 1.04 mg/dL (0.3-1.2); CALCIUM 8.8 mg/dL (8.5-10.1); CREATININE SERUM 1.2 mg/dL (0.70-1.30); GFR 60.76; GLOBULINA 3.5 G/DL (2.4-3.5); PHOSPHOROUS 3.4 mg/dL (2.5-4.9); POTASSIUM 4.35 mEq/L (3.5-5.1); TOTAL PROTEIN 6.7 gm/dL (6.4-8.2)
[2024-02-19] MEDS ORDERED: NA PHOS,M-B/NA PHOS,DI-BA 1 BOTTLE ENEMA RECTAL STA (10:02)
[2024-02-19] MEDS ORDERED: MINERAL OIL 30 ML BLIST.PACK PO STA (10:02)
[2024-02-19] MEDS ORDERED: LACTULOSE 20 G/30 ML BLIST.PACK PO STA (10:03)
[2024-02-19] MEDS ORDERED: MAGNESIUM HYDROXIDE 30 ML BLIST.PACK PO STA (10:03)
[2024-02-19] MEDS ORDERED: METOPROLOL TARTRATE 5MG/5ML AMPUL IV NR (14:00)
[2024-02-19] MEDS ORDERED: AMIODARONE HCL 200 MG TABLET PO SCH (17:00)
[2024-02-20] VITALS (9 sets, daily range): BP systolic 132–155; BP diastolic 75–80; O2SAT 93–99
[2024-02-20] MEDS ORDERED: FUROsemide 20 MG/2 ML VIAL IV SCH (09:00)
[2024-02-21 01:00] VITALS: O2SAT 96
[2024-02-21 01:50] VITALS: BP 129/83; O2SAT 99
[2024-02-21 05:00] VITALS: O2SAT 97
[2024-02-21 08:49] VITALS: BP 145/80
[2024-02-21] MEDS ORDERED: IRBESARTAN 300 MG TABLET PO SCH (09:00)
[2024-02-21 09:13] VITALS: O2SAT 97
[2024-02-21 12:37] VITALS: O2SAT 98
== END 2024-02-21 15:08 | disposition home or self-care (01) | DRG 292 ==
LOC: ER 19:19 → MEDJ 23:20 → ICU-2 23:20 → MEDJ 02-18 10:11
PROVIDERS: General Practice; Internal Medicine Nephrology; ADMIT Internal Medicine; ATTEND Internal Medicine
PROC: 4A12X4Z Monitoring of Cardiac Electrical Activity, External Approach (ICD-10-PCS; principal; 2024-02-18)
DX: I13.0 Hypertensive heart and chronic kidney disease with heart failure and stage 1 through stage 4 chronic kidney disease, or unspecified chronic kidney disease (principal); I48.20 Chronic atrial fibrillation, unspecified; N17.9 Acute kidney failure, unspecified; L97.929 Non-pressure chronic ulcer of unspecified part of left lower leg with unspecified severity; L97.919 Non-pressure chronic ulcer of unspecified part of right lower leg with unspecified severity; I50.9 Heart failure, unspecified; D64.9 Anemia, unspecified; E11.65 Type 2 diabetes mellitus with hyperglycemia; Z79.4 Long term (current) use of insulin; E03.9 Hypothyroidism, unspecified; E11.22 Type 2 diabetes mellitus with diabetic chronic kidney disease; N18.9 Chronic kidney disease, unspecified; L08.9 Local infection of the skin and subcutaneous tissue, unspecified; B96.5 Pseudomonas (aeruginosa) (mallei) (pseudomallei) as the cause of diseases classified elsewhere; B95.2 Enterococcus as the cause of diseases classified elsewhere; B96.89 Other specified bacterial agents as the cause of diseases classified elsewhere; E78.5 Hyperlipidemia, unspecified

== ENCOUNTER 2024-04-03 09:36 | Emergency (ER) | payer OTHER ==
[~2024-04-03] VITALS: Ht 167.6 cm; Wt 99.8 kg
[2024-04-03] MEDS ORDERED: AVAPRO75 MG PO (10:08)
[2024-04-03] MEDS ORDERED: LUMIGAN2.5 M1 OP (10:09)
[2024-04-03] MEDS ORDERED: TAMS0.4C PO (10:09)
[2024-04-03] MEDS ORDERED: PROAIR RESPICL90 MCG IH (10:09)
[2024-04-03] MEDS ORDERED: DORZOLAMIDE 2%10 ML OP (10:09)
[2024-04-03] MEDS ORDERED: ALLERGY RELIE15.8 ML NS (10:10)
[2024-04-03 11:08] LABS: HEMOGLOBIN 10.5 g/dL (13-16.00); MEAN CELL VOLUME 91.7 fL (80.0-100.00); MEAN CORPUSCULAR HGB CONC 33.8 g/dl (32.0-36.0); PLATELET COUNT 246 K/uL (150-450); RED BLOOD COUNT 3.38 M/uL (4.00-6.00); RED CELL DISTRIBUTION WIDTH 15.1 % (11.5-14.5)
[2024-04-03 11:25] LABS: CALCIUM 8.5 mg/dL (8.5-10.1); CREATININE SERUM 1.4 mg/dL (0.70-1.30); GFR 50.86; POTASSIUM 4.39 mEq/L (3.5-5.1)
== END 2024-04-03 13:28 | disposition home or self-care (01) ==
LOC: ER 09:36
PROVIDERS: General Practice
DX: E11.622 Type 2 diabetes mellitus with other skin ulcer (principal); L97.828 Non-pressure chronic ulcer of other part of left lower leg with other specified severity; Z79.4 Long term (current) use of insulin

== ENCOUNTER 2024-04-09 16:16 | Emergency (ER) | payer OTHER ==
[~2024-04-09] VITALS: Ht 172.7 cm; Wt 136.1 kg
[~2024-04-09 16:16] MED LIST changes: +ALLERGY RELIE15.8 ML NS; +AVAPRO75 MG PO; +DORZOLAMIDE 2%10 ML OP; +LUMIGAN2.5 M1 OP; +PROAIR RESPICL90 MCG IH; +TAMS0.4C PO
[2024-04-09] MEDS ORDERED: ACETAMINOPHEN 500 MG GEL..CAP PO ONE (18:00)
[2024-04-09 18:53] LABS: HEMATOCRIT 35.4 % (39.0-48.0); HEMOGLOBIN 11.8 g/dL (13-16.00); MEAN CELL VOLUME 93.4 fL (80.0-100.00); MEAN CORPUSCULAR HEMOGLOBIN 31.1 pg (27.00-32.0); MEAN CORPUSCULAR HGB CONC 33.3 g/dl (32.0-36.0); PLATELET COUNT 253 K/uL (150-450); RED BLOOD COUNT 3.79 M/uL (4.00-6.00); RED CELL DISTRIBUTION WIDTH 14.9 % (11.5-14.5)
[2024-04-09 19:18] LABS: CALCIUM 8.9 mg/dL (8.5-10.1); CREATININE SERUM 1.4 mg/dL (0.70-1.30); GFR 50.86; POTASSIUM 4.61 mEq/L (3.5-5.1)
[2024-04-10] MEDS ORDERED: OxyCODONE HCL/APAP UD (PERCOCET) PO STA (05:42)
== END 2024-04-10 07:46 | disposition home or self-care (01) ==
LOC: ER 16:16
PROVIDERS: Emergency Medicine
DX: R53.81 Other malaise (principal); Z20.822 Contact with and (suspected) exposure to COVID-19; Z88.1 Allergy status to other antibiotic agents; Z88.2 Allergy status to sulfonamides; Z91.041 Radiographic dye allergy status

== ENCOUNTER 2024-07-03 12:48 | Emergency (ER) | payer OTHER ==
[~2024-07-03] VITALS: Ht 175.3 cm; Wt 163.3 kg
[2024-07-03 13:26] LABS: HEMATOCRIT 33.6 % (39.0-48.0); HEMOGLOBIN 10.5 g/dL (13-16.00); MEAN CELL VOLUME 91.4 fL (80.0-100.00); MEAN CORPUSCULAR HEMOGLOBIN 28.6 pg (27.00-32.0); MEAN CORPUSCULAR HGB CONC 31.3 g/dl (32.0-36.0); PLATELET COUNT 287 K/uL (150-450); RED BLOOD COUNT 3.68 M/uL (4.00-6.00); RED CELL DISTRIBUTION WIDTH 15.1 % (11.5-14.5)
[2024-07-03 13:48] LABS: CALCIUM 8.7 mg/dL (8.5-10.1); CREATININE SERUM 1.52 mg/dL (0.70-1.30); GFR 46.26; POTASSIUM 4.31 mEq/L (3.5-5.1)
[2024-07-03 14:57] LABS: PH,URINE 5.5 (5.0-8.0); URINE APPEARANCE Clear; URINE BILIRRUBIN Negative (NEGATIVE); URINE BLOOD Negative; URINE COLOR Yellow; URINE GLUCOSE Negative (NEGATIVE); URINE KETONE Negative (NEGATIVE); URINE LEUKOCYTE Negative; URINE NITRATE Negative; URINE PROTEIN 30 (NEGATIVE); URINE UROBILINOGEN 0.2 E.U./dl
[2024-07-03 15:00] LABS: URINE BACTERIA 6.1 uL (0.0-1933)
[2024-07-03 15:02] LABS: URINE EPITHELIAL CELLS 0.4 uL (0.0-38.8); URINE RBC 1.7 uL (0.0-20.8); URINE WBC 1.3 uL (0.0-23.2)
== END 2024-07-03 20:10 | disposition home or self-care (01) ==
LOC: ER 12:48
PROVIDERS: Emergency Medicine
DX: R53.81 Other malaise (principal); I49.1 Atrial premature depolarization; E66.9 Obesity, unspecified; E78.5 Hyperlipidemia, unspecified; I10 Essential (primary) hypertension; E11.9 Type 2 diabetes mellitus without complications; Z79.4 Long term (current) use of insulin; Z88.1 Allergy status to other antibiotic agents; Z88.2 Allergy status to sulfonamides; Z91.041 Radiographic dye allergy status

== ENCOUNTER 2024-07-12 07:46 | Inpatient (IN) | payer OTHER ==
[~2024-07-12] VITALS: Ht 172.7 cm; Wt 149.7 kg
[2024-07-12] MEDS ORDERED: SERTRALINE HCL50 MG PO (08:10)
[2024-07-12] MEDS ORDERED: TAMSULOSIN HCL0.4 MG PO (08:11)
[2024-07-12] MEDS ORDERED: DORZOLAMIDE HCL10 ML OP (08:11)
[2024-07-12] MEDS ORDERED: BRIMONIDINE-TIMO5 ML OP (08:11)
[2024-07-12 10:11] LABS: ABG PH 7.427 (7.35-7.45); ABG PO2 88.8 mmHg (80-100); ABG pCO2 34.4 mmHg (35-45); BASE EXCESS -1.4 mmol/l; BICARBONATE 22.2 mmol/l (23-25); Tco2 23.3 mmol/l
[2024-07-12 10:25] LABS: allen test SATISFACTORY; o2 36 %; puncture site RADIAL RIGHT
[2024-07-12 10:40] LABS: HEMATOCRIT 31.2 % (39.0-48.0); HEMOGLOBIN 10.1 g/dL (13-16.00); MEAN CORPUSCULAR HEMOGLOBIN 29.5 pg (27.00-32.0); MEAN CORPUSCULAR HGB CONC 32.5 g/dl (32.0-36.0); PLATELET COUNT 232 K/uL (150-450); RED BLOOD COUNT 3.43 M/uL (4.00-6.00); RED CELL DISTRIBUTION WIDTH 15.1 % (11.5-14.5)
[2024-07-12 11:10] LABS: ALBUMIN 3.4 gm/dL (3.4-5.0); BILIRUBIN TOTAL 0.79 mg/dL (0.3-1.2); CALCIUM 8.5 mg/dL (8.5-10.1); CREATININE SERUM 1.8 mg/dL (0.70-1.30); GFR 38.06; POTASSIUM 4.6 mEq/L (3.5-5.1); TOTAL PROTEIN 7.4 gm/dL (6.4-8.2)
[2024-07-12] MEDS ORDERED: ALBUTEROL SULFATE 3 ML/2.5 MG AMPUL.NEB IH SCH (12:15)
[2024-07-12] MEDS ORDERED: AZITHROMYCIN 500 MG VIAL IV ONE (14:45)
[2024-07-12 16:31] LABS: PH,URINE 5.5 (5.0-8.0); URINE APPEARANCE Clear; URINE BILIRRUBIN Negative (NEGATIVE); URINE BLOOD Small; URINE COLOR Yellow; URINE GLUCOSE Negative (NEGATIVE); URINE KETONE Negative (NEGATIVE); URINE LEUKOCYTE Negative; URINE NITRATE Negative; URINE UROBILINOGEN 0.2 E.U./dl
[2024-07-12 16:35] LABS: URINE BACTERIA 7.3 uL (0.0-1933); URINE EPITHELIAL CELLS 1.7 uL (0.0-38.8); URINE WBC 2.8 uL (0.0-23.2)
[2024-07-12 16:36] LABS: URINE PROTEIN 100 (NEGATIVE)
[2024-07-12] MEDS ORDERED: DEXTROSE 50 % IN WATER 0.5 G/ML DISP.SYRIN IV PRN (18:45)
[2024-07-12] MEDS ORDERED: INSULIN LISPRO 1,000 UNIT/10 ML UNITS SUBCUTANEO PRN (18:45)
[2024-07-12 18:52] VITALS: BP 150/82
[2024-07-12] MEDS ORDERED: SERTRALINE HCL 50 MG TABLET PO SCH (21:00)
[2024-07-12] MEDS ORDERED: CARVEDILOL 3.125 MG TABLET PO SCH (21:00)
[2024-07-12] MEDS ORDERED: CEFTRIAXONE SODIUM 2,000 MG in 0.9 % SODIUM CHLORIDE 100 ML IV SCH (21:00)
[2024-07-12 22:29] VITALS: BP 171/108; O2SAT 89
[2024-07-13] VITALS (8 sets, daily range): BP systolic 145–172; BP diastolic 81–99; O2SAT 90–97
[2024-07-13] MEDS ORDERED: LEVALBUTEROL HCL 0.63 MG/3 ML SOLUTION IH SCH
[2024-07-13] MEDS ORDERED: IPRATROPIUM BROMIDE 0.5 MG/2.5 ML AMPUL.NEB IH SCH (01:00)
[2024-07-13] MEDS ORDERED: LEVOTHYROXINE SODIUM 50 MCG TABLET PO SCH (06:00)
[2024-07-13] MEDS ORDERED: IRBESARTAN 300 MG TABLET PO SCH (09:00)
[2024-07-13] MEDS ORDERED: FUROsemide 40 MG TABLET PO SCH (09:00)
[2024-07-13] MEDS ORDERED: AMIODARONE HCL 200 MG TABLET PO SCH (09:00)
[2024-07-13] MEDS ORDERED: AZITHROMYCIN 500 MG VIAL IV SCH (09:00)
[2024-07-13] MEDS ORDERED: APIXABAN 5 MG TABLET PO SCH (09:00)
[2024-07-13] MEDS ORDERED: FAMOtidine 10 MG/ML (4ML VIAL) IV SCH (12:00)
[2024-07-13] MEDS ORDERED: ENALAPRILAT DIHYDRATE 2.5 MG/2 ML VIAL IV PRN (12:15)
[2024-07-13] MEDS ORDERED: ENALAPRILAT DIHYDRATE 1.25 MG/ML VIAL IV PRN (12:30)
[2024-07-13] MEDS ORDERED: LACTOBACILLUS ACIDOPHILUS 1 CAP CAP PO SCH (17:00)
[2024-07-13] MEDS ORDERED: FAMOTIDINE/PF 20 MG/2 ML VIAL IV SCH (17:00)
[2024-07-13] MEDS ORDERED: SIMVASTATIN 20 MG TABLET PO SCH (17:00)
[2024-07-14] MEDS ORDERED: ACETAMINOPHEN 500 MG GEL..CAP PO PRN (00:15)
[2024-07-14 01:00] VITALS: O2SAT 90
[2024-07-14 01:17] VITALS: BP 144/95; O2SAT 96
[2024-07-14 07:49] VITALS: BP 144/99; O2SAT 97
[2024-07-14] MEDS ORDERED: AMLODIPINE BESYLATE 5 MG TABLET PO SCH (09:00)
[2024-07-14 09:16] LABS: HEMATOCRIT 32.9 % (39.0-48.0); HEMOGLOBIN 10.9 g/dL (13-16.00); MEAN CELL VOLUME 91.7 fL (80.0-100.00); MEAN CORPUSCULAR HEMOGLOBIN 30.3 pg (27.00-32.0); PLATELET COUNT 240 K/uL (150-450); RED BLOOD COUNT 3.59 M/uL (4.00-6.00); RED CELL DISTRIBUTION WIDTH 15.4 % (11.5-14.5)
[2024-07-14 09:39] LABS: ALBUMIN 3.1 gm/dL (3.4-5.0); BILIRUBIN TOTAL 0.78 mg/dL (0.3-1.2); CALCIUM 8.2 mg/dL (8.5-10.1); CREATININE SERUM 1.56 mg/dL (0.70-1.30); GFR 44.89; GLOBULINA 4.1 G/DL (2.4-3.5); POTASSIUM 4.36 mEq/L (3.5-5.1); TOTAL PROTEIN 7.2 gm/dL (6.4-8.2)
[2024-07-14 12:34] VITALS: O2SAT 90
[2024-07-14 17:25] VITALS: BP 160/90; O2SAT 95
[2024-07-14] MEDS ORDERED: LINEZOLID IN DEXTROSE 5% 600 MG/300 ML PIGGYBAG IV STA (18:24)
[2024-07-14 20:43] VITALS: O2SAT 94
[2024-07-15] VITALS (7 sets, daily range): BP systolic 143–164; BP diastolic 87–106; O2SAT 93–100
[2024-07-15] MEDS ORDERED: LINEZOLID IN DEXTROSE 5% 600 MG/300 ML PIGGYBAG IV SCH (05:00)
[2024-07-15] MEDS ORDERED: CEFEPIME HCL 2,000 MG in DEXTROSE 5 % IN WATER 100 ML IV SCH (09:00)
[2024-07-15] MEDS ORDERED: AMLODIPINE BESYLATE 10 MG TABLET PO SCH (09:00)
[2024-07-15] MEDS ORDERED: CLOTRIMAZOLE 30 GM TUBE TOP SCH (09:00)
[2024-07-15] MEDS ORDERED: METHYLPREDNISOLONE SOD SUCC 40 MG VIAL IV NR (14:00)
[2024-07-15] MEDS ORDERED: hydrALAZINE HCL 25 MG TABLET PO SCH (17:00)
[2024-07-15] MEDS ORDERED: METHYLPREDNISOLONE SOD SUCC 40 MG VIAL IV SCH (21:00)
[2024-07-16] VITALS (7 sets, daily range): BP systolic 141–147; BP diastolic 85–91; O2SAT 88–98
[2024-07-16] MEDS ORDERED: FAMOtidine 20 MG TABLET PO SCH (17:00)
[2024-07-17] VITALS (9 sets, daily range): BP systolic 143–150; BP diastolic 85–90; O2SAT 93–98
[2024-07-17 05:39] LABS: CALCIUM 8.1 mg/dL (8.5-10.1); CREATININE SERUM 1.48 mg/dL (0.70-1.30); GFR 47.7; POTASSIUM 4.84 mEq/L (3.5-5.1)
[2024-07-17] MEDS ORDERED: LINEZOLID 600 MG TABLET PO SCH (17:00)
[2024-07-18] VITALS (9 sets, daily range): BP systolic 136–152; BP diastolic 90–92; O2SAT 96–99
[2024-07-19] VITALS (8 sets, daily range): BP systolic 149–181; BP diastolic 85–95; O2SAT 95–98
[2024-07-20 01:00] VITALS: O2SAT 95
[2024-07-20 01:30] VITALS: BP 147/84
[2024-07-20 05:00] VITALS: O2SAT 95
[2024-07-20 08:49] VITALS: O2SAT 96
[2024-07-20 09:07] VITALS: BP 146/86
== END 2024-07-20 10:55 | disposition home or self-care (01) | DRG 194 ==
LOC: ER 07:46 → MEDJ 18:41
PROVIDERS: Emergency Medicine; ADMIT Internal Medicine; ATTEND Internal Medicine
PROC: 4A12X4Z Monitoring of Cardiac Electrical Activity, External Approach (ICD-10-PCS; 2024-07-13)
PROC: 0JBQ0ZX Excision of Right Foot Subcutaneous Tissue and Fascia, Open Approach, Diagnostic (ICD-10-PCS; principal; 2024-07-15)
DX: J18.9 Pneumonia, unspecified organism (principal); I13.0 Hypertensive heart and chronic kidney disease with heart failure and stage 1 through stage 4 chronic kidney disease, or unspecified chronic kidney disease; J44.1 Chronic obstructive pulmonary disease with (acute) exacerbation; I89.0 Lymphedema, not elsewhere classified; I48.91 Unspecified atrial fibrillation; E03.9 Hypothyroidism, unspecified; E78.5 Hyperlipidemia, unspecified; I50.9 Heart failure, unspecified; N18.9 Chronic kidney disease, unspecified

== ENCOUNTER 2024-07-20 14:10 | Inpatient (IN) | payer OTHER ==
[~2024-07-20] VITALS: Ht 172.7 cm; Wt 149.7 kg
[~2024-07-20 14:10] MED LIST changes: +BRIMONIDINE-TIMO5 ML OP; +DORZOLAMIDE HCL10 ML OP; +TAMSULOSIN HCL0.4 MG PO
[2024-07-20] MEDS ORDERED: INSULIN REGULAR, HUMAN 1,000 UNIT/10 ML UNITS IV ONE (15:45)
[2024-07-20 15:58] LABS: HEMATOCRIT 39.6 % (39.0-48.0); HEMOGLOBIN 12.3 g/dL (13-16.00); MEAN CELL VOLUME 89.7 fL (80.0-100.00); MEAN CORPUSCULAR HEMOGLOBIN 27.9 pg (27.00-32.0); MEAN CORPUSCULAR HGB CONC 31.1 g/dl (32.0-36.0); PLATELET COUNT 316 K/uL (150-450); RED BLOOD COUNT 4.41 M/uL (4.00-6.00); RED CELL DISTRIBUTION WIDTH 15.4 % (11.5-14.5)
[2024-07-20 16:11] LABS: URINE APPEARANCE Clear; URINE BILIRRUBIN Negative (NEGATIVE); URINE BLOOD Small; URINE COLOR Yellow; URINE KETONE Negative (NEGATIVE); URINE LEUKOCYTE Negative; URINE NITRATE Negative; URINE UROBILINOGEN 0.2 E.U./dl
[2024-07-20 16:14] LABS: URINE BACTERIA 14.6 uL (0.0-1933); URINE CAST 1.76 uL (0.0-1.40); URINE RBC 19.2 uL (0.0-20.8); URINE WBC 7.2 uL (0.0-23.2)
[2024-07-20 16:14] LABS: ABG PH 7.454 (7.35-7.45); ABG PO2 61.9 mmHg (80-100); ABG pCO2 42.5 mmHg (35-45); BASE EXCESS 4.7 mmol/l; BICARBONATE 29.2 mmol/l (23-25); SaO2 92.9 %; Tco2 30.5 mmol/l
[2024-07-20 16:21] LABS: allen test SATISFACTORY; puncture site RADIAL LEFT
[2024-07-20 16:22] LABS: o2 21 %
[2024-07-20 16:27] LABS: BILIRUBIN TOTAL 1.12 mg/dL (0.3-1.2); CALCIUM 8.8 mg/dL (8.5-10.1); CREATININE SERUM 1.63 mg/dL (0.70-1.30); GFR 42.67; GLOBULINA 4.6 G/DL (2.4-3.5); POTASSIUM 4.48 mEq/L (3.5-5.1); TOTAL PROTEIN 7.6 gm/dL (6.4-8.2)
[2024-07-20 16:30] LABS: INR 1.41; PARTIAL THROMBOPLASTIN TIME 28.7 SECONDS (22.0-34.0)
[2024-07-20 16:39] LABS: URINE GLUCOSE 500 MG/DL (NEGATIVE); URINE PROTEIN 100 (NEGATIVE)
[2024-07-20] MEDS ORDERED: 0.9 % SODIUM CHLORIDE 500 ML IV ONE (18:00)
[2024-07-20] MEDS ORDERED: IPRATROPIUM BROMIDE 0.5 MG/2.5 ML AMPUL.NEB IH SCH (19:00)
[2024-07-20] MEDS ORDERED: FUROsemide 20 MG/2 ML VIAL IV SCH (19:05)
[2024-07-20 19:08] LABS: D DIMER 0.68 MG/L
[2024-07-20] MEDS ORDERED: DEXTROSE 50 % IN WATER 0.5 G/ML DISP.SYRIN IV PRN (19:15)
[2024-07-20] MEDS ORDERED: INSULIN LISPRO 1,000 UNIT/10 ML UNITS SUBCUTANEO PRN (19:15)
[2024-07-20] MEDS ORDERED: ACETAMINOPHEN 500 MG GEL..CAP PO PRN (19:15)
[2024-07-20 20:05] VITALS: BP 134/92; O2SAT 96
[2024-07-20 21:54] VITALS: BP 171/103
[2024-07-21 00:32] VITALS: BP 163/95; O2SAT 97
[2024-07-21] MEDS ORDERED: APIXABAN 5 MG TABLET PO SCH (05:00)
[2024-07-21] MEDS ORDERED: LEVOTHYROXINE SODIUM 25 MCG TABLET PO SCH (06:00)
[2024-07-21 07:59] VITALS: BP 178/80
[2024-07-21] MEDS ORDERED: FUROsemide 40 MG/4 ML VIAL IV SCH (09:00)
[2024-07-21] MEDS ORDERED: hydrALAZINE HCL 25 MG TABLET PO SCH (09:00)
[2024-07-21] MEDS ORDERED: IRBESARTAN 75 MG TABLET PO SCH (09:00)
[2024-07-21] MEDS ORDERED: CARVEDILOL 3.125 MG TABLET PO SCH (09:00)
[2024-07-21] MEDS ORDERED: TAMSULOSIN HCL 0.4 MG CAP PO SCH (09:00)
[2024-07-21] MEDS ORDERED: FAMOTIDINE/PF 20 MG in 0.9 % SODIUM CHLORIDE 8 ML IV PUSH SCH (09:00)
[2024-07-21] MEDS ORDERED: KETOROLAC TROMETHAMINE 30 MG VIAL IM PRN (10:45)
[2024-07-21] MEDS ORDERED: SERTRALINE HCL 25 MG TABLET PO NR (12:00)
[2024-07-21] MEDS ORDERED: INSULIN NPH HUM/REG INSULIN HM 1,000 UNIT/10 ML UNITS SUBCUTANEO STA (12:01)
[2024-07-21 16:53] VITALS: BP 142/87
[2024-07-21] MEDS ORDERED: LINEZOLID 600 MG TABLET PO SCH (21:00)
[2024-07-21] MEDS ORDERED: CEFEPIME HCL 2,000 MG VIAL IV SCH (21:00)
[2024-07-21 22:07] LABS: PH,URINE 5.5 (5.0-8.0); URINE APPEARANCE Clear; URINE BILIRRUBIN Negative (NEGATIVE); URINE BLOOD Trace; URINE COLOR Yellow; URINE GLUCOSE Negative (NEGATIVE); URINE KETONE Negative (NEGATIVE); URINE LEUKOCYTE Trace; URINE NITRATE Negative; URINE UROBILINOGEN 0.2 E.U./dl
[2024-07-21 22:11] LABS: URINE BACTERIA 28.1 uL (0.0-1933); URINE CAST 1.62 uL (0.0-1.40); URINE EPITHELIAL CELLS 4.1 uL (0.0-38.8); URINE RBC 17.3 uL (0.0-20.8); URINE WBC 15.9 uL (0.0-23.2)
[2024-07-21 22:20] LABS: URINE PROTEIN 100 (NEGATIVE)
[2024-07-22 00:48] VITALS: BP 108/72; O2SAT 96
[2024-07-22] MEDS ORDERED: LEVOTHYROXINE SODIUM 50 MCG TABLET PO SCH (06:00)
[2024-07-22 06:37] LABS: HEMATOCRIT 37.8 % (39.0-48.0); HEMOGLOBIN 12.4 g/dL (13-16.00); MEAN CELL VOLUME 87.7 fL (80.0-100.00); MEAN CORPUSCULAR HEMOGLOBIN 28.8 pg (27.00-32.0); MEAN CORPUSCULAR HGB CONC 32.9 g/dl (32.0-36.0); PLATELET COUNT 364 K/uL (150-450); RED BLOOD COUNT 4.31 M/uL (4.00-6.00); RED CELL DISTRIBUTION WIDTH 14.9 % (11.5-14.5)
[2024-07-22 07:03] LABS: BILIRUBIN TOTAL 1.25 mg/dL (0.3-1.2); CALCIUM 8.7 mg/dL (8.5-10.1); CREATININE SERUM 1.65 mg/dL (0.70-1.30); GFR 42.08; GLOBULINA 3.7 G/DL (2.4-3.5); MAGNESIUM 2.2 mg/dL (1.8-2.4); PHOSPHOROUS 3.2 mg/dL (2.5-4.9); POTASSIUM 4.25 mEq/L (3.5-5.1); TOTAL PROTEIN 6.7 gm/dL (6.4-8.2)
[2024-07-22] MEDS ORDERED: INSULIN NPH HUM/REG INSULIN HM 1,000 UNIT/10 ML UNITS SUBCUTANEO SCH (08:00)
[2024-07-22 08:05] LABS: C-REACTIVE PROTEIN 0.57 MG/DL (0.00-0.29)
[2024-07-22 08:29] VITALS: BP 138/97; O2SAT 96
[2024-07-22] MEDS ORDERED: LACTOBACILLUS ACIDOPHILUS 1 CAP CAP PO SCH (09:00)
[2024-07-22] MEDS ORDERED: SERTRALINE HCL 25 MG TABLET PO SCH (09:00)
[2024-07-22] MEDS ORDERED: BARIUM SULFATE 450 ML ORAL.SUSP PO NR (16:00)
[2024-07-22] MEDS ORDERED: MEROPENEM 500 MG/VIAL VIAL IV SCH (17:00)
[2024-07-22 17:36] VITALS: BP 135/74
[2024-07-22] MEDS ORDERED: VANCOMYCIN HCL 5 MG/ML REDILUIDO IV SCH (18:00)
[2024-07-22 22:28] LABS: ALBUMIN 2.9 gm/dL (3.4-5.0); BILIRUBIN TOTAL 1.36 mg/dL (0.3-1.2); CALCIUM 8.4 mg/dL (8.5-10.1); CREATININE SERUM 1.75 mg/dL (0.70-1.30); GFR 39.31; GLOBULINA 3.7 G/DL (2.4-3.5); POTASSIUM 4.79 mEq/L (3.5-5.1); TOTAL PROTEIN 6.6 gm/dL (6.4-8.2)
[2024-07-23 01:03] VITALS: BP 126/81
[2024-07-23 07:00] LABS: ALBUMIN 2.8 gm/dL (3.4-5.0); BILIRUBIN TOTAL 1.1 mg/dL (0.3-1.2); CALCIUM 8.2 mg/dL (8.5-10.1); CREATININE SERUM 1.72 mg/dL (0.70-1.30); GFR 40.11; GLOBULINA 3.3 G/DL (2.4-3.5); POTASSIUM 4.06 mEq/L (3.5-5.1); TOTAL PROTEIN 6.1 gm/dL (6.4-8.2)
[2024-07-23 08:35] VITALS: BP 131/80; O2SAT 97
[2024-07-23] MEDS ORDERED: MEPERIDINE HCL/PF 50 MG/ML VIAL IV ONE (09:00)
[2024-07-23] MEDS ORDERED: TRAMADOL HCL 50 MG TABLET PO PRN (16:00)
[2024-07-23 17:31] VITALS: BP 109/70; O2SAT 96
[2024-07-23] MEDS ORDERED: FUROsemide 20 MG/2 ML VIAL IV SCH (21:00)
[2024-07-24] VITALS (10 sets, daily range): BP systolic 86–117; BP diastolic 47–80; O2SAT 96–98
[2024-07-24] MEDS ORDERED: NOREPINEPHRINE BITARTRATE 4 MG in DEXTROSE 5 % IN WATER 250 ML IV SCH (09:15)
[2024-07-24] MEDS ORDERED: 0.9 % SODIUM CHLORIDE 1 ML IV ONE (09:30)
[2024-07-24 10:18] LABS: HEMATOCRIT 36.3 % (39.0-48.0); HEMOGLOBIN 11.8 g/dL (13-16.00); MEAN CELL VOLUME 88.6 fL (80.0-100.00); MEAN CORPUSCULAR HEMOGLOBIN 28.8 pg (27.00-32.0); MEAN CORPUSCULAR HGB CONC 32.5 g/dl (32.0-36.0); PLATELET COUNT 298 K/uL (150-450)
[2024-07-24] MEDS ORDERED: NYSTATIN 30 GM TOP PRN (16:00)
[2024-07-24] MEDS ORDERED: ZINC OXIDE 30 GM TOP PRN (16:00)
[2024-07-24] MEDS ORDERED: ANIDULAFUNGIN 100 MG VIAL IV ONE ×2 (18:30→20:47)
[2024-07-24] MEDS ORDERED: MORPHINE SULFATE 2 MG/ML CARTRIDGE IV ONE (21:45)
[2024-07-25 00:41] VITALS: BP 142/79; O2SAT 90
[2024-07-25 02:47] VITALS: BP 129/72
[2024-07-25 06:22] VITALS: BP 132/84
[2024-07-25 07:39] LABS: HEMATOCRIT 35.3 % (39.0-48.0); HEMOGLOBIN 11.3 g/dL (13-16.00); MEAN CELL VOLUME 90.1 fL (80.0-100.00); MEAN CORPUSCULAR HEMOGLOBIN 28.9 pg (27.00-32.0); PLATELET COUNT 307 K/uL (150-450); RED BLOOD COUNT 3.92 M/uL (4.00-6.00); RED CELL DISTRIBUTION WIDTH 15.1 % (11.5-14.5)
[2024-07-25 07:57] LABS: LDH 215 U/L (87-241); PHOSPHOKINASE CREATININE 146 U/L (39-308)
[2024-07-25 08:04] LABS: CKMB < 1.0 NG/ML (0.5-3.6)
[2024-07-25] MEDS ORDERED: ORPHENADRINE CITRATE 30 MG/ML AMPUL IV SCH (09:00)
[2024-07-25 09:02] VITALS: BP 153/87
[2024-07-25] MEDS ORDERED: ANIDULAFUNGIN 100 MG VIAL IV SCH (17:00)
[2024-07-25 17:03] VITALS: BP 123/65; O2SAT 96
[2024-07-25 21:21] VITALS: BP 113/66
[2024-07-26 01:46] VITALS: BP 102/68; O2SAT 96
[2024-07-26 06:23] VITALS: BP 112/71
[2024-07-26 08:57] VITALS: BP 121/67
[2024-07-26 17:34] VITALS: BP 125/77; O2SAT 97
[2024-07-27 00:35] VITALS: BP 129/84; O2SAT 99
[2024-07-27 06:49] LABS: HEMATOCRIT 32.2 % (39.0-48.0); HEMOGLOBIN 10.2 g/dL (13-16.00); MEAN CELL VOLUME 91.3 fL (80.0-100.00); MEAN CORPUSCULAR HGB CONC 31.8 g/dl (32.0-36.0); PLATELET COUNT 249 K/uL (150-450); RED BLOOD COUNT 3.53 M/uL (4.00-6.00); RED CELL DISTRIBUTION WIDTH 15.3 % (11.5-14.5)
[2024-07-27 07:42] LABS: ALBUMIN 2.7 gm/dL (3.4-5.0); BILIRUBIN TOTAL 1.83 mg/dL (0.3-1.2); CALCIUM 8.3 mg/dL (8.5-10.1); CREATININE SERUM 1.28 mg/dL (0.70-1.30); GFR 56.4; GLOBULINA 3.2 G/DL (2.4-3.5); POTASSIUM 4.35 mEq/L (3.5-5.1); TOTAL PROTEIN 5.9 gm/dL (6.4-8.2)
[2024-07-27 08:05] VITALS: BP 106/70
[2024-07-27] MEDS ORDERED: FUROsemide 20 MG/2 ML VIAL IV SCH (09:00)
[2024-07-27] MEDS ORDERED: DOCUSATE SODIUM 100MG CAP PO SCH (09:52)
[2024-07-27] MEDS ORDERED: LACTULOSE 20 G/30 ML BLIST.PACK PO NR (10:00)
[2024-07-27 13:03] LABS: ABG PH 7.479 (7.35-7.45); ABG PO2 70.2 mmHg (80-100); ABG pCO2 43.6 mmHg (35-45); BASE EXCESS 7.3 mmol/l; BICARBONATE 31.7 mmol/l (23-25); SaO2 95.4 %
[2024-07-27 13:12] LABS: allen test SATISFACTORY; o2 21 %; puncture site RADIAL LEFT
[2024-07-27 13:44] LABS: PLATELET ESTIMATE NORMAL (NORMAL)
[2024-07-27 16:46] VITALS: BP 130/80; O2SAT 97
[2024-07-27] MEDS ORDERED: CEFTAZIDIME/AVIBACTAM 2.5 GM VIAL IV SCH (17:00)
[2024-07-27] MEDS ORDERED: VANCOMYCIN HCL 1,000 MG,VANCOMYCIN HCL 500 MG IV SCH (21:00)
[2024-07-28] VITALS: BP 123/81; O2SAT 99
[2024-07-28 08:09] VITALS: BP 118/78
[2024-07-28] MEDS ORDERED: ACETAMINOPHEN 500 MG GEL..CAP PO PRN (13:45)
[2024-07-28 16:18] VITALS: BP 142/78; O2SAT 100
[2024-07-28] MEDS ORDERED: FLUCONAZOLE IN NACL,ISO-OSM 400 MG/200 ML PIGGYBAG IV NR (17:00)
[2024-07-28] MEDS ORDERED: INSULIN NPH HUM/REG INSULIN HM 1,000 UNIT/10 ML UNITS SUBCUTANEO SCH (17:00)
[2024-07-28] MEDS ORDERED: VANCOMYCIN HCL 5 MG/ML REDILUIDO IV SCH (21:00)
[2024-07-28 21:28] VITALS: BP 127/81; O2SAT 98
[2024-07-29 02:43] VITALS: BP 117/46; O2SAT 99
[2024-07-29 05:33] LABS: HEMATOCRIT 29.2 % (39.0-48.0); MEAN CELL VOLUME 90.2 fL (80.0-100.00); MEAN CORPUSCULAR HGB CONC 32.2 g/dl (32.0-36.0); PLATELET COUNT 229 K/uL (150-450); RED BLOOD COUNT 3.23 M/uL (4.00-6.00); RED CELL DISTRIBUTION WIDTH 15.1 % (11.5-14.5)
[2024-07-29 05:38] LABS: HEMOGLOBIN 9.4 g/dL (13-16.00); MEAN CORPUSCULAR HEMOGLOBIN 29.1 pg (27.00-32.0)
[2024-07-29 08:59] VITALS: BP 123/80
[2024-07-29] MEDS ORDERED: FLUCONAZOLE IN NACL,ISO-OSM 100 ML IV SCH (09:00)
[2024-07-29 16:57] VITALS: BP 100/54; O2SAT 100
[2024-07-30 01:00] VITALS: BP 110/77; O2SAT 98
[2024-07-30 08:41] VITALS: BP 128/97
[2024-07-30 18:01] VITALS: BP 156/94
[2024-07-31 02:28] VITALS: BP 116/77; O2SAT 99
[2024-07-31] MEDS ORDERED: FLUCONAZOLE 200 MG TABLET PO SCH (09:00)
[2024-07-31 10:58] VITALS: BP 116/68; O2SAT 100
[2024-07-31 18:38] VITALS: BP 142/88
[2024-08-01 01:14] VITALS: BP 132/80; O2SAT 100
[2024-08-01 08:16] VITALS: BP 139/84; O2SAT 98
[2024-08-01 17:42] VITALS: BP 134/82
[2024-08-02 01:41] VITALS: BP 105/65; O2SAT 98
[2024-08-02 04:50] VITALS: BP 114/72; O2SAT 97
[2024-08-02 07:11] LABS: CALCIUM 8.9 mg/dL (8.5-10.1); CREATININE SERUM 1.2 mg/dL (0.70-1.30); GFR 60.76; POTASSIUM 4.66 mEq/L (3.5-5.1)
[2024-08-02 07:21] LABS: MEAN CELL VOLUME 88.8 fL (80.0-100.00); MEAN CORPUSCULAR HEMOGLOBIN 29.6 pg (27.00-32.0); MEAN CORPUSCULAR HGB CONC 33.3 g/dl (32.0-36.0); PLATELET COUNT 228 K/uL (150-450); RED BLOOD COUNT 3.37 M/uL (4.00-6.00); RED CELL DISTRIBUTION WIDTH 15.7 % (11.5-14.5)
[2024-08-02 08:19] VITALS: BP 114/78; O2SAT 98
[2024-08-02 17:45] VITALS: BP 122/72
[2024-08-03 01:39] VITALS: BP 145/77; O2SAT 98
[2024-08-03 05:28] VITALS: BP 132/83; O2SAT 100
[2024-08-03 08:44] VITALS: BP 131/83; O2SAT 98
[2024-08-03] MEDS ORDERED: BISMUTH SUBSALICYLATE 524 MG/30 ML BLIST.PACK PO PRN (12:30)
[2024-08-03 18:04] VITALS: BP 119/66
[2024-08-04 00:56] VITALS: BP 129/80
[2024-08-04 08:53] VITALS: BP 123/72
[2024-08-04 11:23] LABS: HEMATOCRIT 38.5 % (39.0-48.0); HEMOGLOBIN 13.2 g/dL (13-16.00); MEAN CELL VOLUME 95.7 fL (80.0-100.00); MEAN CORPUSCULAR HEMOGLOBIN 32.7 pg (27.00-32.0); MEAN CORPUSCULAR HGB CONC 34.2 g/dl (32.0-36.0); PLATELET COUNT 273 K/uL (150-450); RED BLOOD COUNT 4.03 M/uL (4.00-6.00); RED CELL DISTRIBUTION WIDTH 14.1 % (11.5-14.5)
[2024-08-04 12:27] LABS: ALBUMIN 3.3 gm/dL (3.4-5.0); BILIRUBIN TOTAL 0.54 mg/dL (0.3-1.2); CALCIUM 8.7 mg/dL (8.5-10.1); CREATININE SERUM 0.88 mg/dL (0.70-1.30); GFR 86.91; GLOBULINA 3.9 G/DL (2.4-3.5); PHOSPHOROUS 2.7 mg/dL (2.5-4.9); POTASSIUM 4.13 mEq/L (3.5-5.1); TOTAL PROTEIN 7.2 gm/dL (6.4-8.2)
[2024-08-04 12:29] LABS: C-REACTIVE PROTEIN 0.52 MG/DL (0.00-0.29)
[2024-08-04 16:00] VITALS: BP 117/73
[2024-08-05 00:45] VITALS: BP 100/62
[2024-08-05 08:57] VITALS: BP 119/86
== END 2024-08-05 14:38 | disposition home or self-care (01) | DRG 292 ==
LOC: ER 14:10 → MEDI 19:39 → MEDJ 07-27 12:27 → MEDI 07-27 12:48
PROVIDERS: Emergency Medicine; Internal Medicine; Internal Medicine Infectious Disease; ADMIT Internal Medicine; ATTEND Internal Medicine
PROC: BW24ZZZ Computerized Tomography (CT Scan) of Chest and Abdomen (ICD-10-PCS; 2024-07-20)
PROC: 02HV33Z Insertion of Infusion Device into Superior Vena Cava, Percutaneous Approach (ICD-10-PCS; principal; 2024-07-22)
PROC: BW210ZZ Computerized Tomography (CT Scan) of Abdomen and Pelvis using High Osmolar Contrast (ICD-10-PCS; 2024-07-22)
PROC: 4A12X4Z Monitoring of Cardiac Electrical Activity, External Approach (ICD-10-PCS; 2024-07-24)
PROC: B24BZZZ Ultrasonography of Heart with Aorta (ICD-10-PCS; 2024-07-24)
PROC: 8E0ZXY6 Isolation (ICD-10-PCS; 2024-07-27)
DX: I11.0 Hypertensive heart disease with heart failure (principal); I31.39 Other pericardial effusion (noninflammatory); J44.1 Chronic obstructive pulmonary disease with (acute) exacerbation; N17.9 Acute kidney failure, unspecified; L97.329 Non-pressure chronic ulcer of left ankle with unspecified severity; L97.419 Non-pressure chronic ulcer of right heel and midfoot with unspecified severity; I50.30 Unspecified diastolic (congestive) heart failure; E11.621 Type 2 diabetes mellitus with foot ulcer; R09.02 Hypoxemia; I48.91 Unspecified atrial fibrillation; G47.33 Obstructive sleep apnea (adult) (pediatric); E11.9 Type 2 diabetes mellitus without complications; Z79.4 Long term (current) use of insulin; E03.9 Hypothyroidism, unspecified; E78.5 Hyperlipidemia, unspecified; J44.9 Chronic obstructive pulmonary disease, unspecified; I25.10 Atherosclerotic heart disease of native coronary artery without angina pectoris; E11.65 Type 2 diabetes mellitus with hyperglycemia; I95.89 Other hypotension; H54.3 Unqualified visual loss, both eyes; I89.0 Lymphedema, not elsewhere classified; E11.610 Type 2 diabetes mellitus with diabetic neuropathic arthropathy; E66.01 Morbid (severe) obesity due to excess calories; D64.9 Anemia, unspecified; B96.1 Klebsiella pneumoniae [K. pneumoniae] as the cause of diseases classified elsewhere; B96.89 Other specified bacterial agents as the cause of diseases classified elsewhere

== ENCOUNTER 2024-08-05 19:18 | Emergency (ER) | payer OTHER ==
[~2024-08-05] VITALS: Ht 167.6 cm; Wt 113.4 kg
[2024-08-05] MEDS ORDERED: 0.9 % SODIUM CHLORIDE 1,000 ML IV STA (20:44)
[2024-08-05] MEDS ORDERED: IPRATROPIUM/ALBUTEROL SULFATE 3 ML AMPUL.NEB IH SCH (21:00)
[2024-08-05 21:20] LABS: ABG PH 7.478 (7.35-7.45); ABG PO2 85.8 mmHg (80-100); ABG pCO2 38.7 mmHg (35-45); BASE EXCESS 4.3 mmol/l; SaO2 97.3 %; Tco2 29.2 mmol/l
[2024-08-05 21:49] LABS: allen test SATISFACTORY; o2 21 %; puncture site RADIAL RIGHT
[2024-08-05 23:11] LABS: HEMATOCRIT 31.4 % (39.0-48.0); MEAN CELL VOLUME 90.9 fL (80.0-100.00); MEAN CORPUSCULAR HGB CONC 31.7 g/dl (32.0-36.0); PLATELET COUNT 270 K/uL (150-450); RED BLOOD COUNT 3.45 M/uL (4.00-6.00); RED CELL DISTRIBUTION WIDTH 15.8 % (11.5-14.5)
[2024-08-05 23:37] LABS: INR 1.26; PROTHROMBIN TIME 13.5 SECONDS (9.0-11.5)
[2024-08-05 23:39] LABS: D DIMER 3.06 MG/L; HEMOGLOBIN 9.9 g/dL (13-16.00); MEAN CORPUSCULAR HEMOGLOBIN 28.6 pg (27.00-32.0); PARTIAL THROMBOPLASTIN TIME 26.8 SECONDS (22.0-34.0)
[2024-08-05 23:42] LABS: ALBUMIN 2.9 gm/dL (3.4-5.0); BILIRUBIN TOTAL 0.84 mg/dL (0.3-1.2); CALCIUM 9.4 mg/dL (8.5-10.1); CREATININE SERUM 1.95 mg/dL (0.70-1.30); GFR 34.7; GLOBULINA 4.6 G/DL (2.4-3.5); POTASSIUM 4.86 mEq/L (3.5-5.1); TOTAL PROTEIN 7.5 gm/dL (6.4-8.2)
[2024-08-05 23:43] LABS: ERYTHROCYTE SEDIMENTATION RATE > 130 mm/hr
== END 2024-08-06 15:33 | disposition home or self-care (01) ==
LOC: ER 19:18
DX: R53.1 Weakness (principal); R06.09 Other forms of dyspnea; Z20.822 Contact with and (suspected) exposure to COVID-19; E11.9 Type 2 diabetes mellitus without complications; I10 Essential (primary) hypertension; Z79.4 Long term (current) use of insulin; Z91.041 Radiographic dye allergy status; Z88.2 Allergy status to sulfonamides
CPT/HCPCS: 36415; 51702; 71045; 71250; 82803; 96365; 96366; 99284; J7030

== ENCOUNTER 2024-08-07 10:19 | Emergency (ER) | payer OTHER ==
[~2024-08-07] VITALS: Ht 170.2 cm; Wt 136.1 kg
[2024-08-07] MEDS ORDERED: ONDANSETRON HCL 2 MG/ML VIAL IV STA (10:39)
[2024-08-07] MEDS ORDERED: ONDANSETRON HCL 2 MG/ML VIAL ONE (10:41)
[2024-08-07 11:09] LABS: HEMATOCRIT 30.8 % (39.0-48.0); MEAN CELL VOLUME 90.6 fL (80.0-100.00); MEAN CORPUSCULAR HGB CONC 32.6 g/dl (32.0-36.0); PLATELET COUNT 271 K/uL (150-450); RED BLOOD COUNT 3.39 M/uL (4.00-6.00); RED CELL DISTRIBUTION WIDTH 15.7 % (11.5-14.5)
[2024-08-07 11:12] LABS: MEAN CORPUSCULAR HEMOGLOBIN 29.4 pg (27.00-32.0)
[2024-08-07 11:34] LABS: ALBUMIN 2.9 gm/dL (3.4-5.0); BILIRUBIN TOTAL 1.12 mg/dL (0.3-1.2); BILIRUBIN,CONJUGATED 0.29 mg/dL (0.0-0.2); BILIRUBIN,UNCONJUGATED 0.83 mg/dL (0.0-0.6); CALCIUM 9.3 mg/dL (8.5-10.1); CREATININE SERUM 1.8 mg/dL (0.70-1.30); GFR 38.06; POTASSIUM 3.95 mEq/L (3.5-5.1)
[2024-08-07 13:20] LABS: PH,URINE 5.5 (5.0-8.0); URINE APPEARANCE Clear; URINE BILIRRUBIN Small (NEGATIVE); URINE BLOOD Trace; URINE COLOR Dark Yellow; URINE GLUCOSE Negative (NEGATIVE); URINE KETONE Trace (NEGATIVE); URINE LEUKOCYTE Small; URINE NITRATE Negative
[2024-08-07 13:24] LABS: URINE BACTERIA 64.8 uL (0.0-1933); URINE CAST 10.75 uL (0.0-1.40); URINE EPITHELIAL CELLS 28.3 uL (0.0-38.8); URINE RBC 8.8 uL (0.0-20.8); URINE WBC 93.3 uL (0.0-23.2)
[2024-08-07 13:38] LABS: URINE PROTEIN 100 (NEGATIVE)
[2024-08-07 13:40] LABS: URINE EPITHELIAL CELLS 0-4 /HPF
== END 2024-08-07 16:47 | disposition home or self-care (01) ==
LOC: ER 10:19
PROVIDERS: General Practice
DX: R53.1 Weakness (principal); R00.2 Palpitations; R11.10 Vomiting, unspecified; I10 Essential (primary) hypertension; Z88.1 Allergy status to other antibiotic agents; Z88.2 Allergy status to sulfonamides; Z91.041 Radiographic dye allergy status
CPT/HCPCS: 36415; 71045; 93005; 96365; 99283; J2405

== ENCOUNTER 2024-08-08 22:11 | Emergency (ER) | payer OTHER ==
[~2024-08-08] VITALS: Ht 177.8 cm; Wt 158.8 kg
[2024-08-09] MEDS ORDERED: 0.9 % SODIUM CHLORIDE 1,000 ML IV STA (00:15)
[2024-08-09 01:57] LABS: HEMATOCRIT 32.9 % (39.0-48.0); HEMOGLOBIN 10.7 g/dL (13-16.00); MEAN CELL VOLUME 90.2 fL (80.0-100.00); MEAN CORPUSCULAR HEMOGLOBIN 29.3 pg (27.00-32.0); MEAN CORPUSCULAR HGB CONC 32.5 g/dl (32.0-36.0); PLATELET COUNT 310 K/uL (150-450); RED BLOOD COUNT 3.64 M/uL (4.00-6.00)
[2024-08-09 02:13] LABS: PH,URINE 8.5 (5.0-8.0); URINE APPEARANCE Clear; URINE BILIRRUBIN Negative (NEGATIVE); URINE BLOOD NHT; URINE COLOR Yellow; URINE GLUCOSE Negative (NEGATIVE); URINE KETONE Trace (NEGATIVE); URINE LEUKOCYTE Moderate; URINE NITRATE Negative
[2024-08-09 02:17] LABS: URINE BACTERIA 74.6 uL (0.0-1933); URINE EPITHELIAL CELLS 4.2 uL (0.0-38.8); URINE RBC 41.2 uL (0.0-20.8); URINE WBC 165.4 uL (0.0-23.2)
[2024-08-09 02:31] LABS: ABG PH 7.452 (7.35-7.45); ABG PO2 84.9 mmHg (80-100); ABG pCO2 39.4 mmHg (35-45); BASE EXCESS 2.8 mmol/l; BICARBONATE 26.9 mmol/l (23-25); Tco2 28.1 mmol/l
[2024-08-09 02:34] LABS: URINE PROTEIN 100 (NEGATIVE)
[2024-08-09 02:47] LABS: COCAINE NEGATIVE (NEGATIVE); METHADONE NEGATIVE (NEGATIVE); OPIATES NEGATIVE (NEGATIVE); THC ( Cannabinoids) NEGATIVE (NEGATIVE)
[2024-08-09 02:49] LABS: BILIRUBIN TOTAL 1.08 mg/dL (0.3-1.2); CALCIUM 9.4 mg/dL (8.5-10.1); CREATININE SERUM 1.64 mg/dL (0.70-1.30); GFR 42.37; GLOBULINA 4.1 G/DL (2.4-3.5); POTASSIUM 4.13 mEq/L (3.5-5.1); TOTAL PROTEIN 7.1 gm/dL (6.4-8.2)
[2024-08-09 03:00] LABS: allen test SATISFACTORY; o2 21 %; puncture site RADIAL LEFT
== END 2024-08-09 16:43 | disposition home or self-care (01) ==
LOC: ER 22:11
DX: R53.81 Other malaise (principal); F68.10 Factitious disorder imposed on self, unspecified; Z20.822 Contact with and (suspected) exposure to COVID-19; I10 Essential (primary) hypertension; E11.9 Type 2 diabetes mellitus without complications; Z79.4 Long term (current) use of insulin; Z88.1 Allergy status to other antibiotic agents; Z88.2 Allergy status to sulfonamides; Z91.041 Radiographic dye allergy status
CPT/HCPCS: 36415; 51702; 71045; 82803; 93005; 96365; 96366; 99283; J7030

== ENCOUNTER 2024-09-30 12:29 | Inpatient (IN) | payer OTHER ==
[~2024-09-30] VITALS: Ht 172.7 cm; Wt 149.7 kg
--- NOTE | 2024-09-30 12:38 | NUR ---
SE RECIBE PTE EN AMBULANCIA ALERTA Y ORIENTADO X3, EN COMPANIA DE PARAMEDICOS. PTE REFIERE DOLOR EN TESTICULO IZQ. SE NEMO SV Y SE UBICA
[2024-09-30] MEDS ORDERED: TRAMADOL HCL 50 MG TABLET PO ONE (13:15)
--- NOTE | 2024-09-30 13:35 | NUR ---
RN.CANCEL ORIENTA A PTE SOBRE TX MEDICO ORDENADO POR . REALIZA NICK DE MUESTRAS DE LAB ANTHONY ORDEN MEDICA Y BAJO MEDIDAS. ADMINISTRA MEDICAMENTOS ANTHONY ORDEN. SE NOTIFICA ESTUDIO ORDENADO.
[2024-09-30 14:51] LABS: BASO % 0.5 % (0.1-1.2); EOS % 4.2 % (0.7-7.0); HEMATOCRIT 31.1 % (40.1-51.0); LYMPH # 2.45 (1.18-3.74); LYMPH % 14.6 % (19.3-53.1); MONO # 1.59 (0.24-0.82); MONO % 9.5 % (4.7-12.5); NEUT # 11.86 (1.56-6.13); NEUT % 70.6 % (34.0-71.1); PLATELET COUNT 282 K/uL (163-369); RED BLOOD COUNT 3.45 M/uL (4.63-6.08); RED CELL DISTRIBUTION WIDTH 15.9 % (11.6-14.4)
[2024-09-30 14:59] LABS: ALBUMIN 2.7 gm/dL (3.4-5.0); BILIRUBIN TOTAL 0.76 mg/dL (0.3-1.2); CALCIUM 8.2 mg/dL (8.5-10.1); CREATININE SERUM 1.5 mg/dL (0.70-1.30); GFR 46.97; GLOBULINA 4.6 G/DL (2.4-3.5); POTASSIUM 4.32 mEq/L (3.5-5.1); TOTAL PROTEIN 7.3 gm/dL (6.4-8.2)
[2024-09-30] MEDS ORDERED: CEFTRIAXONE SODIUM 1,000 MG VIAL IM ONE (16:00)
[2024-09-30] MEDS ORDERED: CEFTRIAXONE SODIUM 1,000 MG VIAL ONE (16:39)
[2024-09-30 17:08] LABS: PH,URINE 5.5 (5.0-8.0); URINE APPEARANCE Turbid; URINE BILIRRUBIN Negative (NEGATIVE); URINE BLOOD Small; URINE COLOR Yellow; URINE KETONE Negative (NEGATIVE); URINE LEUKOCYTE Moderate; URINE NITRATE Negative
[2024-09-30 17:13] LABS: URINE EPITHELIAL CELLS 2.6 uL (0.0-38.8); URINE RBC 3.3 uL (0.0-20.8); URINE WBC 1099.5 uL (0.0-23.2)
[2024-09-30 17:23] LABS: URINE BACTERIA > 9821.5 uL (0.0-1933); URINE CAST 0.44 uL (0.0-1.40); URINE GLUCOSE 100 MG/DL (NEGATIVE); URINE PROTEIN 100 (NEGATIVE)
[2024-09-30] MEDS ORDERED: CARVEDILOL 3.125 MG TABLET PO SCH (21:28)
[2024-09-30] MEDS ORDERED: DEXTROSE 50 % IN WATER 0.5 G/ML DISP.SYRIN IV PRN (21:30)
[2024-09-30] MEDS ORDERED: 0.9 % SODIUM CHLORIDE 1,000 ML IV SCH (21:30)
[2024-09-30] MEDS ORDERED: INSULIN LISPRO 1,000 UNIT/10 ML UNITS SUBCUTANEO PRN (21:30)
[2024-10-01] VITALS: BP 154/87; O2SAT 97
[2024-10-01] MEDS ORDERED: APIXABAN 5 MG TABLET PO SCH (05:00)
[2024-10-01] MEDS ORDERED: LEVOTHYROXINE SODIUM 25 MCG TABLET PO SCH (06:00)
[2024-10-01 06:44] LABS: INR 1.13; PROTHROMBIN TIME 12.2 SECONDS (9.0-11.5)
[2024-10-01 07:30] VITALS: BP 136/74; O2SAT 98
[2024-10-01] MEDS ORDERED: INSULIN NPH HUM/REG INSULIN HM 1,000 UNIT/10 ML UNITS SUBCUTANEO SCH ×2 (08:00→17:00)
[2024-10-01] MEDS ORDERED: IRBESARTAN 75 MG TABLET PO SCH ×2 (09:00)
[2024-10-01] MEDS ORDERED: TAMSULOSIN HCL 0.4 MG CAP PO SCH (09:00)
[2024-10-01] MEDS ORDERED: SERTRALINE HCL 50 MG TABLET PO SCH (09:00)
[2024-10-01] MEDS ORDERED: SIMVASTATIN 20 MG TABLET PO SCH (17:00)
[2024-10-01] MEDS ORDERED: CEFTRIAXONE SODIUM 2,000 MG VIAL IV SCH (17:00)
[2024-10-01 17:40] VITALS: BP 155/84; O2SAT 97
[2024-10-02 00:43] VITALS: BP 116/70; O2SAT 96
[2024-10-02 07:00] VITALS: BP 149/80; O2SAT 96
[2024-10-02] MEDS ORDERED: SODIUM HYPOCHLORITE 1OZ TOP SCH (09:00)
[2024-10-02 14:49] LABS: BASO % 0.7 % (0.1-1.2); EOS # 0.81 (0.04-0.54); EOS % 6.8 % (0.7-7.0); HEMATOCRIT 29.4 % (40.1-51.0); HEMOGLOBIN 9.3 g/dL (13.7-17.5); LYMPH # 2.23 (1.18-3.74); LYMPH % 18.6 % (19.3-53.1); MEAN CORPUSCULAR HEMOGLOBIN 29.4 pg (25.6-32.2); MONO # 1.24 (0.24-0.82); MONO % 10.3 % (4.7-12.5); NEUT # 7.57 (1.56-6.13); NEUT % 63.1 % (34.0-71.1); PLATELET COUNT 285 K/uL (163-369); RED BLOOD COUNT 3.16 M/uL (4.63-6.08); RED CELL DISTRIBUTION WIDTH 15.7 % (11.6-14.4)
[2024-10-02 15:47] LABS: ALBUMIN 2.5 gm/dL (3.4-5.0); BILIRUBIN TOTAL 0.41 mg/dL (0.3-1.2); CALCIUM 8.4 mg/dL (8.5-10.1); CREATININE SERUM 1.25 mg/dL (0.70-1.30); GFR 57.97; GLOBULINA 3.9 G/DL (2.4-3.5); MAGNESIUM 2.1 mg/dL (1.8-2.4); PHOSPHOROUS 3.7 mg/dL (2.5-4.9); POTASSIUM 4.8 mEq/L (3.5-5.1); PROSTATIC SPECIFIC ANTIGEN 0.142 NG/ML (0.010-4.00); TOTAL PROTEIN 6.4 gm/dL (6.4-8.2)
[2024-10-02 15:51] LABS: C-REACTIVE PROTEIN 7.19 MG/DL (0.00-0.29)
[2024-10-02 17:09] VITALS: BP 165/80; O2SAT 96
[2024-10-02 17:44] VITALS: BP 164/77; O2SAT 97
[2024-10-03 01:59] VITALS: BP 168/75; O2SAT 94
[2024-10-03 09:24] VITALS: BP 156/84; O2SAT 96
[2024-10-03 16:59] VITALS: BP 169/68
[2024-10-04 01:38] VITALS: BP 165/78; O2SAT 96
[2024-10-04 09:15] VITALS: BP 170/76; O2SAT 96
[2024-10-04 18:14] VITALS: BP 122/68
[2024-10-05 00:57] VITALS: BP 150/88; O2SAT 96
[2024-10-05 06:46] LABS: PH,URINE 7.5 (5.0-8.0); URINE APPEARANCE Clear; URINE BILIRRUBIN Negative (NEGATIVE); URINE COLOR Yellow; URINE GLUCOSE Negative (NEGATIVE); URINE KETONE Negative (NEGATIVE); URINE LEUKOCYTE Trace; URINE NITRATE Negative; URINE PROTEIN 30 (NEGATIVE); URINE UROBILINOGEN 0.2 E.U./dl
[2024-10-05 06:50] LABS: URINE BACTERIA 220.3 uL (0.0-1933); URINE EPITHELIAL CELLS 5.2 uL (0.0-38.8); URINE RBC 10.6 uL (0.0-20.8)
[2024-10-05 07:06] LABS: URINE BLOOD TRACES; URINE CAST 0.14 uL (0.0-1.40)
[2024-10-05 09:16] VITALS: BP 164/98; O2SAT 95
[2024-10-05 18:25] VITALS: BP 165/85
[2024-10-05 21:15] LABS: ALBUMIN 2.6 gm/dL (3.4-5.0); CALCIUM 8.8 mg/dL (8.5-10.1); CREATININE SERUM 1.37 mg/dL (0.70-1.30); GFR 52.15; PHOSPHOROUS 3.3 mg/dL (2.5-4.9); POTASSIUM 4.95 mEq/L (3.5-5.1)
[2024-10-06 01:28] VITALS: BP 149/96; O2SAT 95
[2024-10-06] MEDS ORDERED: SODIUM CHLORIDE 0.45 % 1,000 ML IV SCH (08:45)
[2024-10-06] MEDS ORDERED: IRBESARTAN 150 MG TABLET PO SCH (09:00)
[2024-10-06 09:27] LABS: BASO % 0.9 % (0.1-1.2); EOS # 0.92 (0.04-0.54); EOS % 7.1 % (0.7-7.0); HEMATOCRIT 35.5 % (40.1-51.0); HEMOGLOBIN 11.4 g/dL (13.7-17.5); LYMPH % 27.8 % (19.3-53.1); MEAN CORPUSCULAR HEMOGLOBIN 29.1 pg (25.6-32.2); MONO # 1.14 (0.24-0.82); MONO % 8.8 % (4.7-12.5); NEUT # 7.05 (1.56-6.13); NEUT % 54.5 % (34.0-71.1); PLATELET COUNT 435 K/uL (163-369); RED BLOOD COUNT 3.92 M/uL (4.63-6.08)
[2024-10-06 09:28] VITALS: BP 122/92; O2SAT 95
[2024-10-06 13:15] LABS: ALBUMIN 2.7 gm/dL (3.4-5.0); BILIRUBIN TOTAL 0.41 mg/dL (0.3-1.2); CREATININE SERUM 1.1 mg/dL (0.70-1.30); GFR 67.18; GLOBULINA 4.1 G/DL (2.4-3.5); MAGNESIUM 1.9 mg/dL (1.8-2.4); PHOSPHOROUS 3.8 mg/dL (2.5-4.9); POTASSIUM 5.11 mEq/L (3.5-5.1); TOTAL PROTEIN 6.8 gm/dL (6.4-8.2)
[2024-10-06 13:18] LABS: C-REACTIVE PROTEIN 2.21 MG/DL (0.00-0.29)
[2024-10-06] MEDS ORDERED: MEROPENEM 500 MG/VIAL VIAL IV NR (14:00)
[2024-10-06 16:56] VITALS: BP 150/90; O2SAT 97
[2024-10-06] MEDS ORDERED: MEROPENEM 500 MG/VIAL VIAL IV SCH (21:00)
[2024-10-07 02:51] VITALS: BP 138/94; O2SAT 96
[2024-10-07 08:07] VITALS: BP 160/80
[2024-10-07 16:51] VITALS: BP 154/87; O2SAT 97
[2024-10-08 02:20] VITALS: BP 148/86; O2SAT 97
[2024-10-08] MEDS ORDERED: LEVOTHYROXINE SODIUM 50 MCG TABLET PO SCH (06:00)
[2024-10-08] MEDS ORDERED: INSULIN NPH HUM/REG INSULIN HM 1,000 UNIT/10 ML UNITS SUBCUTANEO SCH (08:00)
[2024-10-08 08:40] VITALS: BP 144/87
[2024-10-08 17:52] VITALS: BP 148/50; O2SAT 97
[2024-10-09 00:39] VITALS: BP 135/87; O2SAT 98
[2024-10-09 09:19] LABS: PH,URINE 6.5 (5.0-8.0); URINE APPEARANCE Clear; URINE BILIRRUBIN Negative (NEGATIVE); URINE BLOOD Negative; URINE COLOR Yellow; URINE GLUCOSE Negative (NEGATIVE); URINE KETONE Negative (NEGATIVE); URINE LEUKOCYTE Negative; URINE NITRATE Negative; URINE PROTEIN 30 (NEGATIVE); URINE UROBILINOGEN 0.2 E.U./dl
[2024-10-09 09:20] LABS: URINE BACTERIA 94.2 uL (0.0-1933); URINE RBC 16.6 uL (0.0-20.8); URINE WBC 2.3 uL (0.0-23.2)
[2024-10-09 09:39] LABS: URINE EPITHELIAL CELLS 0.4 uL (0.0-38.8)
[2024-10-09 09:47] VITALS: BP 140/80
[2024-10-09 18:29] VITALS: BP 126/76; O2SAT 97
[2024-10-10 01:17] VITALS: BP 146/71; O2SAT 97
[2024-10-10] MEDS ORDERED: INSULIN NPH HUM/REG INSULIN HM 1,000 UNIT/10 ML UNITS SUBCUTANEO SCH (08:00)
[2024-10-10 10:06] VITALS: BP 134/82; O2SAT 98
[2024-10-10 16:25] VITALS: BP 146/88; O2SAT 96
[2024-10-11 01:17] VITALS: BP 141/81; O2SAT 98
[2024-10-11 09:50] VITALS: BP 146/74; O2SAT 97
[2024-10-11 17:18] VITALS: BP 137/72; O2SAT 99
[2024-10-12 00:12] VITALS: BP 153/84; O2SAT 95
[2024-10-12 08:24] VITALS: BP 150/80
[2024-10-12 18:04] VITALS: BP 135/77
[2024-10-12 18:57] LABS: PH,URINE 6.5 (5.0-8.0); URINE APPEARANCE Clear; URINE BILIRRUBIN Negative (NEGATIVE); URINE BLOOD Negative; URINE COLOR Yellow; URINE GLUCOSE Negative (NEGATIVE); URINE KETONE Negative (NEGATIVE); URINE LEUKOCYTE Negative; URINE NITRATE Negative; URINE PROTEIN 30 (NEGATIVE); URINE UROBILINOGEN 0.2 E.U./dl
[2024-10-12 19:02] LABS: URINE BACTERIA 20.7 uL (0.0-1933); URINE RBC 7.6 uL (0.0-20.8); URINE WBC 4.2 uL (0.0-23.2)
[2024-10-12 19:13] LABS: URINE CAST 0.14 uL (0.0-1.40); URINE EPITHELIAL CELLS 0.3 uL (0.0-38.8)
[2024-10-12] MEDS ORDERED: MEROPENEM 1,000 MG VIAL IV SCH (21:00)
[2024-10-13 00:39] VITALS: BP 121/86; O2SAT 98
[2024-10-13 08:31] VITALS: BP 152/82; O2SAT 98
[2024-10-13 09:12] LABS: BASO % 1.2 % (0.1-1.2); EOS # 0.49 (0.04-0.54); EOS % 4.5 % (0.7-7.0); HEMATOCRIT 35.1 % (40.1-51.0); HEMOGLOBIN 11.2 g/dL (13.7-17.5); LYMPH # 3.08 (1.18-3.74); MEAN CORPUSCULAR HEMOGLOBIN 28.9 pg (25.6-32.2); MONO % 9.1 % (4.7-12.5); NEUT # 6.27 (1.56-6.13); NEUT % 56.8 % (34.0-71.1); PLATELET COUNT 406 K/uL (163-369); RED BLOOD COUNT 3.87 M/uL (4.63-6.08); RED CELL DISTRIBUTION WIDTH 14.7 % (11.6-14.4)
[2024-10-13 09:51] LABS: ALBUMIN 2.8 gm/dL (3.4-5.0); BILIRUBIN TOTAL 0.46 mg/dL (0.3-1.2); CALCIUM 8.9 mg/dL (8.5-10.1); CREATININE SERUM 0.98 mg/dL (0.70-1.30); GFR 76.76; GLOBULINA 3.8 G/DL (2.4-3.5); MAGNESIUM 1.9 mg/dL (1.8-2.4); PHOSPHOROUS 3.3 mg/dL (2.5-4.9); POTASSIUM 4.73 mEq/L (3.5-5.1); TOTAL PROTEIN 6.6 gm/dL (6.4-8.2)
[2024-10-13 09:53] LABS: C-REACTIVE PROTEIN 0.81 MG/DL (0.00-0.29)
[2024-10-13] MEDS ORDERED: TAMS0.4C PO (13:51)
[2024-10-13] MEDS ORDERED: ELIQUIS5 MG PO (13:51)
[2024-10-13] MEDS ORDERED: AVAPRO150 MG PO (13:52)
[2024-10-13] MEDS ORDERED: CARVEDILOL3.125 MG PO (13:52)
[2024-10-13] MEDS ORDERED: LEVOTHYROXINE50 MCG PO (13:53)
== END 2024-10-13 15:10 | disposition home or self-care (01) | DRG 728 ==
LOC: ER 12:29 → MEDI 21:45 → MEDJ 10-02 15:37
PROVIDERS: General Practice; Internal Medicine Infectious Disease; Internal Medicine Nephrology; ADMIT Internal Medicine; ATTEND Internal Medicine
PROC: BV49ZZZ Ultrasonography of Prostate and Seminal Vesicles (ICD-10-PCS; principal; 2024-09-30)
PROC: 02HV33Z Insertion of Infusion Device into Superior Vena Cava, Percutaneous Approach (ICD-10-PCS; 2024-10-08)
DX: N45.1 Epididymitis (principal); R65.10 Systemic inflammatory response syndrome (SIRS) of non-infectious origin without acute organ dysfunction; N17.9 Acute kidney failure, unspecified; N39.0 Urinary tract infection, site not specified; I10 Essential (primary) hypertension; E11.9 Type 2 diabetes mellitus without complications; Z79.4 Long term (current) use of insulin; E03.9 Hypothyroidism, unspecified; I48.91 Unspecified atrial fibrillation; D64.9 Anemia, unspecified; L97.529 Non-pressure chronic ulcer of other part of left foot with unspecified severity; L97.519 Non-pressure chronic ulcer of other part of right foot with unspecified severity; I50.9 Heart failure, unspecified; I25.10 Atherosclerotic heart disease of native coronary artery without angina pectoris; B96.5 Pseudomonas (aeruginosa) (mallei) (pseudomallei) as the cause of diseases classified elsewhere

== ENCOUNTER 2024-11-19 11:36 | Emergency (ER) | payer OTHER ==
[~2024-11-19] VITALS: Ht 330.2 cm; Wt 127.0 kg
[~2024-11-19 11:36] MED LIST changes: +LEVOTHYROXINE50 MCG PO
[2024-11-19 13:06] LABS: BASO % 1.3 % (0.1-1.2); EOS # 0.82 (0.04-0.54); EOS % 7.9 % (0.7-7.0); LYMPH # 2.64 (1.18-3.74); LYMPH % 25.6 % (19.3-53.1); MEAN PLATELET VOLUME 10.80 fl (9.4-12.4); MONO # 0.75 (0.24-0.82); MONO % 7.3 % (4.7-12.5); NEUT # 5.95 (1.56-6.13); NEUT % 57.5 % (34.0-71.1); RED CELL DISTRIBUTION WIDTH 15.3 % (11.6-14.4)
[2024-11-19 13:50] LABS: BUN CREA RATIO 18.0 (7.0-25.0); CREATININE SERUM 1.36 mg/dL (0.70-1.30); GFR 52.59; GLUCOSE FASTING 191.0 mg/dL (65-100); OSMOLALITY SERUM 285.0 MOSM/KG (275-295)
[2024-11-19 14:11] LABS: ABG PH 7.405 (7.35-7.45); ABG PO2 139.8 mmHg (80-100); BICARBONATE 22.6 mmol/l (23-25); o2 32 %
[2024-11-19 14:19] LABS: COVID-19 AG NEGATIVE (NEGATIVE)
[2024-11-19 14:58] VITALS: BP 160/80; O2SAT 97
[2024-11-19 21:38] LABS: URINE APPEARANCE Clear; URINE BILIRRUBIN Negative (NEGATIVE); URINE COLOR Yellow; URINE GLUCOSE Negative (NEGATIVE); URINE KETONE Negative (NEGATIVE); URINE LEUKOCYTE Small; URINE NITRATE Negative; URINE UROBILINOGEN 0.2 E.U./dl
[2024-11-19 21:42] LABS: URINE BACTERIA 444.0 uL (0.0-1933); URINE EPITHELIAL CELLS 5.5 uL (0.0-38.8); URINE RBC 14.6 uL (0.0-20.8); URINE WBC 67.9 uL (0.0-23.2)
[2024-11-19 21:43] LABS: URINE CAST 0.00 uL (0.0-1.40); URINE PROTEIN 100 (NEGATIVE)
[2024-11-19 21:44] LABS: URINE BLOOD TRACE
[2024-11-20] MEDS ORDERED: 0.9 % SODIUM CHLORIDE 1,000 ML IV SCH (09:00)
== END 2024-11-20 01:20 | disposition home or self-care (01) ==
LOC: ER 11:58
PROVIDERS: Emergency Medicine
DX: J81.1 Chronic pulmonary edema (principal); I51.7 Cardiomegaly; I25.10 Atherosclerotic heart disease of native coronary artery without angina pectoris; J90 Pleural effusion, not elsewhere classified; E11.9 Type 2 diabetes mellitus without complications; Z79.4 Long term (current) use of insulin; I50.9 Heart failure, unspecified; Z88.2 Allergy status to sulfonamides; Z88.8 Allergy status to other drugs, medicaments and biological substances; Z20.822 Contact with and (suspected) exposure to COVID-19
CPT/HCPCS: 36415; 71045; 71250; 82803; 96365; 99284; J3490

== ENCOUNTER 2024-11-23 12:46 | Emergency (ER) | payer OTHER ==
[~2024-11-23] VITALS: Ht 172.7 cm; Wt 149.7 kg
[2024-11-23] MEDS ORDERED: LEVALBUTEROL HCL 1.25 MG/3 ML SOLUTION IH ONE (13:30)
[2024-11-23] MEDS ORDERED: ASPIRIN 325 MG TABLET PO ONE (13:30)
[2024-11-23 13:51] LABS: BASO % 1.4 % (0.1-1.2); EOS # 1.06 (0.04-0.54); EOS % 10.5 % (0.7-7.0); LYMPH # 2.76 (1.18-3.74); LYMPH % 27.3 % (19.3-53.1); MEAN PLATELET VOLUME 10.50 fl (9.4-12.4); MONO # 0.91 (0.24-0.82); MONO % 9.0 % (4.7-12.5); NEUT # 5.23 (1.56-6.13); NEUT % 51.6 % (34.0-71.1); RED CELL DISTRIBUTION WIDTH 15.1 % (11.6-14.4)
[2024-11-23 14:14] LABS: ABG PH 7.410 (7.35-7.45); ABG PO2 99.1 mmHg (80-100); BICARBONATE 24.7 mmol/l (23-25)
[2024-11-23 14:33] LABS: o2 21 %
== END 2024-11-23 16:58 | disposition home or self-care (01) ==
LOC: ER 12:46
PROVIDERS: General Practice
DX: F41.1 Generalized anxiety disorder (principal); I10 Essential (primary) hypertension; E11.9 Type 2 diabetes mellitus without complications; Z79.4 Long term (current) use of insulin; Z88.1 Allergy status to other antibiotic agents; Z88.2 Allergy status to sulfonamides; Z91.041 Radiographic dye allergy status

== ENCOUNTER 2024-11-27 22:10 | Emergency (ER) | payer OTHER ==
[~2024-11-27] VITALS: Ht 172.7 cm; Wt 149.7 kg
[2024-11-27 22:52] LABS: BASO % 1.1 % (0.1-1.2); EOS # 1.16 (0.04-0.54); EOS % 9.9 % (0.7-7.0); LYMPH # 3.07 (1.18-3.74); LYMPH % 26.3 % (19.3-53.1); MEAN PLATELET VOLUME 10.80 fl (9.4-12.4); MONO # 1.05 (0.24-0.82); MONO % 9.0 % (4.7-12.5); NEUT # 6.23 (1.56-6.13); NEUT % 53.4 % (34.0-71.1); RED CELL DISTRIBUTION WIDTH 15.0 % (11.6-14.4)
[2024-11-27 23:08] LABS: BUN CREA RATIO 15.0 (7.0-25.0); CREATININE SERUM 1.55 mg/dL (0.70-1.30); GFR 45.22; GLUCOSE FASTING 140.0 mg/dL (65-100); OSMOLALITY SERUM 282.0 MOSM/KG (275-295)
[2024-11-28 00:26] LABS: COVID-19 AG NEGATIVE (NEGATIVE)
[2024-11-28 03:36] LABS: URINE APPEARANCE Clear; URINE BILIRRUBIN Negative (NEGATIVE); URINE BLOOD Negative; URINE COLOR Yellow; URINE GLUCOSE Negative (NEGATIVE); URINE KETONE Negative (NEGATIVE); URINE LEUKOCYTE Negative; URINE NITRATE Negative; URINE PROTEIN 30 (NEGATIVE); URINE UROBILINOGEN 0.2 E.U./dl
[2024-11-28 03:39] LABS: URINE BACTERIA 46.7 uL (0.0-1933); URINE WBC 1.8 uL (0.0-23.2)
[2024-11-28 04:01] LABS: URINE CAST 0.00 uL (0.0-1.40); URINE EPITHELIAL CELLS 0.7 uL (0.0-38.8); URINE RBC 1.1 uL (0.0-20.8)
== END 2024-11-28 08:56 | disposition home or self-care (01) ==
LOC: ER 22:10
PROVIDERS: Emergency Medicine
DX: I10 Essential (primary) hypertension (principal); R60.0 Localized edema; Z20.822 Contact with and (suspected) exposure to COVID-19; Z88.1 Allergy status to other antibiotic agents; Z88.2 Allergy status to sulfonamides; Z91.041 Radiographic dye allergy status

== ENCOUNTER 2024-12-11 15:11 | Emergency (ER) | payer OTHER ==
[~2024-12-11] VITALS: Ht 177.8 cm; Wt 158.8 kg
[2024-12-11 16:55] LABS: BASO % 0.8 % (0.1-1.2); EOS # 0.76 (0.04-0.54); EOS % 7.1 % (0.7-7.0); LYMPH # 3.17 (1.18-3.74); LYMPH % 29.8 % (19.3-53.1); MEAN PLATELET VOLUME 10.90 fl (9.4-12.4); MONO # 1.02 (0.24-0.82); MONO % 9.6 % (4.7-12.5); NEUT # 5.59 (1.56-6.13); NEUT % 52.5 % (34.0-71.1); RED CELL DISTRIBUTION WIDTH 14.9 % (11.6-14.4)
[2024-12-11 16:58] LABS: ERYTHROCYTE SEDIMENTATION RATE 48 mm/hr (0-20)
[2024-12-11 17:29] LABS: ALT/SGPT 18 U/L (12-78); AST/SGOT 14 U/L (15-37); BILIRUBIN TOTAL 0.61 mg/dL (0.3-1.2); BUN CREA RATIO 17 (7.0-25.0); CREATININE SERUM 1.55 mg/dL (0.70-1.30); GFR 45.22; GLOBULINA 4.1 G/DL (2.4-3.5); GLUCOSE FASTING 124 mg/dL (65-100); OSMOLALITY SERUM 286 MOSM/KG (275-295)
[2024-12-11] MEDS ORDERED: PEPCID AC20 MG PO (20:07)
[2024-12-11] MEDS ORDERED: CEFUROXIME500 MG PO (20:07)
== END 2024-12-12 00:17 | disposition home or self-care (01) ==
LOC: ER 15:11
PROVIDERS: General Practice
DX: E11.622 Type 2 diabetes mellitus with other skin ulcer (principal); L97.818 Non-pressure chronic ulcer of other part of right lower leg with other specified severity; Z79.4 Long term (current) use of insulin; Z88.2 Allergy status to sulfonamides; Z91.041 Radiographic dye allergy status; Z88.1 Allergy status to other antibiotic agents; L97.318 Non-pressure chronic ulcer of right ankle with other specified severity; I48.91 Unspecified atrial fibrillation; E11.42 Type 2 diabetes mellitus with diabetic polyneuropathy; M77.31 Calcaneal spur, right foot

== ENCOUNTER 2025-01-04 20:35 | Emergency (ER) | payer OTHER ==
[~2025-01-04] VITALS: Ht 175.3 cm; Wt 163.3 kg
[~2025-01-04 20:35] MED LIST changes: +PEPCID AC20 MG PO
[2025-01-04] MEDS ORDERED: LABETALOL HCL 200 MG/40 ML VIAL IV ONE (21:00)
[2025-01-04] MEDS ORDERED: LABETALOL HCL 100 MG/20 ML ML ONE (21:09)
[2025-01-04 21:55] LABS: BASO % 1.0 % (0.1-1.2); EOS # 0.96 (0.04-0.54); EOS % 9.0 % (0.7-7.0); LYMPH # 3.15 (1.18-3.74); LYMPH % 29.7 % (19.3-53.1); MEAN PLATELET VOLUME 11.00 fl (9.4-12.4); MONO # 0.87 (0.24-0.82); MONO % 8.2 % (4.7-12.5); NEUT # 5.47 (1.56-6.13); NEUT % 51.6 % (34.0-71.1); RED CELL DISTRIBUTION WIDTH 14.7 % (11.6-14.4); URINE APPEARANCE Clear; URINE BILIRRUBIN Negative (NEGATIVE); URINE BLOOD Trace; URINE COLOR Yellow; URINE GLUCOSE Negative (NEGATIVE); URINE KETONE Negative (NEGATIVE); URINE LEUKOCYTE Negative; URINE NITRATE Negative; URINE UROBILINOGEN 0.2 E.U./dl
[2025-01-04 21:59] LABS: URINE RBC 8.2 uL (0.0-20.8); URINE WBC 2.0 uL (0.0-23.2)
[2025-01-04 22:13] LABS: URINE BACTERIA 3.5 uL (0.0-1933); URINE CAST 0.29 uL (0.0-1.40); URINE EPITHELIAL CELLS 1.0 uL (0.0-38.8); URINE PROTEIN 300 (NEGATIVE)
[2025-01-04] MEDS ORDERED: NIFEDIPINE 10 MG CAPSULE PO ONE (22:47)
[2025-01-04] MEDS ORDERED: NIFEDIPINE 20 MG CAPSULE PO ONE (23:00)
[2025-01-04 23:36] LABS: INR 1.18
[2025-01-04 23:42] LABS: ALT/SGPT 31.0 U/L (12-78); AST/SGOT 15.0 U/L (15-37); BILIRUBIN TOTAL 0.73 mg/dL (0.3-1.2); BUN CREA RATIO 15.0 (7.0-25.0); CREATININE SERUM 1.34 mg/dL (0.70-1.30); GFR 53.5; GLOBULINA 3.8 G/DL (2.4-3.5); GLUCOSE FASTING 186.0 mg/dL (65-100); OSMOLALITY SERUM 287.0 MOSM/KG (275-295)
== END 2025-01-05 08:23 | disposition home or self-care (01) ==
LOC: ER 20:35
PROVIDERS: General Practice
DX: R07.89 Other chest pain (principal); I10 Essential (primary) hypertension; E03.8 Other specified hypothyroidism; E11.9 Type 2 diabetes mellitus without complications; Z79.4 Long term (current) use of insulin; Z88.1 Allergy status to other antibiotic agents; Z88.2 Allergy status to sulfonamides; Z91.041 Radiographic dye allergy status
CPT/HCPCS: 36415; 51702; 71045; 93005; 96365; 99283; J3490

== ENCOUNTER 2025-01-23 09:58 | Emergency (ER) | payer OTHER ==
[~2025-01-23] VITALS: Ht 172.7 cm; Wt 154.2 kg
[~2025-01-23 09:58] MED LIST changes: +BENZONATATE100 MG PO; +FAMOTIDINE20 MG PO; +LEVOTHYROXINE75 MCG PO; +PROTEINEX-18 LI30 ML PO; +QC TUSSIN DM 2237 ML PO; +VANCOMYCIN HCL125 MG PO
[2025-01-23] MEDS ORDERED: ONDANSETRON HCL 2 MG/ML VIAL IV ONE (12:30)
[2025-01-23] MEDS ORDERED: INSULIN REGULAR, HUMAN 1,000 UNIT/10 ML UNITS IV ONE (12:30)
[2025-01-23] MEDS ORDERED: ONDANSETRON HCL 2 MG/ML VIAL ONE (12:32)
[2025-01-23 13:02] LABS: BASO % 0.7 % (0.1-1.2); EOS # 0.20 (0.04-0.54); EOS % 1.6 % (0.7-7.0); LYMPH # 2.22 (1.18-3.74); LYMPH % 17.3 % (19.3-53.1); MEAN PLATELET VOLUME 10.80 fl (9.4-12.4); MONO # 0.96 (0.24-0.82); MONO % 7.5 % (4.7-12.5); NEUT # 9.31 (1.56-6.13); NEUT % 72.4 % (34.0-71.1); RED CELL DISTRIBUTION WIDTH 14.2 % (11.6-14.4)
[2025-01-23 13:11] LABS: URINE APPEARANCE Clear; URINE BILIRRUBIN Negative (NEGATIVE); URINE BLOOD Small; URINE COLOR Yellow; URINE GLUCOSE Negative (NEGATIVE); URINE KETONE Negative (NEGATIVE); URINE LEUKOCYTE Trace; URINE NITRATE Negative; URINE UROBILINOGEN 0.2 E.U./dl
[2025-01-23 13:12] LABS: URINE BACTERIA 14.3 uL (0.0-1933); URINE EPITHELIAL CELLS 4.6 uL (0.0-38.8); URINE RBC 2.3 uL (0.0-20.8); URINE WBC 10.1 uL (0.0-23.2)
[2025-01-23 13:17] LABS: URINE CAST 0.00 uL (0.0-1.40); URINE PROTEIN 100 (NEGATIVE)
[2025-01-23 13:39] LABS: ALT/SGPT 68.0 U/L (12-78); AST/SGOT 41.0 U/L (15-37); BILIRUBIN TOTAL 0.86 mg/dL (0.3-1.2); BUN CREA RATIO 18.0 (7.0-25.0); CREATININE SERUM 1.42 mg/dL (0.70-1.30); GFR 49.88; GLOBULINA 3.8 G/DL (2.4-3.5); GLUCOSE FASTING 175.0 mg/dL (65-100); OSMOLALITY SERUM 284.0 MOSM/KG (275-295)
[2025-01-23] MEDS ORDERED: GUAIFEN/DEXTROMETHORPHAN/PE 10 ML BLIST.PACK PO ONE ×2 (15:43→15:45)
== END 2025-01-23 19:03 | disposition home or self-care (01) ==
LOC: ER 09:58
PROVIDERS: Emergency Medicine
DX: I10 Essential (primary) hypertension (principal); E03.8 Other specified hypothyroidism; E11.9 Type 2 diabetes mellitus without complications; Z79.4 Long term (current) use of insulin; Z88.2 Allergy status to sulfonamides; Z88.3 Allergy status to other anti-infective agents; Z91.041 Radiographic dye allergy status
CPT/HCPCS: 36415; 96365; 99282; J1815; J2405

== ENCOUNTER 2025-03-31 13:06 | Inpatient (IN) | payer OTHER ==
[~2025-03-31] VITALS: Ht 172.7 cm; Wt 158.8 kg
[~2025-03-31 13:06] MED LIST changes: +AMLODIPINE BESYL5 MG PO; +ISOSORBIDE DINI20 MG PO; +LASIX40 MG PO; +LIPITOR40 M1 PO; +ZINC OXIDE TOP
--- NOTE | 2025-03-31 13:32 | NUR ---
SE RECIBE PTE ALERTA Y ORIENTADO X3 EN AMBULANCIA EN COMPANIA DE FAMILAIR. EL MIMSMO REFIERE CELLULITIS EN HARDIK PATRICK. SE MIDEN S/V Y SE UBICA.
[2025-03-31] MEDS ORDERED: 0.9 % SODIUM CHLORIDE 1,000 ML IV SCH ×2 (14:15→21:45)
[2025-03-31] MEDS ORDERED: PIPERACILLIN/TAZOBACTAM SODIUM 3.375 GM VIAL IV ONE (14:15)
[2025-03-31] MEDS ORDERED: VANCOMYCIN HCL 1,000 MG VIAL IV ONE (14:15)
[2025-03-31] MEDS ORDERED: FAMOTIDINE/PF 20 MG/2 ML VIAL IV ONE (14:15)
[2025-03-31 14:38] LABS: BASO % 0.8 % (0.1-1.2); EOS # 0.82 (0.04-0.54); EOS % 7.9 % (0.7-7.0); LYMPH # 1.93 (1.18-3.74); LYMPH % 18.7 % (19.3-53.1); MEAN PLATELET VOLUME 10.60 fl (9.4-12.4); MONO # 0.93 (0.24-0.82); MONO % 9.0 % (4.7-12.5); NEUT # 6.52 (1.56-6.13); NEUT % 63.1 % (34.0-71.1); RED CELL DISTRIBUTION WIDTH 14.5 % (11.6-14.4)
[2025-03-31 14:48] LABS: ERYTHROCYTE SEDIMENTATION RATE 73 mm/hr (0-20)
[2025-03-31 14:54] LABS: URINE APPEARANCE Clear; URINE BILIRRUBIN Negative (NEGATIVE); URINE BLOOD Negative; URINE COLOR Yellow; URINE GLUCOSE Negative (NEGATIVE); URINE KETONE Negative (NEGATIVE); URINE LEUKOCYTE Negative; URINE NITRATE Negative; URINE PROTEIN 30 (NEGATIVE); URINE UROBILINOGEN 0.2 E.U./dl
--- NOTE | 2025-03-31 14:55 | NUR ---
PTE EVALUADO POR AL DRA. DEJESUS. SE ORIENTA SOBRE TRATAMIENTO, VERBALIZA ENETDNER. SE CANALZIA, COLECTA MUESTRAS DE LAB Y SE ADMINISTRA MEDICAMENTO ANTHONY ORDEN MEDICA BAJO MEDIDAS ASEPTICAS. SE NOTIFCA XRAY.
[2025-03-31 14:58] LABS: URINE RBC 3.2 uL (0.0-20.8)
[2025-03-31 15:53] LABS: ALT/SGPT 21.0 U/L (12-78); AST/SGOT 11.0 U/L (15-37); BILIRUBIN TOTAL 0.71 mg/dL (0.3-1.2); BUN CREA RATIO 17.0 (7.0-25.0); CREATININE SERUM 1.26 mg/dL (0.70-1.30); GFR 57.26; GLOBULINA 3.4 G/DL (2.4-3.5)
[2025-03-31 15:57] LABS: OSMOLALITY SERUM 285.0 MOSM/KG (275-295)
[2025-03-31 15:58] LABS: GLUCOSE FASTING 217.0 mg/dL (65-100)
[2025-03-31 16:11] LABS: URINE BACTERIA 0 uL (0.0-1933); URINE CAST 0.00 uL (0.0-1.40); URINE EPITHELIAL CELLS 0.6 uL (0.0-38.8); URINE WBC 0.6 uL (0.0-23.2)
--- NOTE | 2025-03-31 16:21 | NUR ---
SE LE COLOCA PANAL A PETICION DE PTE.AL MOMENTO DE LA ASCENCION SIN FAMILIAR,EN CAMA CON BARANDAS ELEVADAS.
[2025-03-31] MEDS ORDERED: VANCOMYCIN HCL 1,000 MG VIAL IV SCH (21:23)
[2025-03-31] MEDS ORDERED: FAMOTIDINE/PF 20 MG in 0.9 % SODIUM CHLORIDE 100 ML IV SCH (21:24)
[2025-03-31] MEDS ORDERED: AMPICILLIN SODIUM/SULBACTAM NA 1,500 MG VIAL IV SCH (21:24)
[2025-03-31] MEDS ORDERED: DEXTROSE 50 % IN WATER 0.5 G/ML DISP.SYRIN IV PRN (21:30)
[2025-03-31] MEDS ORDERED: INSULIN LISPRO 1,000 UNIT/10 ML UNITS SUBCUTANEO PRN (21:30)
[2025-03-31 23:00] VITALS: BP 116/75; O2SAT 100
[2025-04-01] MEDS ORDERED: ACETAMINOPHEN 500 MG GEL..CAP PO SCH (02:00)
[2025-04-01 03:33] VITALS: BP 147/78; O2SAT 98
[2025-04-01] MEDS ORDERED: APIXABAN 5 MG TABLET PO SCH ×2 (05:52→09:00)
[2025-04-01 08:07] LABS: BASO % 0.6 % (0.1-1.2); EOS # 0.51 (0.04-0.54); EOS % 5.4 % (0.7-7.0); LYMPH # 1.78 (1.18-3.74); LYMPH % 19.0 % (19.3-53.1); MEAN PLATELET VOLUME 11.40 fl (9.4-12.4); MONO # 0.96 (0.24-0.82); MONO % 10.2 % (4.7-12.5); NEUT # 6.05 (1.56-6.13); NEUT % 64.5 % (34.0-71.1); RED CELL DISTRIBUTION WIDTH 14.4 % (11.6-14.4)
[2025-04-01 08:31] LABS: INR 1.15
[2025-04-01 08:32] VITALS: BP 140/78; O2SAT 97
[2025-04-01 08:45] LABS: BUN CREA RATIO 16.0 (7.0-25.0); CREATININE SERUM 0.99 mg/dL (0.70-1.30); GFR 75.63; GLUCOSE FASTING 127.0 mg/dL (65-100); OSMOLALITY SERUM 282.0 MOSM/KG (275-295)
[2025-04-01] MEDS ORDERED: AMLODIPINE BESYLATE 5 MG TABLET PO SCH (09:00)
[2025-04-01] MEDS ORDERED: AMIODARONE HCL 200 MG TABLET PO SCH (09:00)
[2025-04-01] MEDS ORDERED: SERTRALINE HCL 50 MG TABLET PO SCH (09:00)
[2025-04-01] MEDS ORDERED: LACTOBACILLUS ACIDOPHILUS 1 CAP CAP PO SCH (09:00)
[2025-04-01] MEDS ORDERED: IRBESARTAN 150 MG TABLET PO SCH (09:00)
[2025-04-01] MEDS ORDERED: LEVOTHYROXINE SODIUM 50 MCG TABLET PO SCH (09:00)
[2025-04-01] MEDS ORDERED: INSULIN NPH HUM/REG INSULIN HM 1,000 UNIT/10 ML UNITS SUBCUTANEO SCH ×2 (09:00→17:00)
[2025-04-01] MEDS ORDERED: VANCOMYCIN HCL 5 MG/ML REDILUIDO IV NR (10:30)
[2025-04-01 16:43] VITALS: BP 127/77; O2SAT 99
[2025-04-02 01:13] VITALS: BP 148/83; O2SAT 99
[2025-04-02] MEDS ORDERED: LEVOTHYROXINE SODIUM 50 MCG TABLET PO SCH (05:00)
[2025-04-02] MEDS ORDERED: LEVOTHYROXINE SODIUM 75 MCG TABLET PO SCH (06:00)
[2025-04-02] MEDS ORDERED: AMPICILLIN SODIUM/SULBACTAM NA 3,000 MG VIAL IV SCH (09:00)
[2025-04-02] MEDS ORDERED: VANCOMYCIN HCL 5 MG/ML REDILUIDO IV SCH (09:00)
[2025-04-02 09:13] VITALS: BP 158/86; O2SAT 98
[2025-04-02] MEDS ORDERED: LINEZOLID 600 MG TABLET PO SCH (17:00)
[2025-04-02 17:29] VITALS: BP 148/82; O2SAT 96
[2025-04-02] MEDS ORDERED: MEROPENEM 500 MG/VIAL VIAL IV SCH (20:00)
[2025-04-03 03:16] VITALS: BP 127/83; O2SAT 99
[2025-04-03 09:00] VITALS: BP 144/89; O2SAT 98
[2025-04-03 17:04] VITALS: BP 154/85
[2025-04-04 03:31] VITALS: BP 141/84; O2SAT 97
[2025-04-04] MEDS ORDERED: LEVOTHYROXINE SODIUM 88 MCG TABLET PO SCH (06:00)
[2025-04-04] MEDS ORDERED: INSULIN NPH HUM/REG INSULIN HM 1,000 UNIT/10 ML UNITS SUBCUTANEO SCH (09:00)
[2025-04-04 11:18] VITALS: BP 147/80; O2SAT 99
[2025-04-05 02:16] VITALS: BP 143/87; O2SAT 99
[2025-04-05] MEDS ORDERED: INSULIN NPH HUM/REG INSULIN HM 1,000 UNIT/10 ML UNITS SUBCUTANEO SCH (08:00)
[2025-04-05 09:08] VITALS: BP 113/68; O2SAT 99
[2025-04-05 21:16] VITALS: BP 149/87
[2025-04-06 03:59] VITALS: BP 136/83; O2SAT 96
[2025-04-06 08:00] VITALS: BP 126/77; O2SAT 99
[2025-04-06 09:15] LABS: BASO % 1.1 % (0.1-1.2); EOS # 0.71 (0.04-0.54); EOS % 7.7 % (0.7-7.0); LYMPH # 2.31 (1.18-3.74); LYMPH % 25.1 % (19.3-53.1); MEAN PLATELET VOLUME 10.70 fl (9.4-12.4); MONO # 1.04 (0.24-0.82); MONO % 11.3 % (4.7-12.5); NEUT # 4.99 (1.56-6.13); NEUT % 54.4 % (34.0-71.1); RED CELL DISTRIBUTION WIDTH 14.3 % (11.6-14.4)
[2025-04-06 09:50] LABS: ALT/SGPT 67.0 U/L (12-78); AST/SGOT 66.0 U/L (15-37); BILIRUBIN TOTAL 0.49 mg/dL (0.3-1.2); BUN CREA RATIO 15.0 (7.0-25.0); CREATININE SERUM 1.09 mg/dL (0.70-1.30); GFR 67.68; GLOBULINA 3.8 G/DL (2.4-3.5); GLUCOSE FASTING 178.0 mg/dL (65-100); OSMOLALITY SERUM 283.0 MOSM/KG (275-295)
[2025-04-06 18:58] VITALS: BP 150/82; O2SAT 99
[2025-04-07 02:43] VITALS: BP 144/81; O2SAT 100
[2025-04-07 08:00] VITALS: BP 127/72; O2SAT 95
[2025-04-07] MEDS ORDERED: INSULIN NPH HUM/REG INSULIN HM 1,000 UNIT/10 ML UNITS SUBCUTANEO SCH (08:00)
[2025-04-07] MEDS ORDERED: AMINO ACIDS 1 EACH TABLET PO SCH (09:00)
[2025-04-07 18:18] VITALS: BP 143/92
[2025-04-08 03:02] VITALS: BP 130/82; O2SAT 98
[2025-04-08] MEDS ORDERED: INSULIN NPH HUM/REG INSULIN HM 1,000 UNIT/10 ML UNITS SUBCUTANEO SCH (08:00)
[2025-04-08 09:17] VITALS: BP 138/91; O2SAT 99
[2025-04-08 19:07] VITALS: BP 133/70
[2025-04-09 02:51] VITALS: BP 130/72; O2SAT 98
[2025-04-09 07:32] LABS: BASO % 1.0 % (0.1-1.2); EOS # 0.60 (0.04-0.54); EOS % 7.3 % (0.7-7.0); LYMPH # 2.30 (1.18-3.74); LYMPH % 28.2 % (19.3-53.1); MEAN PLATELET VOLUME 10.40 fl (9.4-12.4); MONO # 0.95 (0.24-0.82); MONO % 11.6 % (4.7-12.5); NEUT # 4.22 (1.56-6.13); NEUT % 51.7 % (34.0-71.1); RED CELL DISTRIBUTION WIDTH 14.4 % (11.6-14.4)
[2025-04-09 07:53] LABS: ERYTHROCYTE SEDIMENTATION RATE 67 mm/hr (0-20)
[2025-04-09 07:56] LABS: ALT/SGPT 60.0 U/L (12-78); AST/SGOT 47.0 U/L (15-37); BILIRUBIN TOTAL 0.44 mg/dL (0.3-1.2); BUN CREA RATIO 20.0 (7.0-25.0); CREATININE SERUM 1.23 mg/dL (0.70-1.30); GFR 58.87; GLOBULINA 3.5 G/DL (2.4-3.5); GLUCOSE FASTING 173.0 mg/dL (65-100); OSMOLALITY SERUM 288.0 MOSM/KG (275-295)
[2025-04-09 09:03] VITALS: BP 157/90; O2SAT 97
[2025-04-09] MEDS ORDERED: INSULIN NPH HUM/REG INSULIN HM 1,000 UNIT/10 ML UNITS SUBCUTANEO SCH (17:00)
[2025-04-09 19:07] VITALS: BP 151/81; O2SAT 100
[2025-04-10 02:57] VITALS: BP 164/80; O2SAT 99
[2025-04-10] MEDS ORDERED: INSULIN NPH HUM/REG INSULIN HM 1,000 UNIT/10 ML UNITS SUBCUTANEO SCH (08:00)
[2025-04-10 09:40] VITALS: BP 142/78; O2SAT 100
[2025-04-10 18:09] VITALS: BP 147/84; O2SAT 97
[2025-04-11 02:28] VITALS: BP 124/75; O2SAT 99
[2025-04-11 09:38] VITALS: BP 139/86; O2SAT 99
[2025-04-11] MEDS ORDERED: INSULIN NPH HUM/REG INSULIN HM 1,000 UNIT/10 ML UNITS SUBCUTANEO SCH (17:00)
[2025-04-11 18:31] VITALS: BP 136/82; O2SAT 98
[2025-04-12 03:55] VITALS: BP 136/90; O2SAT 98
[2025-04-12 11:30] VITALS: BP 121/74; BP 135/76; O2SAT 98; O2SAT 989
[2025-04-12 16:28] VITALS: BP 149/88; O2SAT 100
== END 2025-04-12 17:19 | disposition home or self-care (01) | DRG 580 ==
LOC: ER 13:06 → MEDI 21:38 → MEDJ 04-04 15:53
PROVIDERS: Internal Medicine Infectious Disease; Student in an Organized Health Care Education/Training Program; ADMIT Internal Medicine; ATTEND Internal Medicine
PROC: 0JBN3ZZ Excision of Right Lower Leg Subcutaneous Tissue and Fascia, Percutaneous Approach (ICD-10-PCS; 2025-04-02)
PROC: 02HV33Z Insertion of Infusion Device into Superior Vena Cava, Percutaneous Approach (ICD-10-PCS; 2025-04-02)
PROC: 0JBP3ZZ Excision of Left Lower Leg Subcutaneous Tissue and Fascia, Percutaneous Approach (ICD-10-PCS; 2025-04-02)
PROC: 8E0ZXY6 Isolation (ICD-10-PCS; 2025-04-04)
PROC: 0JBN3ZZ Excision of Right Lower Leg Subcutaneous Tissue and Fascia, Percutaneous Approach (ICD-10-PCS; principal; 2025-04-07)
DX: L03.116 Cellulitis of left lower limb (principal); L97.828 Non-pressure chronic ulcer of other part of left lower leg with other specified severity; B96.4 Proteus (mirabilis) (morganii) as the cause of diseases classified elsewhere; B95.2 Enterococcus as the cause of diseases classified elsewhere; B96.1 Klebsiella pneumoniae [K. pneumoniae] as the cause of diseases classified elsewhere; B96.5 Pseudomonas (aeruginosa) (mallei) (pseudomallei) as the cause of diseases classified elsewhere; E11.628 Type 2 diabetes mellitus with other skin complications; Z79.4 Long term (current) use of insulin; L08.9 Local infection of the skin and subcutaneous tissue, unspecified; I48.91 Unspecified atrial fibrillation; D64.9 Anemia, unspecified; E03.9 Hypothyroidism, unspecified; E86.0 Dehydration; I10 Essential (primary) hypertension; L03.115 Cellulitis of right lower limb; G47.33 Obstructive sleep apnea (adult) (pediatric); E78.5 Hyperlipidemia, unspecified